=== PATIENT | female | born 1960 | race Caucasian/White ===

== ENCOUNTER 2018-03-17 08:26 | Day surgery (SDC) | payer OTHER, SELFPAY ==
--- NOTE | 2018-03-17 | PATH_ITS ---
[facility] Accession Number: [id number] . 01 Material submitted: . POYLP AT 80CM . 02 Diagnosis: Colon, Polyp at 80 cm, Biopsy: Sessile serrated adenoma. [facility]/03/21/2018 . 02 Electronically signed: . Ann Marie Zamora MD, Pathologist NPI- [id number] . 01 Gross description: . POYLP AT 80CM: Received in formalin is 1 fragment(s) of lynch, soft tissue measuring 0.4 x 0.3 x 0.2 cm submitted entirely in 1 cassette(s) /TRC /TRC . 02 Pathologist provided ICD-10: D12.6 . 02 CPT . 919362 Performed at: 01 [facility] [address] [id number] MD Alexis Wills MD Phone: [phone] Performed at: 02 [facility] [address] [place], [place] [id number] MD David Bolanos MD Phone: [phone]
[2018-03-17 08:59] VITALS: BP 116/74; PULSE 65; RESP 16; TEMP 36.6; O2SAT 99; BMI 33.9
[2018-03-17 09:16] VITALS: BMI 33.9
[2018-03-17] MEDS: SODIUM CHLORIDE 0.9% 1,000 ML 200 ML IV ×2 (09:17→11:39)
--- NOTE | 2018-03-17 10:00 | P.HP_ITS ---
History of Present Illness Chief complaint: colonoscopy [id number] Narrative: Ewa Heaton is a 57 year old female who presents today for her 1st screening colonoscopy. She denies any problems or symptoms related to the function of her GI tract. She reports that she needs a colonoscopy as part of her health maintenance program. Patient History Surgical History History of tonsillectomy Status post endometrial ablation Status post knee surgery Family & Social History Family History: Reviewed 03/17/18 by Zoe Heard MD Social History: household members spouse Meds Home Medications Medication Instructions Recorded Confirmed Type cholecalciferol (vitamin D3) 50,000 unit PO 2X/WEEK #20 cap 12/11/16 Rx hydrochlorothiazide 25 mg PO QDAY #90 tab 04/08/17 Rx [tumeric] #0 08/04/17 History triamcinolone acetonide 1 marie TOPICAL BID #30 gm 08/04/17 Rx [cod liver oil] #0 01/12/18 History levothyroxine [Synthroid] 88 mcg PO QAM #30 tab 01/14/18 Rx pravastatin 20 mg PO HS #30 tab 01/14/18 Rx Allergies Allergy/AdvReac Type Severity Reaction Status Date / Time amoxicillin [AMOXICILLIN] Allergy Severe HIVES, Unverified 03/17/18 08:59 ANGIOEDEMA clavulanic acid Allergy Severe HIVES, Unverified 03/17/18 08:59 [CLAVULANIC ACID] ANGIOEDEMA Penicillins [PENICILLINS] Allergy Unknown Unverified 03/17/18 08:59 Review of Systems Review of Systems All systems reviewed & are unremarkable except as noted in HPI and below Exam Vital Signs (past 8 hours): Vital Signs - 8 hr 3 03/17/18 08:59 Temperature 97.8 F Pulse Rate 65 Respiratory Rate 16 Blood Pressure 116/74 Pulse Oximetry 99 Pulse Oximetry 99 Oxygen Delivery Method Room Air Narrative Exam Narrative: Very pleasant well-nourished well-developed healthy-appearing lady in no obvious distress. HEENT: Normocephalic and atraumatic, pupils equal round reactive to light accommodation with anicteric sclera Lungs: Clear to auscultation bilaterally Heart: Regular rate and rhythm without murmur Abdomen: Soft, nontender, active bowel sounds Extremities: Warm and well-perfused without edema Assessment & Plan Plan: Plan: Very pleasant and healthy lady in need of a screening colonoscopy. We discussed the risks and benefits of the procedure the patient has expressed a desire to continue today
[2018-03-17] MEDS: ONDANSETRON 4 MG/2 ML INJ IV ×2 (10:27→11:40)
[2018-03-17] MEDS: MIDAZOLAM 5 MG/5 ML VIAL IV (10:29)
[2018-03-17] MEDS: fentaNYL 250 MCG/5 ML INJ IV (10:31)
--- NOTE | 2018-03-17 10:41 | PM.OP.1 ---
Operative Date/Time/Diagnoses - Date of procedure: 03/17/18 Time of procedure: 10:41 Pre-op diagnosis: Screening Post-op diagnosis: same Procedure & Clinicians Procedure: Colonoscopy to the cecum with polypectomy Same procedure as scheduled: Yes Indications: No prior colonoscopy Surgeon: Zoe Heard Click Yes if Unassisted: Yes Anesthesia Type: Sedation (Versed 5 mg; fentanyl 200 mcg) Operative Notes Findings: 1. Adequate prep 2. Single polyp at 80 cm from the anal verge. The polyp was sessile and removed with cold forceps and submitted for pathology 3. Tortuous sigmoid and transverse colons 5. Significant diverticulosis between 30 and 40 cm from the anal verge. No significant stricture or narrowing 6. Grade 1-2 internal hemorrhoids Closure Type: not applicable Specimen(s): other (Polyp at 80 cm) Estimated Blood Loss (mL): 1 Procedure in detail: After obtaining informed consent, the patient was brought to the GI suite and placed in the left lateral decubitus position on the examination table. After placement of appropriate monitors, the patient was given incremental doses of Versed and Fentanyl until an appropriate level of sedation was achieved. A time out was held per SCOAP protocol. A digital rectal examination was performed and did not reveal any masses or obstructing lesions. The colonoscope was gently passed into the patient's anus and the entire colon navigated to the level of the cecum with minimal difficulty. Once in the cecum, the scope was withdrawn being sure to go before and beyond all mucosal folds and prominences and get an excellent examination. The findings are noted above. At the level of the rectal vault, the scope was retroflexed and the internal anal canal was examined. The scope was straightened and air aspirated from the colon. The instrument was removed from the patient's body and the procedure was concluded. The patient was allowed to awaken from sedation without difficulty and taken to the post-anesthesia care unit in good condition. Total sedation time 21 min Total withdrawal time 12 min Complications: none Condition: stable Disposition: PACU Plan for aftercare: 1. Discharge to home 2. Plan for next colonoscopy in 5 years or as clinically indicated
[2018-03-17 10:45] VITALS: BP 113/75; PULSE 70; RESP 16; TEMP 36.1; O2SAT 97
[2018-03-17 11:08] VITALS: BP 116/74; PULSE 70; RESP 16; O2SAT 93
[2018-03-17 11:23] VITALS: BP 109/72; PULSE 58; RESP 15; TEMP 36.3; O2SAT 98
[2018-03-17 12:23] VITALS: BP 122/83; PULSE 69; RESP 16; TEMP 36.1; O2SAT 98
--- NOTE | 2018-03-17 12:56 | SUR.PHASEII ---
PT DC TO HOME AT 1230 IN STABLE CONDITION. PT STATED SHE FELT LESS NAUSATED THAN PREVIOUSLY AND REQUESTED TO GO HOME. PT ABLE TO DRESS SELF WITH SBA FROM WITHOUT ANY DIFFICULTLY. INSTRUCTED PT TO CALL PROVIDER OFFICE IF NAUSEA LAST LONGER THAN SIX HOURS. PT AND PT SPOUSE VOICED UNDERSTANDING.
== END 2018-03-17 12:30 | disposition home or self-care (01) ==
PROVIDERS: PCP Family Medicine; Visit Provider Surgery
PROC: 0DJD8ZZ Inspection of Lower Intestinal Tract, Via Natural or Artificial Opening Endoscopic (ICD-10-PCS; CPT 45378; principal; 2018-03-17 09:45)
DX: Z12.11 Encounter for screening for malignant neoplasm of colon (principal); K57.30 Diverticulosis of large intestine without perforation or abscess without bleeding; K64.1 Second degree hemorrhoids; D12.4 Benign neoplasm of descending colon
CPT/HCPCS: 45380; 88305; 99152; J2250; J2405; J3010

== ENCOUNTER → 2018-03-23 09:58 | Outpatient (CLI) | payer OTHER, SELFPAY ==
[2018-03-23 11:13] LABS: TSH w/ Reflex to FT4 1.45 uIU/mL (0.47-4.68)
== END ==
PROVIDERS: PCP Family Medicine; Visit Provider Family Medicine
DX: E03.9 Hypothyroidism, unspecified (principal)
CPT/HCPCS: 36415; 84443

== ENCOUNTER → 2018-07-08 07:12 | Outpatient (CLI) | payer OTHER, SELFPAY ==
[2018-07-08 07:39] LABS: Alanine Aminotransferase 23 IU/L (9-52); Albumin 4.3 g/dL (3.5-5.0); Albumin Globulin Ratio 1.4 (1.0-2.8); Alkaline Phosphatase 35 U/L (38-126); Aspartate Aminotransferase 20 IU/L (14-36); BUN Creatinine Ratio 18.6 (6-22); Bilirubin Total 0.8 mg/dL (0.2-1.3); Blood Urea Nitrogen 13 mg/dL (7-17); Carbon Dioxide 30 mmol/L (22-32); Chloride 101 mmol/L (98-107); Cholesterol 224 mg/dL (140-199); Estimated Glomerular Filt Rate > 60.0 mL/min (>60); Glucose 101 mg/dL (70-100); HDL Cholesterol 50 mg/dL (40-60); HEMOLYSIS < 15 (0-50); LDL Cholesterol Calculated 144 mg/dL (<100); Potassium 3.8 mmol/L (3.4-5.1); Sodium 141 mmol/L (137-145); Total Protein 7.3 g/dL (6.3-8.2); Triglycerides 150 mg/dL (35-150)
== END ==
PROVIDERS: PCP Family Medicine; Visit Provider Family Medicine
DX: E78.2 Mixed hyperlipidemia (principal)
CPT/HCPCS: 36415; 80053; 80061

== ENCOUNTER → 2018-08-11 08:39 | Outpatient (CLI) | payer OTHER, SELFPAY | PROVIDERS: PCP Family Medicine; Visit Provider Otolaryngology | DX: R42 Dizziness and giddiness (principal); Z53.9 Procedure and treatment not carried out, unspecified reason ==

== ENCOUNTER 2018-08-12 22:18 | Observation (INO) | payer OTHER, SELFPAY ==
[2018-08-12 22:30] VITALS: BP 149/90; PULSE 69; RESP 18; TEMP 36.7; O2SAT 97; BMI 33.0
--- NOTE | 2018-08-12 22:49 | PC.NURSE ---
Pt reports sensation intact, no balance problem noted during ambulation from check in desk to the room 6.
--- NOTE | 2018-08-12 22:52 | DI.CT.S_ITS ---
PROCEDURE: CT HEAD/BRAIN WO CON INDICATIONS: stroke symptoms, now resolved TECHNIQUE: Noncontrast 4.5 mm thick angled axial sections acquired from the foramen magnum to the vertex, with coronal and sagittal reformats. For radiation dose reduction, the following was used: automated exposure control, adjustment of mA and/or kV according to patient size. COMPARISON: None. FINDINGS: Image quality: Excellent. CSF spaces: Basal cisterns are patent. No extra-axial fluid collections. Ventricles are normal in size and shape. Brain: No midline shift. No intracranial masses or hemorrhage. Moore-white matter interface is normal. Skull and face: Calvarium and visualized facial bones are intact, without suspicious lesions. Sinuses: Visualized sinuses and mastoids are clear. IMPRESSION: Normal for age, source of current symptoms is not seen. Note: These findings are concordant with the preliminary interpretation. Dictated by: Danny Biggs M.D. on 08/13/2018 at 8:32 Approved by: Danny Biggs M.D. on 08/13/2018 at 8:32
[2018-08-12 23:14] LABS: Prothrombin Time 10.8 SECONDS (10.1-12.7)
[2018-08-12 23:16] LABS: PTT Partial Thromboplastin Tim 29 SECONDS (26.4-36.2)
[2018-08-12 23:28] LABS: Bacteria Urine None Seen
[2018-08-12] MEDS: SODIUM CHLORIDE 0.9% 1,000 ML 150 ML IV (23:29)
[2018-08-12 23:35] LABS: Urine Amphetamines Negative (Negative); Urine Barbiturates Negative (Negative); Urine Benzodiazepines Negative (Negative); Urine Cocaine Negative (Negative); Urine MDMA Negative (Negative); Urine Methadone Negative (Negative); Urine Methamphetamines Negative (Negative); Urine Morphine/Opi cutoff 2000 Negative (Negative); Urine Oxycodone Negative (Negative); Urine Phencyclidine Negative (Negative); Urine Tetrahydrocannabinol Negative (Negative); Urine Tricyclic Antidepressant Negative (Negative)
[2018-08-12 23:41] LABS: RBC Urine 0-1/HPF (0-5/HPF); Squamous Epithelial Cell Urine 0-1 /HPF; WBC Urine 0-1/HPF (0-5/HPF)
[2018-08-12 23:41] LABS: Add Manual Diff / Slide Review NO; Eosinophils Percent Auto 2.2 % (2-4); Hematocrit 39.9 % (36-46); Hemoglobin 13.5 g/dL (12.0-16.0); Lymphocytes Percent Auto 36.9 % (25-40); Mean Corpuscular HGB Conc 33.8 % (30-36); Mean Corpuscular Hemoglobin 29.1 PG (26-34); Mean Corpuscular Volume 86.1 fL (80-100); Monocytes Percent Auto 10.8 % (3-14); Neutrophils Absolute Auto 3200 /uL (3000-5900); Neutrophils Percent Auto 48.1 % (50-75); Platelet Count 231 X10^3/uL (150-400); Red Blood Cell Count 4.63 X10^6/uL (4.0-5.2); Red Cell Distribution Width 13.8 % (11.6-14.8); White Blood Cell Count 6.6 X10^3/uL (4.5-11.0)
--- NOTE | 2018-08-12 23:41 | ED_ITS ---
HPI - Headache General Chief Complaint: Headache Stated Complaint: OCCULAR MIGRAINE CONFUSION NUMBNESS OF BACK OF HEA Time Seen by Provider: 08/12/18 22:20 Source: patient and family Mode of arrival: ambulatory Limitations: no limitations History of Present Illness HPI Narrative: 57-year-old former smoker female presents with a constellation of neurologic symptoms. At about 8:30 p.m. the patient had a sudden onset of visual disturbance in both eyes that included floating, flashing colors but no visual field cuts. Soon thereafter the patient describes a scenario where she was unable to speak. She can't think clearly and recognize that she was not getting the words out that she was trying to say. She denies any focal muscular problem such as numbness, weakness or tingling. She denies any recent injury or history of stroke. She denies any fever or chills. She does have a history of hypertension, hyperlipidemia and a strong family history of stroke. Her symptoms are resolved Onset (ago): hour(s) Onset description: sudden Related Data Home Medications Medication Instructions Recorded Confirmed [tumeric] 2 cap/day PO QAM #0 08/04/17 08/13/18 [cod liver oil] #0 01/12/18 07/12/18 cholecalciferol (vitamin D3) 2,000 2,000 unit PO DAILY 07/12/18 08/13/18 unit capsule ezetimibe 1 tab PO DAILY 08/12/18 08/13/18 hydrochlorothiazide 1 tab PO QDAY 08/12/18 08/13/18 levothyroxine [Synthroid] 1 tab PO QAM 08/12/18 08/13/18 Previous Rx's Medication Instructions Recorded triamcinolone acetonide 1 marie TOPICAL BID #30 gm 08/04/17 ezetimibe 10 mg tablet 10 mg PO DAILY #90 tab 04/15/18 Allergies Allergy/AdvReac Type Severity Reaction Status Date / Time amoxicillin [AMOXICILLIN] Allergy Severe HIVES, Verified 08/12/18 22:36 ANGIOEDEMA clavulanic acid Allergy Severe HIVES, Verified 08/12/18 22:36 [CLAVULANIC ACID] ANGIOEDEMA Penicillins [PENICILLINS] Allergy Unknown Verified 08/12/18 22:36 Review of Systems Review of Systems All systems reviewed & are unremarkable except as noted in HPI and below Constitutional Denies chills, Denies fever(s), Denies lethargy and Denies weakness Eyes Reports change in vision, Denies eye discharge, Denies irritation and Denies loss of vision ENT Ears, Nose, Mouth, and Throat: Denies change in voice, Denies neck pain and Denies sore throat Cardiovascular Denies chest pain, Denies irregular heart rhythm, Denies lightheadedness, Denies palpitations, Denies dyspnea, Denies dyspnea on exertion and Denies orthopnea Respiratory Denies cough, Denies dyspnea, Denies dyspnea on exertion and Denies wheezing Gastrointestinal Gastrointestinal: Denies abdominal pain, Denies change in bowel habits, Denies diarrhea, Denies nausea and Denies vomiting Genitourinary Denies hematuria, Denies flank pain, Denies urinary incontinence and Denies urinary urgency Musculoskeletal Denies neck pain Integumentary/Breasts Denies pruritus, Denies erythema, Denies rash and Denies wounds Neurologic Reports abnormal speech, Denies confusion, Reports lack of coordination, Denies loss of vision and Denies weakness Psychiatric Denies anxiety, Denies confusion, Denies depression, Denies homicidal ideation and Denies suicidal ideation Endocrine Denies palpitations Hematologic/Lymphatic Denies easy bruising Allergic/Immunologic Denies wheezing PFSH Medical History Hypertension (Acute) Asthma (Chronic) Foot pain (Chronic ~2015) Hay fever (Chronic) Hyperlipidemia (Chronic) Hypothyroidism (Chronic ~2012) Psoriasis (Chronic ~1989) Vertigo (Chronic ~2009) Chicken pox (Resolved ~1965) Shingles (Resolved ~06/09/16) Surgical History Anesthesia (Resolved) History of eyelid surgery (Resolved ~2013) History of tonsillectomy (~1965) Status post endometrial ablation (~2006) Status post knee surgery (~2012) Family History Mother Heart disease High cholesterol Mental health problem Grandfather Stroke Grandmother Stroke Grandfather Cancer Social History household members: spouse Smoking Status: Former smoker alcohol intake: never Exam Narrative Exam Narrative: 57-year-old female resting comfortably, in no obvious current distress GENERAL: This is a well-nourished, well-developed patient, in mild distress. HEAD: Atraumatic. Normocephalic. No temporal or scalp tenderness. EYES: Pupils equal round and reactive. Extraocular motions intact. No scleral icterus. No injection or drainage. ENT: Nose without bleeding, purulent drainage or septal hematoma. Throat without erythema, tonsillar hypertrophy or exudate. Uvula midline. Airway patent. NECK: Trachea midline. No JVD or lymphadenopathy. Supple, nontender, no meningeal signs. CARDIOVASCULAR: Regular rate and rhythm without murmurs, gallops, or rubs. RESPIRATORY: Clear to auscultation. Breath sounds equal bilaterally. No wheezes , rales, or rhonchi. GASTROINTESTINAL: Abdomen soft, non-tender, nondistended. No hepato-splenomegaly , or palpable masses. No guarding. EXTREMITIES: No clubbing, cyanosis, or edema. No joint tenderness, effusion, or edema noted. BACK: Nontender without deformity or crepitance. No flank tenderness. NEURO: AOx3. SKIN: No rash or erythema. Initial Vital Signs Initial Vital Signs: Vital Signs Temperature 98.1 F 08/12/18 22:30 Pulse Rate 69 08/12/18 22:30 Respiratory Rate 18 08/12/18 22:30 Blood Pressure 149/90 H 08/12/18 22:30 Pulse Oximetry 97 08/12/18 22:30 Scores ABCD2 Age >= 60 years: no Initial BP. Either SBP >= 140 or DBP >= 90.: yes Clinical features of the TIA: speech disturbance without weakness Duration of symptoms: 10-59 minutes History of diabetes: no ABCD2 Score: 3 NIH Stroke Scale Level of Conciousness: Alert, keenly responsive Ask month/age: Answers both questions correctly. Open/close eyes, close hand: Performs both tasks correctly Best gaze horizontal: Normal Visual cassidy: No visual loss Facial palsy: Normal symetrical movement Left arm drift: No drift for full 10 sec Right arm drift: No drift for full 10 sec Left leg drift: No drift for full 10 sec Right leg drift: No drift for full 10 sec Limb ataxia: Absent Sensory on face/arms/legs: Normal, no sensory loss Best language: No aphasia, normal Dysarthria: Normal Extinction or inattention: No abnormality Total NIH Stroke scale score: 0 Course Orders Ordered: ED Orders 08/12/18 22:52 CT head/brain wo con Stat EKG-12 Lead Stat 08/12/18 23:04 Partial Thromboplastin Time Stat Prothrombin Time INR Stat 08/12/18 23:15 Urine Culture Stat Urine Drug Screen, Rapid Stat Urine Microscopic Stat 08/12/18 23:27 Basic Metabolic Panel Stat Complete Blood Count AUTO DIFF Stat 08/13/18 01:24 EC echo doppler complete Stat MR stroke Stat Aspirin (Aspirin) 325 mg PO DAILY NATHALIE Ezetimibe (Zetia) 10 mg PO DAILY NATHALIE Discontinued Medications Aspirin (Aspirin Chew) 324 mg PO NOW ONE Stop: 08/12/18 23:45 Last Admin: 08/13/18 00:24 Dose: 324 mg Sodium Chloride (Normal Saline 0.9%) 1,000 mls @ 150 mls/hr IV CONT NATHALIE Last Infusion: 08/13/18 00:30 Dose: 150 mls/hr Admin: 08/12/18 23:29 Dose: 150 mls/hr Vital Signs - 8 hr 08/12/18 22:30 08/13/18 00:30 08/13/18 01:31 Temperature 98.1 F 98.2 F Pulse Rate 69 81 77 Respiratory Rate 18 16 20 Blood Pressure 149/90 H 150/73 H Blood Pressure [Right Arm] 134/81 Pulse Oximetry 97 99 97 MDM - Headache Differential Diagnosis Differential diagnosis: Likely migraine, tension headache, headache and meningitis Medical Records Attestation: I reviewed the patient's medical records. Lab Data Attestation: I reviewed the patient's lab results. Result diagrams: 08/12/18 23:27 08/12/18 23:27 Lab Results 08/12/18 08/12/18 08/12/18 Range/Units 23:04 23:15 23:15 WBC (4.5-11.0) X10^3/uL RBC (4.0-5.2) X10^6/uL Hgb (12.0-16.0) g/dL Hct (36-46) % MCV (80-100) fL MCH (26-34) PG MCHC (30-36) % RDW (11.6-14.8) % Plt Count (150-400) X10^3/uL Neut % (Auto) (50-75) % Lymph % (Auto) (25-40) % [place] % (Auto) (3-14) % Eos % (Auto) (2-4) % Baso % (Auto) (0-2) % Neut # (Auto) (3799-2092) /uL PT 10.8 (10.1-12.7) SECONDS INR 1.0 (0.9-1.3) APTT 29 (26.4-36.2) SECONDS Sodium (137-145) mmol/L Potassium (3.4-5.1) mmol/L Chloride (98-107) mmol/L Carbon Dioxide (22-32) mmol/L BUN (7-17) mg/dL Creatinine (0.52-1.04) mg/dL Estimated GFR (>60) mL/min BUN/Creatinine Ratio (6-22) Glucose (70-100) mg/dL Calcium (8.4-10.2) mg/dL Urine RBC 0-1/hpf (0-5/HPF) Urine WBC 0-1/hpf (0-5/HPF) Ur Squamous Epith Cells 0-1 /hpf Urine Bacteria None seen (None) Ur Culture Indicated? Specimen cultured Micro UA Comment Not Reportable Urine Opiates Screen Negative (Negative) Ur Oxycodone Screen Negative (Negative) Urine Methadone Screen Negative (Negative) Ur Barbiturates Screen Negative (Negative) U Tricyclic Antidepress Negative (Negative) Ur Phencyclidine Scrn Negative (Negative) Ur Amphetamines Screen Negative (Negative) U Methamphetamines Scrn Negative (Negative) Ur MDMA Scrn (Ecstasy) Negative (Negative) U Benzodiazepines Scrn Negative (Negative) Urine Cocaine Screen Negative (Negative) U Marijuana (THC) Screen Negative (Negative) 08/12/18 08/12/18 Range/Units 23:27 23:27 WBC 6.6 (4.5-11.0) X10^3/uL RBC 4.63 (4.0-5.2) X10^6/uL Hgb 13.5 (12.0-16.0) g/dL Hct 39.9 (36-46) % MCV 86.1 (80-100) fL MCH 29.1 (26-34) PG MCHC 33.8 (30-36) % RDW 13.8 (11.6-14.8) % Plt Count 231 (150-400) X10^3/uL Neut % (Auto) 48.1 L (50-75) % Lymph % (Auto) 36.9 (25-40) % [place] % (Auto) 10.8 (3-14) % Eos % (Auto) 2.2 (2-4) % Baso % (Auto) 2.0 (0-2) % Neut # (Auto) 3200 (1719-2002) /uL PT (10.1-12.7) SECONDS INR (0.9-1.3) APTT (26.4-36.2) SECONDS Sodium 139 (137-145) mmol/L Potassium 3.0 L (3.4-5.1) mmol/L Chloride 102 (98-107) mmol/L Carbon Dioxide 28 (22-32) mmol/L BUN 12 (7-17) mg/dL Creatinine 0.70 (0.52-1.04) mg/dL Estimated GFR > 60.0 (>60) mL/min BUN/Creatinine Ratio 17.1 (6-22) Glucose 100 (70-100) mg/dL Calcium 8.8 (8.4-10.2) mg/dL Urine RBC (0-5/HPF) Urine WBC (0-5/HPF) Ur Squamous Epith Cells Urine Bacteria (None) Ur Culture Indicated? Micro UA Comment Urine Opiates Screen (Negative) Ur Oxycodone Screen (Negative) Urine Methadone Screen (Negative) Ur Barbiturates Screen (Negative) U Tricyclic Antidepress (Negative) Ur Phencyclidine Scrn (Negative) Ur Amphetamines Screen (Negative) U Methamphetamines Scrn (Negative) Ur MDMA Scrn (Ecstasy) (Negative) U Benzodiazepines Scrn (Negative) Urine Cocaine Screen (Negative) U Marijuana (THC) Screen (Negative) Urine Dip Bedside Urine Glucose Negative Bedside Urine Bilirubin - Negative Bedside Urine Ketone - Negative Urine Specific [place] 1.015 Bedside Urine Occult Blood +/- Bedside Urine pH 6.5 Bedside Urine Protein - Negative Bedside Urine Urobilinogen - Negative Bedside Urine Nitrite - Negative Bedside Urine Leukocytes + [address] scan - head: Radiologist's impression: No acute intracranial abnormality ECG Data Attestation: I personally reviewed and interpreted this ECG as follows: Prior ECG tracings: not available for review Interpretation: EKG is normal sinus rhythm and free of any signs of ischemia or ectopy. Discharge Plan Departure Patient Disposition: Admitted as Observation Clinical Impression: Brain TIA Discharge Date/Time: 08/13/18 00:50 Interventions: ED Discharge Assessment Last Done: 08/13/18 00:47 Admit Date/Time: 08/13/18 00:21 Admit Provider: Jose Potter
[2018-08-12 23:42] LABS: Culture Indicated Urine Specimen Cultured
[2018-08-12 23:44] LABS: BUN Creatinine Ratio 17.1 (6-22); Blood Urea Nitrogen 12 mg/dL (7-17); Calcium 8.8 mg/dL (8.4-10.2); Carbon Dioxide 28 mmol/L (22-32); Chloride 102 mmol/L (98-107); Estimated Glomerular Filt Rate > 60.0 mL/min (>60); Glucose 100 mg/dL (70-100); HEMOLYSIS < 15 (0-50); Sodium 139 mmol/L (137-145)
[2018-08-13] MEDS: ASPIRIN 81 MG TAB 324 MG PO (00:24)
[2018-08-13 00:30] VITALS: BP 134/81; PULSE 81; RESP 16; O2SAT 99
[2018-08-13 01:10] VITALS: BMI 33.0
--- NOTE | 2018-08-13 01:24 | DI.MRI.S_ITS ---
PROCEDURE: MR STROKE Pre- and post-contrast brain MRI, non-contrast brain MR angiogram, pre- and postcontrast neck MR angiogram INDICATIONS: vision/speech change TECHNIQUE: Brain: Noncontrast axial T1 spin echo, axial T2 fast spin echo, sagittal and axial FLAIR, coronal T2 fast spin echo, axial gradient echo, axial diffusion and ADC through the brain. After the administration of contrast, axial 3D VIBE of the cranial vasculature and brain. Brain MRA: Non-contrast 3-D time of flight MR angiogram, with multiple lcnvksp-cziukvgec-wiieljzkrd (MIP) reformats performed. Neck MRA: Axial and sagittal TruFISP through the neck. Coronal dynamic MR angiogram during administration of contrast in the arterial and venous phases, with 3-dimenstional ovouzrm-tfrklakdg-tliqbdrgpd (MIP) reformats constructed from subtraction images. COMPARISON: None. FINDINGS: Image quality: Excellent. BRAIN: CSF spaces: Ventricles are normal in size and shape. Basal cisterns are patent. No extra-axial fluid collections. Brain: No intracranial bleeds or mass effects. Moore-white matter interface is normal. Diffusion weighted images show no acute ischemic insults. Brainstem appears normal. Normal intravascular flow voids are present. No abnormal intracranial enhancement. Skull and face: Calvarial marrow signal is normal. Orbits appear normal. Sinuses: Sinuses and mastoids are clear. BRAIN MR ANGIOGRAM: Anterior circulation: Intracranial internal carotid arteries are normal in size and enhancement. The flow within the paired anterior cerebral arteries is normal and symmetric. The flow within the middle cerebral arteries is normal and symmetric. The anterior communicating artery is seen. No stenoses, occlusions, or aneurysms. Posterior circulation: The visualized portions of the vertebral arteries demonstrate normal caliber, and join to form a normal appearing basilar artery. The flow within the posterior cerebral arteries is normal and symmetric. No stenoses, occlusions, or aneurysms. NECK MR ANGIOGRAM: Carotids: Great vessels demonstrate a conventional anatomy as they arise from the aortic arch. The origins of the common carotid arteries appear patent. The calibers and courses of both common carotid arteries are normal. The bifurcation regions appear normal bilaterally. The internal carotid arteries demonstrate normal course and caliber. Posterior circulation: The origins of the vertebral arteries appear patent. More superior portions of both vertebral arteries demonstrate asymmetric course and caliber, with the left vertebral artery dominant and the right vertebral artery extending contiguously into the right posterior inferior cerebellar artery. Miscellaneous: Subclavian arteries appear patent. Pre-contrast images through the neck show no soft tissue abnormalities. IMPRESSION: BRAIN MRI: Normal for age. BRAIN MR ANGIOGRAM: Normal intracranial MR angiogram. NECK MR ANGIOGRAM: Normal cervical MR angiogram with left vertebral artery dominant as a normal anatomic variant and contiguous extension of the superior right vertebral artery into the right posterior inferior cerebellar artery. Dictated by: Danny Biggs M.D. on 08/13/2018 at 13:03 Approved by: Danny Biggs M.D. on 08/13/2018 at 13:08
--- NOTE | 2018-08-13 01:24 | DI.ECHO.S_ITS ---
[place] [facility]---------+ [facility] +---------+ : : [address] : [address] : : : : [id number] : : : : Phone: [phone]---------+ Echocardiogram Report + + :Name: CHERIE HERRERA Study Date: 08/13/2018 Height: 66 in : :[facility] Exam Location: [facility] Weight: 205 lb : : Gender: Female BSA: 2.0 m2 : :: 1960 Age: 57 yrs BP: 119/87 mmHg: :Reason For Study: STROKE : : Performed By: Ino Child : :Referring: KE KILLIAN : + + Interpretation Summary 1) Normal left ventricular thickness, size, wall motion, and systolic function (EF 60-65%). 2) Normal right ventricular size and function. 3) No significant valvular abnormalities. 4) Compared to the Echo done 06/30/2012, no significant change. Procedure: A two-dimensional transthoracic echocardiogram with color flow and Doppler was performed. The study quality was technically good. Comparison is made with the echocardiogram of 06/30/12. A saline contrast injection was performed to assess for cardiac shunting. The patient was in normal sinus rhythm during the exam. Left Ventricle: The left ventricle is normal in size. There is normal left ventricular wall thickness. The ejection fraction is estimated to be 60-65%. There are no focal wall motion abnormalities. Right Ventricle: The right ventricle is normal in size and function. Atria: The left atrium is mildly dilated. Right atrial size is normal. Injection of contrast documented no interatrial shunt. Mitral Valve: The mitral valve is normal in structure and function. There is trace mitral regurgitation. Aortic Valve: The aortic valve is normal in structure and function. The aortic valve is trileaflet. The aortic valve opens well. No aortic regurgitation is present. Tricuspid Valve: The tricuspid valve is normal in structure and function. There is trace tricuspid regurgitation. The right ventricular systolic pressure is estimated to be at least 19 mmHg based on an estimated right atrial pressure of 3 mm Hg. Pulmonic Valve: The pulmonic valve is normal in structure and function. There is no pulmonic valvular regurgitation. Great Vessels: The aortic root is normal size. The dimensions of the ascending aorta are normal. The pulmonary artery is normal size. The IVC is of normal diameter and collapses greater than 50% with a sniff. This suggests a low right atrial pressure of 3 mm Hg. Pericardium/ Pleura There is no pericardial effusion. There is no pleural effusion. MMode/2D Measurements & Calculations LVIDd: 4.4 cm Ao root diam: 3.4 cm LVIDs: 3.1 cm Aortic Jxn: 2.3 cm FS: 29.3 % asc Aorta Diam: 3.4 cm EPSS: 0.29 cm IVSd: 1.0 cm LVPWd: 0.90 cm LV landrum. diameter/BSA (cm/m^2): 2.2 LV sys. diameter/BSA (cm/m^2): 1.5 LA dimension: 3.3 cm RA long axis: 4.5 cm LA A2 area: 21.4 cm2 RA area: 16.5 cm2 LA A4 area: 21.8 cm2 RA vol: 51.5 ml LA length (vol): 5.0 cm RA : 25.5 ml/m2 LA vol: 78.9 ml IVC diam: 1.7 cm LA vol index: 39.0 ml/m2 Doppler Measurements & Calculations Ao V2 max: 117.2 cm/sec LVOT Max Maxim: 101.7 cm/sec Ao V2 mean: 84.8 cm/sec LV V1 max P.1 mmHg Ao max P.5 mmHg LV V1 VTI: 22.7 cm Ao mean P.1 mmHg sev ratio: 0.98 Ao V2 VTI: 23.0 cm MV E max maxim: 52.7 cm/sec TR max maxim: 197.6 cm/sec MV A max maxim: 60.1 cm/sec TR max P.6 mmHg MV E/A: 0.88 PA V2 max: 83.0 cm/sec Med Peak E' Maxim: 6.2 cm/sec PA V2 mean: 59.4 cm/sec E/E' med: 8.5 PA mean P.6 mmHg Lat Peak E' Maxim: 9.9 cm/sec PA pr(Accel): 26.6 mmHg E/E' lat: 5.3 PA Accel Time: 0.12 sec E/e' average: 6.9 MV dec time: 0.19 sec Pulm A Revs Maxim: 24.2 cm/sec Reading Physician:03:18 PM
[2018-08-13 01:31] VITALS: BP 150/73; PULSE 77; RESP 20; TEMP 36.8; O2SAT 97
--- NOTE | 2018-08-13 01:32 | PC.NURSE ---
Late Entry at 0045-swallow test completed. Pt speech clear and able to follow instructions and able to manage oral secretions. Pt able to take sips of water and drinking water w/o clearing throat, coughing. Medicated pt with ASA w/o difficulty.
--- NOTE | 2018-08-13 02:26 | PC.NURSE ---
Admitted to room 218, oriented to her room. Showed her call light, TV & bed controls. Denies any BRICE, CP. & other discomfort. No C/O dizziness & nausea, ambulated to the BR & gait steady. Encouraged to call for any assistance, call light w/in reached. Will cont. POC & monitor.
[2018-08-13 05:34] VITALS: BP 133/73; PULSE 69; RESP 20; TEMP 36.8; O2SAT 98
[2018-08-13 07:50] VITALS: BP 130/74; PULSE 67; RESP 16; TEMP 37.2; O2SAT 99
[2018-08-13] MEDS: SODIUM CHLORIDE 0.9% FLUSH 10 ML IV (09:39)
[2018-08-13] MEDS: EZETIMIBE 10 MG TABLET PO (09:39)
[2018-08-13] MEDS: ASPIRIN 325 MG TABLET PO (09:39)
[2018-08-13] MEDS: LORazepam 2 MG/ML SYRINGE 0.5 MG IV ×2 (11:01→11:36)
[2018-08-13] MEDS: POTASSIUM CHLORIDE 20 MEQ/15 ML UDC 40 MEQ PO (12:32)
[2018-08-13 12:55] VITALS: BP 119/84; PULSE 81; RESP 18; TEMP 37.1; O2SAT 97
--- NOTE | 2018-08-13 14:31 | PC.NURSE ---
Patient without complaint. Denies vision changes. Ambulating independently. Medicated with IV ativan per MD order prior to MRI for patient's severe claustrophobia. Patient able to complete MRI without problems. ECHO done at bedside, now awaiting interpretation. Dr. Potter reported this morning that likely patient will be able to discharge soon if stable and results wnl back. Will continue to follow. Patient's sister at bedside, call light within reach.
--- NOTE | 2018-08-13 15:14 | PC.NURSE ---
Dr. Potter called, telephone order received that patient is cleared to be discharged to home tonight after dinner. No new prescriptions or medications. Patient to continue all home medications as previously prescribed. Patient to follow up with her PCP Dr. Miguel next week.
--- NOTE | 2018-08-13 15:29 | CM.DANOTE ---
DCP/Assessement: Reviewed chart. Patient is a 57yr old female admitted to [facility] under [facility] status with migraine. PCP is Dr. Miguel. Primary payor is 1)Alia Chan. Met with patient explained CM/SW role. Patient reports that she is discharging home today. Patient has family in the room and does not anticipate any d/c planning needs. P: Home when medically stable. Orders anticipated for later this afternoon. TYSON Sebastian Discharge Planning/Care Management CM Discharge Assessment Start: 08/13/18 15:26 Freq: Status: Active Protocol: Document 08/13/18 15:26 KJS (Rec: 08/13/18 15:29 KJS [id number]) Discharge Planning Assessment Assigned Operations General Agent TYSON Sebastian Contact Information Jamin Heaton (spouse) Advance Directives? No Advance Directives on File No History Provided By Patient Family Member Has Patient been admitted in last 30 No days? Prior Living Arrangements House Household Members spouse Type of transporation used prior to Drives own vehicle admit Independent with ADL's Yes Is patient alert and oriented? Yes Caregiver for Another No Barriers to Discharge No Discharge Plan Home Transportation Arrangement Family to provide transport home. Referrals Initiated None needed Whiteboard Updated in Patient Room with No name and ext. # of Operations General Agent Comment Attempted no pen in room. Patient discharging today without any d/c planning needs or concerns. Review Status In Process Please Provide Date Initial DC 08/13/18 Assessment Was Performed Next Review Type Continued Stay Review
[2018-08-13 15:44] VITALS: BP 117/79; PULSE 73; RESP 18; TEMP 37.1; O2SAT 97
--- NOTE | 2018-08-13 18:33 | PM.DS.1 ---
History of Present Illness Chief complaint: OCCULAR MIGRAINE CONFUSION NUMBNESS OF BACK OF HEA Discharge Providers Date of admission: 08/13/18 00:21 Primary care physician: Claudia Covington DO Discharge provider: Jose Potter MD Discharge Date: 08/13/18 Summary Discharge Diagnosis: TIA Hypertension Hyperlipidemia Vertigo Hospital Course: Patient was admitted to the hospital with visual changes and difficulty with speech. There was concern for TIA. Initial workup in emergency department was normal with EKG telemetry and CT of the head. She was evaluated in the hospital with a MRI angiogram stroke protocol the brain carotid ultrasound was ordered but they were not able to do it over the weekend she had an echocardiogram which was normal. During hospital slightly her monitoring specialist was normal there are no signs of irregular heartbeats. Time of discharge was eating ambulating well and neurologically was intact. Exam Vital Signs (past 8 hours): - 08/13/18 12:55 08/13/18 15:44 Temperature 98.8 F 98.8 F Pulse Rate 81 73 Respiratory Rate 18 18 Blood Pressure 119/84 117/79 Pulse Oximetry 97 97 Oxygen Delivery Method Room Air Oxygen Flow Rate 0 Objective Labs Result Diagrams: 08/12/18 23:27 08/12/18 23:27 Labs: Laboratory Results - last 24 hr 08/12/18 08/12/18 08/12/18 23:04 23:15 23:15 WBC RBC Hgb Hct MCV MCH MCHC RDW Plt Count Neut % (Auto) Lymph % (Auto) Kaufman % (Auto) Eos % (Auto) Baso % (Auto) Neut # (Auto) PT 10.8 INR 1.0 APTT 29 Sodium Potassium Chloride Carbon Dioxide BUN Creatinine Estimated GFR BUN/Creatinine Ratio Glucose Calcium Urine RBC 0-1/hpf Urine WBC 0-1/hpf Ur Squamous Epith Cells 0-1 /hpf Urine Bacteria None seen Ur Culture Indicated? Specimen cultured Micro UA Comment Not Reportable Urine Opiates Screen Negative Ur Oxycodone Screen Negative Urine Methadone Screen Negative Ur Barbiturates Screen Negative U Tricyclic Antidepress Negative Ur Phencyclidine Scrn Negative Ur Amphetamines Screen Negative U Methamphetamines Scrn Negative Ur MDMA Scrn (Ecstasy) Negative U Benzodiazepines Scrn Negative Urine Cocaine Screen Negative U Marijuana (THC) Screen Negative 08/12/18 08/12/18 23:27 23:27 WBC 6.6 RBC 4.63 Hgb 13.5 Hct 39.9 MCV 86.1 MCH 29.1 MCHC 33.8 RDW 13.8 Plt Count 231 Neut % (Auto) 48.1 L Lymph % (Auto) 36.9 Kaufman % (Auto) 10.8 Eos % (Auto) 2.2 Baso % (Auto) 2.0 Neut # (Auto) 3200 PT INR APTT Sodium 139 Potassium 3.0 L Chloride 102 Carbon Dioxide 28 BUN 12 Creatinine 0.70 Estimated GFR > 60.0 BUN/Creatinine Ratio 17.1 Glucose 100 Calcium 8.8 Urine RBC Urine WBC Ur Squamous Epith Cells Urine Bacteria Ur Culture Indicated? Micro UA Comment Urine Opiates Screen Ur Oxycodone Screen Urine Methadone Screen Ur Barbiturates Screen U Tricyclic Antidepress Ur Phencyclidine Scrn Ur Amphetamines Screen U Methamphetamines Scrn Ur MDMA Scrn (Ecstasy) U Benzodiazepines Scrn Urine Cocaine Screen U Marijuana (THC) Screen Discharge Plan Discharge Plan Patient Disposition: Home Discharge comment: f/u [address] covington Discharge Med Rec/Prescriptions Prescriptions: New aspirin [Aspirin Low Dose] 81 mg tablet,delayed release (DR/EC) 81 mg PO DAILY Qty: 30 RF: 0 Continue [tumeric] capsule 2 cap/day PO QAM Qty: 0 RF: 0 triamcinolone acetonide 0.1 % cream 1 marie Topical BID Qty: 30 RF: 0 ezetimibe [Zetia] 10 mg tablet 10 mg PO DAILY Qty: 90 RF: 2 cholecalciferol (vitamin D3) 2,000 unit capsule 2,000 unit PO DAILY RF: 0 ezetimibe 10 mg tablet 1 tab PO DAILY RF: 0 levothyroxine [Synthroid] 88 mcg tablet 1 tab PO QAM RF: 0 hydrochlorothiazide 25 mg tablet 1 tab PO QDAY RF: 0 Follow up/Referrals: Claudia Covington DO [Primary Care Provider] - Visit Report/Discharge Packet Visit Report Forms: Congestive Heart Failure, Stroke Signs & Symptoms Discharge Data Primary Care Provider: Claudia Covington Attending Provider: Jose Potter Admit Date/Time: 08/13/18 00:21 Discharges patient from system. Discharge Date/Time: 08/13/18 16:02 Quality VTE Deep Vein Thrombosis/Pulmonary Embolism Present on Admission: No
== END 2018-08-13 16:02 | disposition home or self-care (01) ==
LOC: ED 23:40 → AC 08-13 06:43
PROVIDERS: Admitting Provider Family Medicine; Emergency Provider Emergency Medicine; PCP Family Medicine; Visit Provider Family Medicine
DX: G45.9 Transient cerebral ischemic attack, unspecified (principal); G43.B0 Ophthalmoplegic migraine, not intractable; I10 Essential (primary) hypertension; E78.5 Hyperlipidemia, unspecified; Z87.891 Personal history of nicotine dependence; J45.909 Unspecified asthma, uncomplicated; R42 Dizziness and giddiness; R41.0 Disorientation, unspecified; R20.0 Anesthesia of skin
CPT/HCPCS: 36591; 70450; 70553; 80048; 80305; 81003; 81015; 85025; 85610; 85730; 87086; 93005; 93010; 93306; 99283; 99285; 99291; G0378; J2060

== ENCOUNTER → 2018-09-01 12:35 | Outpatient (CLI) | payer OTHER, SELFPAY ==
[2018-08-13 01:10] VITALS: BMI 33.0
--- NOTE | 2018-09-01 12:37 | DI.US.S_ITS ---
PROCEDURE: US CAROTID DOPPLER BI INDICATIONS: TIA TECHNIQUE: Color and pulse Doppler interrogation was performed of both carotid systems, with image documentation and velocity measurements. COMPARISON: None. FINDINGS: Stenosis calculations are based on SRU (Society of Radiologists in Ultrasound) criteria. Right side: Brachial blood pressure: 124/84 mm Hg. Common carotid artery peak systolic velocity: 88 cm/sec. Internal carotid artery peak systolic velocity: 80 cm/sec. Internal carotid artery end diastolic velocity: 30 cm/sec. External carotid artery peak systolic velocity: 82 cm/sec. ICA/CCA peak systolic ratio: 0.9. Moore scale imaging description: Mild soft plaque Percent internal carotid artery stenosis: Less than 50% stenosis. Vertebral artery: Flow direction is antegrade. Left side: Brachial blood pressure: 125/86 mm Hg. Common carotid artery peak systolic velocity: 105 cm/sec. Internal carotid artery peak systolic velocity: 94 cm/sec. Internal carotid artery end diastolic velocity: 37 cm/sec. External carotid artery peak systolic velocity: 90 cm/sec. ICA/CCA peak systolic ratio: 0.9. Moore scale imaging description: No calcific or soft plaque Percent internal carotid artery stenosis: None seen. Vertebral artery: Flow direction is antegrade. IMPRESSION: Less than 50% stenosis at the proximal internal carotid artery on the right and none seen on the left. Vertebral arterial flow is antegrade in direction. Dictated by: Danny Biggs M.D. on 09/01/2018 at 15:25 Approved by: Danny Biggs M.D. on 09/01/2018 at 15:27
== END ==
PROVIDERS: PCP Family Medicine; Visit Provider Family Medicine
DX: G45.9 Transient cerebral ischemic attack, unspecified (principal); I65.21 Occlusion and stenosis of right carotid artery
CPT/HCPCS: 93880

== ENCOUNTER → 2018-09-29 09:27 | Outpatient (CLI) | payer OTHER, SELFPAY ==
[2018-09-15 10:08] VITALS: BMI 33.0
--- NOTE | 2018-09-29 | DI.MG.S_ITS ---
BILATERAL DIGITAL SCREENING MAMMOGRAM 3D/2D WITH CAD: 09/29/2018 CLINICAL: Routine screening. Comparison is made to exams dated: 09/07/2017 mammogram, 08/27/2014 mammogram, and 08/10/2013 mammogram - [facility]. The tissue of both breasts is heterogeneously dense. This may lower the sensitivity of mammography. Current study was also evaluated with a Computer Aided Detection (CAD) system. No significant masses, calcifications, or other findings are seen in either breast. There has been no significant interval change. IMPRESSION: NEGATIVE There is no mammographic evidence of malignancy. A 1 year screening mammogram is recommended. This exam was interpreted at Station ID: [id number]. NOTE: For mammograms, a report in lay terms will be sent to the patient. Approximately 15% of breast malignancies will not be visualized mammographically. In the management of a palpable breast mass, a negative mammogram must not discourage biopsy of a clinically suspicious lesion. Electronically Signed By: Alexis venegas/rishi:09/29/2018 17:26:40 copy to: Kimi Healy letter sent: Normal Exam ACR BI-RADS Category 1: Negative [id number]
== END ==
PROVIDERS: Family Provider Obstetrics & Gynecology; PCP Family Medicine; Visit Provider Family Medicine
DX: Z12.31 Encounter for screening mammogram for malignant neoplasm of breast (principal)
CPT/HCPCS: 77063; 77067

== ENCOUNTER 2018-11-15 09:59 | Emergency (ER) | payer OTHER, SELFPAY ==
[2018-09-15 10:08] VITALS: BMI 33.0
[2018-11-15 10:00] VITALS: BP 140/94; PULSE 77; RESP 18; TEMP 36.6; O2SAT 98
[2018-11-15 11:35] VITALS: BP 119/73; PULSE 63; RESP 16; O2SAT 98
--- NOTE | 2018-11-15 12:31 | ED.TRAUMA ---
HPI - Trauma <LADONNA Barba - Last Filed: 11/15/18 13:35> General Chief Complaint: Trauma Stated Complaint: hit bottom of chin on log wednesday Time Seen by Provider: 11/15/18 10:29 Source: patient Mode of arrival: ambulatory Limitations: no limitations History of Present Illness HPI narrative: Patient is a 58-year-old female former smoker with history of TIA who presents by herself chief complaint dizziness, fatigue slight confusion since a ground level fall on Wednesday. She states she tripped and hit her head on a log at 11:00 a.m. on Wednesday. She denies loss of consciousness, but states she dizzy vision headaches fatigued throughout the day. Since then her vision is improved. However dizziness, lightheadedness, foggy feeling has not improved since and has worsened. She complains of bruising on her chin. She states she broke her tooth during the fall. She has not followed up with a dentist yet, but has that arranged. She also complains of neck pain. She has not any blood thinners at this point in time. Related Data Home Medications Medication Instructions Recorded Confirmed turmeric 2 cap/day PO QAM #0 08/04/17 11/15/18 cholecalciferol (vitamin D3) 2,000 2,000 unit PO DAILY 07/12/18 11/15/18 unit capsule hydrochlorothiazide 25 mg PO DAILY 08/12/18 11/15/18 levothyroxine [Synthroid] 88 mcg PO QAM 08/12/18 11/15/18 magnesium oxide 400 mg PO DAILY 11/15/18 11/15/18 Previous Rx's Medication Instructions Recorded ezetimibe 10 mg tablet 10 mg PO DAILY #90 tab 04/15/18 aspirin [Aspirin Low Dose] 81 mg PO DAILY #30 tab 08/13/18 Allergies Allergy/AdvReac Type Severity Reaction Status Date / Time amoxicillin [AMOXICILLIN] Allergy Severe HIVES, Verified 09/26/18 15:05 ANGIOEDEMA clavulanic acid Allergy Severe HIVES, Verified 09/26/18 15:05 [CLAVULANIC ACID] ANGIOEDEMA Penicillins [PENICILLINS] Allergy Unknown Verified 09/26/18 15:05 Review of Systems <LADONNA Barba - Last Filed: 11/15/18 13:35> Review of Systems GENERAL: Denies chills, fatigue, malaise, fever, sweats. HEENT: Denies sinus pain, ear pain, sore throat, difficulty swallowing, dizziness. RESPIRATORY: Denies dyspnea, cough, wheezing, hemoptysis, sputum. CARDIOVASCULAR: Denies chest pain, palpitations, orthopnea, edema, GASTROINTESTINAL: Denies nausea, vomiting, abdominal pain, diarrhea, constipation, melena. : Denies dysuria, frequency, incontinence, hematuria, urinary retention. MUSCULOSKELETAL: See HPI SKIN: See HPI NEUROLOGIC: See HPI PSYCHIATRIC: No concerning psychosocial issues. 12 point review of systems is negative except for those stated above Exam <Griselda Geiger, FRAUD INVESTIGATOR-BC - Last Filed: 11/15/18 13:35> Narrative Exam Narrative: GENERAL: This is a well-nourished, well-developed patient, knee sitting on stretcher HEAD: Atraumatic. Normocephalic. No temporal or scalp tenderness. No pain to palpation of the face other than chin. Observed broken rear molar right lower EYES: Pupils equal round and reactive. Extraocular motions intact. No scleral icterus. No injection or drainage. ENT: Nose without bleeding, purulent drainage or septal hematoma. Throat without erythema, tonsillar hypertrophy or exudate. Uvula midline. Airway patent. NECK: Trachea midline. No JVD or lymphadenopathy. Supple, nontender, no meningeal signs. CARDIOVASCULAR: Regular rate and rhythm without murmurs, gallops, or rubs. RESPIRATORY: Clear to auscultation. Breath sounds equal bilaterally. No wheezes, rales, or rhonchi. GASTROINTESTINAL: Abdomen soft, non-tender, nondistended. No hepato-splenomegaly, or palpable masses. No guarding. EXTREMITIES: No clubbing, cyanosis, or edema. No joint tenderness, effusion, or edema noted. BACK: Pain to palpation midline C-spine. Pain to palpation left paraspinal muscles thoracic area. NEURO: AOx3. Strength is equal upper and lower extremities bilaterally. SKIN: 4 x 6cm area of ecchymosis noted on chin. No laceration or abrasion noted. Skin is intact. Initial Vital Signs Initial Vital Signs: Vital Signs Temperature 97.9 F 11/15/18 10:00 Pulse Rate 77 11/15/18 10:00 Respiratory Rate 18 11/15/18 10:00 Blood Pressure 140/94 H 11/15/18 10:00 Pulse Oximetry 98 11/15/18 10:00 <Alicia Mathur DO - Last Filed: 11/16/18 09:41> Initial Vital Signs Initial Vital Signs: Vital Signs Temperature 97.9 F 11/15/18 10:00 Pulse Rate 77 11/15/18 10:00 Respiratory Rate 18 11/15/18 10:00 Blood Pressure 140/94 H 11/15/18 10:00 Pulse Oximetry 98 11/15/18 10:00 Course <LADONNA Barba - Last Filed: 11/15/18 13:35> Orders Ordered: ED Orders 11/15/18 12:56 CT cervical spine wo con Stat CT facial bones wo con Stat CT head/brain wo con Stat Vital Signs - 8 hr 11/15/18 10:00 11/15/18 11:35 11/15/18 13:30 Temperature 97.9 F Pulse Rate 77 63 67 Respiratory Rate 18 16 18 Blood Pressure 140/94 H 124/76 Blood Pressure [Left Arm] 119/73 Pulse Oximetry 98 98 97 <Alicia Mathur DO - Last Filed: 11/16/18 09:41> Orders Ordered: ED Orders 11/15/18 12:56 CT cervical spine wo con Stat CT facial bones wo con Stat CT head/brain wo con Stat Vital Signs - 8 hr 11/15/18 10:00 11/15/18 11:35 11/15/18 13:30 Temperature 97.9 F Pulse Rate 77 63 67 Respiratory Rate 18 16 18 Blood Pressure 140/94 H 124/76 Blood Pressure [Left Arm] 119/73 Pulse Oximetry 98 98 97 MDM - Trauma <LADONNA Barba - Last Filed: 11/15/18 13:35> Imaging Data CT C spine: Radiologist's impression: [address] [address] [address] Scan Report Signed Patient: Ewa Heaton LMR#: [id number] : 1Acct:[id number] Age/Sex: 58 / FDate of Service: 11/15/18 Loc: ED Accession Number: [id number] Procedure: CT cervical spine wo con Ordering Provider: Griselda Geiger PROCEDURE: CT CERVICAL SPINE WO CON INDICATIONS: glf TECHNIQUE: Noncontrast 3 mm thick sections acquired from the skull base to the T4 level. Sagittal and coronal reformats were then constructed. For radiation dose reduction, the following was used: automated exposure control, adjustment of mA and/or kV according to patient size. COMPARISON: [facility], CT, CT FACIAL BONES WO CON, 11/15/2018, 12:25. FINDINGS: Image quality: Excellent. Bones: No fractures or dislocations. There is loss of normal cervical lordosis with kyphotic cervical curvature. There is grade 1 anterolisthesis of C3 on C4. Degenerative disc disease is present, moderate at C5-C6, and mild at C4-C5 and C6-7. There is bilateral facet arthropathy, most pronounced and severe at C2-C3 on the left. Visualized superior ribs are intact. Soft tissues: Prevertebral soft tissues are normal in thickness. No paravertebral hematomas. No apical pneumothoraces. IMPRESSION: 1. No fractures. 2. Degenerative disc and facet disease in cervical spine. Dictated by: Presley Ortega M.D. on 11/15/2018 at 12:59 Approved by: Presley Ortega M.D. on 11/15/2018 at 13:04 CT face: Radiologist's impression: [facility] DATE TYPE STATUS AUTHOR Hx 11/15/18 12:56 Ewelina Ortega 11/15/18 12:56 Ewelina Ortega 11/15/18 12:56 Ewelina Ortega 09/29/18 00:00 Alexis Ozuna 09/01/18 12:37 Danny Biggs 08/13/18 01:24 Shasta Negron 08/13/18 01:24 Danny Biggs 08/13/18 00:21 08/12/18 22:52 Danny Biggs 03/17/18 08:26 SudarshanEwa Daniela 58, 1960 [facility] ER, ED - Main ED: R07 99.337kg Trauma Search Chart amoxicillin (AMOXICILLIN) HIVES, ANGIOEDEMA clavulanic acid (CLAVULANIC ACID) HIVES, ANGIOEDEMA Penicillins (PENICILLINS) ONSET 01/12/18 01/14/18 01/14/18 01/14/18 Today 11:[address] [address] [address] Scan Report Signed Patient: Ewa Heaton LMR#: [id number] : [id number]:[id number] Age/Sex: 58 / FDate of Service: 11/15/18 Loc: ED Accession Number: [id number] Procedure: CT facial bones wo con Ordering Provider: Griselda GeigerP-MARVIN PROCEDURE: CT FACIAL BONES WO CON INDICATIONS: glf, chin injury TECHNIQUE: Noncontrast 2.5 mm thick axial images acquired from the mandible through the frontal sinuses, with coronal and sagittal reformatting. For radiation dose reduction, the following was used: automated exposure control, adjustment of mA and/or kV according to patient size. COMPARISON: None. FINDINGS: Image quality: Excellent. Bones and teeth: Orbital domingo are intact. Sinus domingo show no fracture or deformity. Nasal bones and septum are intact. Visualized portions of the mandible demonstrate no fractures or subluxation. Zygomatic arches are intact. Pterygoid plates are intact. Visualized portions of the skull base and auditory canals are intact. Sinuses: Paranasal sinuses are aerated, without fluid levels, mucosal thickening, or mucoceles. Mastoid air cells are aerated. Soft tissues: No edema, masses, or fluid collections. No enlarged lymph nodes. No soft tissue lacerations or debris. Vascular: Visualized vascular structures appear normal in the absence of contrast. Bony vascular foramina and canals are intact. IMPRESSION: No facial bone fractures. Dictated by: Presley Ortega M.D. on 11/15/2018 at 13:04 Approved by: Presley Ortega M.D. on 11/15/2018 at 13:07 CT head: Radiologist's impression: [address] [address] [address] Scan Report Signed Patient: Ewa Heaton LMR#: [id number] : [id number]:[id number] Age/Sex: 58 / FDate of Service: 11/15/18 Loc: ED Accession Number: [id number] Procedure: CT head/brain wo con Ordering Provider: Griselda Geiger PROCEDURE: CT HEAD/BRAIN WO CON INDICATIONS: glf, dizzy, nausea TECHNIQUE: Noncontrast 4.5 mm thick angled axial sections acquired from the foramen magnum to the vertex, with coronal and sagittal reformats. For radiation dose reduction, the following was used: automated exposure control, adjustment of mA and/or kV according to patient size. COMPARISON: [facility], MR, MR STROKE, 08/13/2018, 11:15. [facility], CT, CT HEAD/BRAIN WO CON, 08/12/2018, 22:51. FINDINGS: Image quality: Excellent. CSF spaces: Basal cisterns are patent. No extra-axial fluid collections. The ventricles are symmetric in size and shape. Brain: No intracranial bleeds or masses. There is mild cerebral volume loss for age, with resultant ventricular and sulcal prominence. There are mild periventricular and deep white matter chronic small vessel ischemic changes. There is intracranial internal carotid artery atherosclerosis. Skull and face: Calvarium and visualized facial bones appear intact, without suspicious lesions. Sinuses: Visualized sinuses and mastoids are clear. IMPRESSION: 1. No acute intracranial abnormalities. Dictated by: Presley Ortega M.D. on 11/15/2018 at 12:57 Approved by: Presley Ortega M.D. on 11/15/2018 at 12:59 MDM Narrative Medical decision making narrative: Patient is a 58 yr old female who presents after a ground level fall and hitting her chin on a log. Exam indicates a contusion. She had a negative head CT, face CT and C-spine CT. Given her symptoms, I believe she does have a concussion at this point time. I discussed at length return precautions to the emergency department clinic confusion, syncope, acute concerns. I discussed at length follow up with her primary care provider given her concussion. I discussed [id number] medications as needed as well as rest, ice or heat. Her exam does indicate muscle strain and spasm of her neck. I offered her muscle relaxer, but she declined a prescription at this point time. I discussed at length return precautions the emergency department as well as follow-up care. She had no questions or concerns upon discharge. Discharge Plan Departure Patient Disposition: Home Clinical Impression: Concussion, Contusion, Muscle spasm Discharge Date/Time: 11/15/18 13:30 Interventions: ED Discharge Assessment Last Done: 11/15/18 13:30 Instructions: DI for Concussion, DI for Contusion, DI for Muscle Spasm Activity Restrictions/Additional Instructions: Your head CT, neck CT and facial CT came back with no acute etiologies such as fractures or bleeding. Please follow-up with her primary care provider in a few days for recheck. Please come back to emergency department for any acute concerns such as sudden onset of a confusion, seizures, any acute concerns. Please use brain rest to help heal from her concussion. Please use [id number] medications as well as ice and/or heat for your muscle strain and your contusion. Please come back to the emergency department for any acute concerns. Prescriptions: No Action turmeric 400 mg Capsule 2 cap/day PO QAM Qty: 0 RF: 0 ezetimibe [Zetia] 10 mg tablet 10 mg PO DAILY Qty: 90 RF: 2 cholecalciferol (vitamin D3) 2,000 unit capsule 2,000 unit PO DAILY RF: 0 levothyroxine [Synthroid] 88 mcg tablet 88 mcg PO QAM RF: 0 hydrochlorothiazide 25 mg tablet 25 mg PO DAILY RF: 0 aspirin [Aspirin Low Dose] 81 mg tablet,delayed release (DR/EC) 81 mg PO DAILY Qty: 30 RF: 0 magnesium oxide 400 mg magnesium Tablet 400 mg PO DAILY RF: 0 Referrals: Claudia Miguel DO [Primary Care Provider] - <Alicia Mathur DO - Last Filed: 11/16/18 09:41> Cosign ED Attending Frankature Attestation: I was immediately available in the department for consultation. Documentation has been reviewed. I agree with assessment and plan.
--- NOTE | 2018-11-15 12:36 | ED_ITS ---
HPI - Trauma <LADONNA Barba - Last Filed: 11/15/18 13:35> General Chief Complaint: Trauma Stated Complaint: hit bottom of chin on log wednesday Time Seen by Provider: 11/15/18 10:29 Source: patient Mode of arrival: ambulatory Limitations: no limitations History of Present Illness HPI narrative: Patient is a 58-year-old female former smoker with history of TIA who presents by herself chief complaint dizziness, fatigue slight confusion since a ground level fall on Wednesday. She states she tripped and hit her head on a log at 11:00 a.m. on Wednesday. She denies loss of consciousness, but states she dizzy vision headaches fatigued throughout the day. Since then her vision is improved. However dizziness, lightheadedness, foggy feeling has not improved since and has worsened. She complains of bruising on her chin. She states she broke her tooth during the fall. She has not followed up with a dentist yet, but has that arranged. She also complains of neck pain. She has not any blood thinners at this point in time. Related Data Home Medications Medication Instructions Recorded Confirmed turmeric 2 cap/day PO QAM #0 08/04/17 11/15/18 cholecalciferol (vitamin D3) 2,000 2,000 unit PO DAILY 07/12/18 11/15/18 unit capsule hydrochlorothiazide 25 mg PO DAILY 08/12/18 11/15/18 levothyroxine [Synthroid] 88 mcg PO QAM 08/12/18 11/15/18 magnesium oxide 400 mg PO DAILY 11/15/18 11/15/18 Previous Rx's Medication Instructions Recorded ezetimibe 10 mg tablet 10 mg PO DAILY #90 tab 04/15/18 aspirin [Aspirin Low Dose] 81 mg PO DAILY #30 tab 08/13/18 Allergies Allergy/AdvReac Type Severity Reaction Status Date / Time amoxicillin [AMOXICILLIN] Allergy Severe HIVES, Verified 09/26/18 15:05 ANGIOEDEMA clavulanic acid Allergy Severe HIVES, Verified 09/26/18 15:05 [CLAVULANIC ACID] ANGIOEDEMA Penicillins [PENICILLINS] Allergy Unknown Verified 09/26/18 15:05 Review of Systems <LADONNA Barba - Last Filed: 11/15/18 13:35> Review of Systems GENERAL: Denies chills, fatigue, malaise, fever, sweats. HEENT: Denies sinus pain, ear pain, sore throat, difficulty swallowing, dizziness. RESPIRATORY: Denies dyspnea, cough, wheezing, hemoptysis, sputum. CARDIOVASCULAR: Denies chest pain, palpitations, orthopnea, edema, GASTROINTESTINAL: Denies nausea, vomiting, abdominal pain, diarrhea, constipation, melena. : Denies dysuria, frequency, incontinence, hematuria, urinary retention. MUSCULOSKELETAL: See HPI SKIN: See HPI NEUROLOGIC: See HPI PSYCHIATRIC: No concerning psychosocial issues. 12 point review of systems is negative except for those stated above Exam <Griselda Geiger, UPPER EXTREMITY SURGEON-BC - Last Filed: 11/15/18 13:35> Narrative Exam Narrative: GENERAL: This is a well-nourished, well-developed patient, knee sitting on stretcher HEAD: Atraumatic. Normocephalic. No temporal or scalp tenderness. No pain to palpation of the face other than chin. Observed broken rear molar right lower EYES: Pupils equal round and reactive. Extraocular motions intact. No scleral icterus. No injection or drainage. ENT: Nose without bleeding, purulent drainage or septal hematoma. Throat without erythema, tonsillar hypertrophy or exudate. Uvula midline. Airway patent. NECK: Trachea midline. No JVD or lymphadenopathy. Supple, nontender, no meningeal signs. CARDIOVASCULAR: Regular rate and rhythm without murmurs, gallops, or rubs. RESPIRATORY: Clear to auscultation. Breath sounds equal bilaterally. No wheezes , rales, or rhonchi. GASTROINTESTINAL: Abdomen soft, non-tender, nondistended. No hepato-splenomegaly , or palpable masses. No guarding. EXTREMITIES: No clubbing, cyanosis, or edema. No joint tenderness, effusion, or edema noted. BACK: Pain to palpation midline C-spine. Pain to palpation left paraspinal muscles thoracic area. NEURO: AOx3. Strength is equal upper and lower extremities bilaterally. SKIN: 4 x 6cm area of ecchymosis noted on chin. No laceration or abrasion noted. Skin is intact. Initial Vital Signs Initial Vital Signs: Vital Signs Temperature 97.9 F 11/15/18 10:00 Pulse Rate 77 11/15/18 10:00 Respiratory Rate 18 11/15/18 10:00 Blood Pressure 140/94 H 11/15/18 10:00 Pulse Oximetry 98 11/15/18 10:00 <Alicia Mathur DO - Last Filed: 11/16/18 09:41> Initial Vital Signs Initial Vital Signs: Vital Signs Temperature 97.9 F 11/15/18 10:00 Pulse Rate 77 11/15/18 10:00 Respiratory Rate 18 11/15/18 10:00 Blood Pressure 140/94 H 11/15/18 10:00 Pulse Oximetry 98 11/15/18 10:00 Course <LADONNA Barba - Last Filed: 11/15/18 13:35> Orders Ordered: ED Orders 11/15/18 12:56 CT cervical spine wo con Stat CT facial bones wo con Stat CT head/brain wo con Stat Vital Signs - 8 hr 11/15/18 10:00 11/15/18 11:35 11/15/18 13:30 Temperature 97.9 F Pulse Rate 77 63 67 Respiratory Rate 18 16 18 Blood Pressure 140/94 H 124/76 Blood Pressure [Left Arm] 119/73 Pulse Oximetry 98 98 97 <Alicia Mathur DO - Last Filed: 11/16/18 09:41> Orders Ordered: ED Orders 11/15/18 12:56 CT cervical spine wo con Stat CT facial bones wo con Stat CT head/brain wo con Stat Vital Signs - 8 hr 11/15/18 10:00 11/15/18 11:35 11/15/18 13:30 Temperature 97.9 F Pulse Rate 77 63 67 Respiratory Rate 18 16 18 Blood Pressure 140/94 H 124/76 Blood Pressure [Left Arm] 119/73 Pulse Oximetry 98 98 97 MDM - Trauma <LADONNA Barba - Last Filed: 11/15/18 13:35> Imaging Data CT C spine: Radiologist's impression: [address] [address] [address] Scan Report Signed Patient: Ewa Heaton LMR#: [id number] : 1Acct:[id number] Age/Sex: 58 / FDate of Service: 11/15/18 Loc: ED Accession Number: [id number] Procedure: CT cervical spine wo con Ordering Provider: Griselda Geiger PROCEDURE: CT CERVICAL SPINE WO CON INDICATIONS: glf TECHNIQUE: Noncontrast 3 mm thick sections acquired from the skull base to the T4 level. Sagittal and coronal reformats were then constructed. For radiation dose reduction, the following was used: automated exposure control, adjustment of mA and/or kV according to patient size. COMPARISON: [facility], CT, CT FACIAL BONES WO CON, 11/15/2018, 12:25. FINDINGS: Image quality: Excellent. Bones: No fractures or dislocations. There is loss of normal cervical lordosis with kyphotic cervical curvature. There is grade 1 anterolisthesis of C3 on C4. Degenerative disc disease is present, moderate at C5-C6, and mild at C4-C5 and C6-7. There is bilateral facet arthropathy, most pronounced and severe at C2-C3 on the left. Visualized superior ribs are intact. Soft tissues: Prevertebral soft tissues are normal in thickness. No paravertebral hematomas. No apical pneumothoraces. IMPRESSION: 1. No fractures. 2. Degenerative disc and facet disease in cervical spine. Dictated by: Presley Ortega M.D. on 11/15/2018 at 12:59 Approved by: Presley Ortega M.D. on 11/15/2018 at 13:04 CT face: Radiologist's impression: [facility] DATE TYPE STATUS AUTHOR Hx 11/15/18 12:56 Ewelina Ortega 11/15/18 12:56 Ewelina Ortega 11/15/18 12:56 Ewelina Ortega 09/29/18 00:00 Alexis Ozuna 09/01/18 12:37 Danny Biggs 08/13/18 01:24 Shasta Negron 08/13/18 01:24 Danny Biggs 08/13/18 00:21 08/12/18 22:52 Danny Biggs 03/17/18 08:26 SudarshanEwa Daniela 58, 1960 [facility] ER, ED - Main ED: R07 99.337kg Trauma Search Chart amoxicillin (AMOXICILLIN) HIVES, ANGIOEDEMA clavulanic acid (CLAVULANIC ACID) HIVES, ANGIOEDEMA Penicillins (PENICILLINS) ONSET 01/12/18 01/14/18 01/14/18 01/14/18 Today 11:[address] [address] [address] Scan Report Signed Patient: Ewa Heaton LMR#: [id number] : [id number]:[id number] Age/Sex: 58 / FDate of Service: 11/15/18 Loc: ED Accession Number: [id number] Procedure: CT facial bones wo con Ordering Provider: Griselda GeigerP-MARVIN PROCEDURE: CT FACIAL BONES WO CON INDICATIONS: glf, chin injury TECHNIQUE: Noncontrast 2.5 mm thick axial images acquired from the mandible through the frontal sinuses, with coronal and sagittal reformatting. For radiation dose reduction, the following was used: automated exposure control, adjustment of mA and/or kV according to patient size. COMPARISON: None. FINDINGS: Image quality: Excellent. Bones and teeth: Orbital domingo are intact. Sinus domingo show no fracture or deformity. Nasal bones and septum are intact. Visualized portions of the mandible demonstrate no fractures or subluxation. Zygomatic arches are intact. Pterygoid plates are intact. Visualized portions of the skull base and auditory canals are intact. Sinuses: Paranasal sinuses are aerated, without fluid levels, mucosal thickening, or mucoceles. Mastoid air cells are aerated. Soft tissues: No edema, masses, or fluid collections. No enlarged lymph nodes. No soft tissue lacerations or debris. Vascular: Visualized vascular structures appear normal in the absence of contrast. Bony vascular foramina and canals are intact. IMPRESSION: No facial bone fractures. Dictated by: Presley Ortega M.D. on 11/15/2018 at 13:04 Approved by: Presley Ortega M.D. on 11/15/2018 at 13:07 CT head: Radiologist's impression: [address] [address] [address] Scan Report Signed Patient: Ewa Heaton LMR#: [id number] : [id number]:[id number] Age/Sex: 58 / FDate of Service: 11/15/18 Loc: ED Accession Number: [id number] Procedure: CT head/brain wo con Ordering Provider: Griselda Geiger PROCEDURE: CT HEAD/BRAIN WO CON INDICATIONS: glf, dizzy, nausea TECHNIQUE: Noncontrast 4.5 mm thick angled axial sections acquired from the foramen magnum to the vertex, with coronal and sagittal reformats. For radiation dose reduction, the following was used: automated exposure control, adjustment of mA and/or kV according to patient size. COMPARISON: [facility], MR, MR STROKE, 08/13/2018, 11:15. [facility] , CT, CT HEAD/BRAIN WO CON, 08/12/2018, 22:51. FINDINGS: Image quality: Excellent. CSF spaces: Basal cisterns are patent. No extra-axial fluid collections. The ventricles are symmetric in size and shape. Brain: No intracranial bleeds or masses. There is mild cerebral volume loss for age, with resultant ventricular and sulcal prominence. There are mild periventricular and deep white matter chronic small vessel ischemic changes. There is intracranial internal carotid artery atherosclerosis. Skull and face: Calvarium and visualized facial bones appear intact, without suspicious lesions. Sinuses: Visualized sinuses and mastoids are clear. IMPRESSION: 1. No acute intracranial abnormalities. Dictated by: Presley Ortega M.D. on 11/15/2018 at 12:57 Approved by: Presley Ortega M.D. on 11/15/2018 at 12:59 MDM Narrative Medical decision making narrative: Patient is a 58 yr old female who presents after a ground level fall and hitting her chin on a log. Exam indicates a contusion. She had a negative head CT, face CT and C-spine CT. Given her symptoms, I believe she does have a concussion at this point time. I discussed at length return precautions to the emergency department clinic confusion, syncope, acute concerns. I discussed at length follow up with her primary care provider given her concussion. I discussed [id number] medications as needed as well as rest, ice or heat. Her exam does indicate muscle strain and spasm of her neck. I offered her muscle relaxer, but she declined a prescription at this point time. I discussed at length return precautions the emergency department as well as follow-up care. She had no questions or concerns upon discharge. Discharge Plan Departure Patient Disposition: Home Clinical Impression: Concussion, Contusion, Muscle spasm Discharge Date/Time: 11/15/18 13:30 Interventions: ED Discharge Assessment Last Done: 11/15/18 13:30 Instructions: DI for Concussion, DI for Contusion, DI for Muscle Spasm Activity Restrictions/Additional Instructions: Your head CT, neck CT and facial CT came back with no acute etiologies such as fractures or bleeding. Please follow-up with her primary care provider in a few days for recheck. Please come back to emergency department for any acute concerns such as sudden onset of a confusion, seizures, any acute concerns. Please use brain rest to help heal from her concussion. Please use over-the- counter medications as well as ice and/or heat for your muscle strain and your contusion. Please come back to the emergency department for any acute concerns. Prescriptions: No Action turmeric 400 mg Capsule 2 cap/day PO QAM Qty: 0 RF: 0 ezetimibe [Zetia] 10 mg tablet 10 mg PO DAILY Qty: 90 RF: 2 cholecalciferol (vitamin D3) 2,000 unit capsule 2,000 unit PO DAILY RF: 0 levothyroxine [Synthroid] 88 mcg tablet 88 mcg PO QAM RF: 0 hydrochlorothiazide 25 mg tablet 25 mg PO DAILY RF: 0 aspirin [Aspirin Low Dose] 81 mg tablet,delayed release (DR/EC) 81 mg PO DAILY Qty: 30 RF: 0 magnesium oxide 400 mg magnesium Tablet 400 mg PO DAILY RF: 0 Referrals: Claudia Miguel DO [Primary Care Provider] - <Alicia Mathur DO - Last Filed: 11/16/18 09:41> Cosign ED Attending Frankature Attestation: I was immediately available in the department for consultation. Documentation has been reviewed. I agree with assessment and plan.
--- NOTE | 2018-11-15 12:56 | DI.CT.S_ITS ---
PROCEDURE: CT HEAD/BRAIN WO CON INDICATIONS: glf, dizzy, nausea TECHNIQUE: Noncontrast 4.5 mm thick angled axial sections acquired from the foramen magnum to the vertex, with coronal and sagittal reformats. For radiation dose reduction, the following was used: automated exposure control, adjustment of mA and/or kV according to patient size. COMPARISON: [facility], MR, MR STROKE, 08/13/2018, 11:15. [facility], CT, CT HEAD/BRAIN WO CON, 08/12/2018, 22:51. FINDINGS: Image quality: Excellent. CSF spaces: Basal cisterns are patent. No extra-axial fluid collections. The ventricles are symmetric in size and shape. Brain: No intracranial bleeds or masses. There is mild cerebral volume loss for age, with resultant ventricular and sulcal prominence. There are mild periventricular and deep white matter chronic small vessel ischemic changes. There is intracranial internal carotid artery atherosclerosis. Skull and face: Calvarium and visualized facial bones appear intact, without suspicious lesions. Sinuses: Visualized sinuses and mastoids are clear. IMPRESSION: 1. No acute intracranial abnormalities. Dictated by: Presley Ortega M.D. on 11/15/2018 at 12:57 Approved by: Presley Ortega M.D. on 11/15/2018 at 12:59
--- NOTE | 2018-11-15 12:56 | DI.CT.S_ITS ---
PROCEDURE: CT CERVICAL SPINE WO CON INDICATIONS: glf TECHNIQUE: Noncontrast 3 mm thick sections acquired from the skull base to the T4 level. Sagittal and coronal reformats were then constructed. For radiation dose reduction, the following was used: automated exposure control, adjustment of mA and/or kV according to patient size. COMPARISON: [facility], CT, CT FACIAL BONES WO CON, 11/15/2018, 12:25. FINDINGS: Image quality: Excellent. Bones: No fractures or dislocations. There is loss of normal cervical lordosis with kyphotic cervical curvature. There is grade 1 anterolisthesis of C3 on C4. Degenerative disc disease is present, moderate at C5-C6, and mild at C4-C5 and C6-7. There is bilateral facet arthropathy, most pronounced and severe at C2-C3 on the left. Visualized superior ribs are intact. Soft tissues: Prevertebral soft tissues are normal in thickness. No paravertebral hematomas. No apical pneumothoraces. IMPRESSION: 1. No fractures. 2. Degenerative disc and facet disease in cervical spine. Dictated by: Presley Ortega M.D. on 11/15/2018 at 12:59 Approved by: Presley Ortega M.D. on 11/15/2018 at 13:04
--- NOTE | 2018-11-15 12:56 | DI.CT.S_ITS ---
PROCEDURE: CT FACIAL BONES WO CON INDICATIONS: glf, chin injury TECHNIQUE: Noncontrast 2.5 mm thick axial images acquired from the mandible through the frontal sinuses, with coronal and sagittal reformatting. For radiation dose reduction, the following was used: automated exposure control, adjustment of mA and/or kV according to patient size. COMPARISON: None. FINDINGS: Image quality: Excellent. Bones and teeth: Orbital domingo are intact. Sinus domingo show no fracture or deformity. Nasal bones and septum are intact. Visualized portions of the mandible demonstrate no fractures or subluxation. Zygomatic arches are intact. Pterygoid plates are intact. Visualized portions of the skull base and auditory canals are intact. Sinuses: Paranasal sinuses are aerated, without fluid levels, mucosal thickening, or mucoceles. Mastoid air cells are aerated. Soft tissues: No edema, masses, or fluid collections. No enlarged lymph nodes. No soft tissue lacerations or debris. Vascular: Visualized vascular structures appear normal in the absence of contrast. Bony vascular foramina and canals are intact. IMPRESSION: No facial bone fractures. Dictated by: Presley Ortega M.D. on 11/15/2018 at 13:04 Approved by: Presley Ortega M.D. on 11/15/2018 at 13:07
[2018-11-15 13:30] VITALS: BP 124/76; PULSE 67; RESP 18; O2SAT 97
== END 2018-11-15 13:30 | disposition home or self-care (01) ==
PROVIDERS: Emergency Provider Nurse Practitioner Family; Family Provider Obstetrics & Gynecology; PCP Family Medicine
DX: S06.0X9A Concussion with loss of consciousness of unspecified duration, initial encounter (principal); W01.0XXA Fall on same level from slipping, tripping and stumbling without subsequent striking against object, initial encounter
CPT/HCPCS: 70450; 70486; 72125; 99282; 99284

== ENCOUNTER → 2019-06-02 12:45 | Outpatient (CLI) | payer OTHER, SELFPAY ==
[2018-09-15 10:08] VITALS: BMI 33.0
== END ==
PROVIDERS: Family Provider Obstetrics & Gynecology; PCP Family Medicine; Visit Provider Family Medicine
DX: K13.0 Diseases of lips (principal)
CPT/HCPCS: 87252

== ENCOUNTER → 2019-10-05 17:42 | Outpatient (CLI) | payer OTHER, SELFPAY ==
[2018-09-15 10:08] VITALS: BMI 33.0
--- NOTE | 2019-10-05 17:44 | DI.MG.S_ITS ---
BILATERAL DIGITAL SCREENING MAMMOGRAM 3D/2D WITH CAD: 10/05/2019 CLINICAL: Routine screening. Comparison is made to exams dated: 09/29/2018 mammogram, 09/07/2017 mammogram, and 08/27/2014 mammogram - [facility]. The tissue of both breasts is heterogeneously dense. This may lower the sensitivity of mammography. Current study was also evaluated with a Computer Aided Detection (CAD) system. No significant masses, calcifications, or other findings are seen in either breast. There has been no significant interval change. IMPRESSION: NEGATIVE There is no mammographic evidence of malignancy. A 1 year screening mammogram is recommended. This exam was interpreted at Station ID: [id number]. NOTE: For mammograms, a report in lay terms will be sent to the patient. Approximately 15% of breast malignancies will not be visualized mammographically. In the management of a palpable breast mass, a negative mammogram must not discourage biopsy of a clinically suspicious lesion. Electronically Signed By: Kim oneill/rishi:10/06/2019 08:14:00 copy to: Kimi Healy letter sent: Normal Exam ACR BI-RADS Category 1: Negative [id number]
== END ==
PROVIDERS: Family Provider Obstetrics & Gynecology; PCP Family Medicine; Visit Provider Family Medicine
DX: Z12.31 Encounter for screening mammogram for malignant neoplasm of breast (principal)
CPT/HCPCS: 77063; 77067

== ENCOUNTER → 2020-02-01 08:00 | Outpatient (CLI) | payer OTHER, SELFPAY ==
[2018-09-15 10:08] VITALS: BMI 33.0
[2020-02-01 10:11] LABS: Add Manual Diff / Slide Review NO; Alanine Aminotransferase 16 IU/L (<35); Albumin 4.7 g/dL (3.5-5.0); Albumin Globulin Ratio 1.4 (1.0-2.8); Alkaline Phosphatase 45 U/L (38-126); Aspartate Aminotransferase 25 IU/L (14-36); BUN Creatinine Ratio 21.1 (6-22); Basophils Absolute Auto 100 /uL (0-100); Basophils Percent Auto 1.4 % (0-2); Bilirubin Total 0.8 mg/dL (0.2-1.3); Blood Urea Nitrogen 15 mg/dL (7-17); Calcium 9.6 mg/dL (8.4-10.2); Carbon Dioxide 30 mmol/L (22-32); Chloride 102 mmol/L (98-107); Cholesterol 312 mg/dL (140-199); Eosinophils Absolute Auto 100 /uL (0-450); Eosinophils Percent Auto 2.1 % (2-4); Estimated Glomerular Filt Rate > 60.0 mL/min (>60); Globulin 3.3 g/dL (1.7-4.1); Glucose 105 mg/dL (70-100); HDL Cholesterol 45 mg/dL (40-60); HEMOLYSIS < 15 (0-50); Hematocrit 40.6 % (36-46); Hemoglobin 13.6 g/dL (12.0-16.0); LDL Cholesterol Calculated 226 mg/dL (<100); Lymphocytes Absolute Auto 1400 /uL (1100-4500); Lymphocytes Percent Auto 34.4 % (25-40); Mean Corpuscular HGB Conc 33.5 % (30-36); Mean Corpuscular Hemoglobin 29.1 PG (26-34); Mean Corpuscular Volume 87.1 fL (80-100); Monocytes Absolute Auto 500 /uL (0-900); Monocytes Percent Auto 11.2 % (3-14); Neutrophils Absolute Auto 2000 /uL (1500-7000); Neutrophils Percent Auto 50.9 % (50-75); Platelet Count 227 X10^3/uL (150-400); Potassium 3.7 mmol/L (3.4-5.1); Red Blood Cell Count 4.66 X10^6/uL (4.0-5.2); Red Cell Distribution Width 14.5 % (11.6-14.8); Sodium 138 mmol/L (137-145); Triglycerides 203 mg/dL (35-150)
[2020-02-01 11:49] LABS: Vitamin D 25 Hydroxy (D3) 49.6 ng/mL (30.0-100.0)
== END ==
PROVIDERS: Family Provider Obstetrics & Gynecology; PCP Family Medicine; Referring Provider Family Medicine; Visit Provider Family Medicine
DX: E03.9 Hypothyroidism, unspecified (principal); E66.9 Obesity, unspecified; E78.2 Mixed hyperlipidemia; I10 Essential (primary) hypertension; R79.89 Other specified abnormal findings of blood chemistry
CPT/HCPCS: 36415; 80053; 80061; 82306; 84443; 85025

== ENCOUNTER → 2020-02-26 09:23 | Outpatient (CLI) | payer OTHER, SELFPAY ==
[2018-09-15 10:08] VITALS: BMI 33.0
[2020-02-26 10:19] LABS: Add Manual Diff / Slide Review NO; Basophils Absolute Auto 100 /uL (0-100); Basophils Percent Auto 1.4 % (0-2); Eosinophils Absolute Auto 200 /uL (0-450); Eosinophils Percent Auto 2.8 % (2-4); Hematocrit 41.1 % (36-46); Hemoglobin 13.9 g/dL (12.0-16.0); Lymphocytes Absolute Auto 1900 /uL (1100-4500); Lymphocytes Percent Auto 32.9 % (25-40); Mean Corpuscular HGB Conc 33.8 % (30-36); Mean Corpuscular Hemoglobin 29.2 PG (26-34); Mean Corpuscular Volume 86.4 fL (80-100); Monocytes Absolute Auto 600 /uL (0-900); Monocytes Percent Auto 10.7 % (3-14); Neutrophils Absolute Auto 3100 /uL (1500-7000); Neutrophils Percent Auto 52.2 % (50-75); Platelet Count 250 X10^3/uL (150-400); Red Blood Cell Count 4.76 X10^6/uL (4.0-5.2); Red Cell Distribution Width 14.3 % (11.6-14.8); White Blood Cell Count 5.9 X10^3/uL (4.5-11.0)
[2020-02-26 10:35] LABS: Alanine Aminotransferase 18 IU/L (<35); Albumin 4.6 g/dL (3.5-5.0); Albumin Globulin Ratio 1.3 (1.0-2.8); Alkaline Phosphatase 45 U/L (38-126); Aspartate Aminotransferase 28 IU/L (14-36); BUN Creatinine Ratio 21.7 (6-22); Bilirubin Total 0.7 mg/dL (0.2-1.3); Blood Urea Nitrogen 15 mg/dL (7-17); Calcium 9.9 mg/dL (8.4-10.2); Carbon Dioxide 31 mmol/L (22-32); Chloride 101 mmol/L (98-107); Estimated Glomerular Filt Rate > 60.0 mL/min (>60); Globulin 3.5 g/dL (1.7-4.1); Glucose 108 mg/dL (70-100); HEMOLYSIS 18 (0-50); Sodium 140 mmol/L (137-145); Total Protein 8.1 g/dL (6.3-8.2)
[2020-02-26 10:40] LABS: Prothrombin Time 11.4 SECONDS (10.1-12.7)
== END ==
PROVIDERS: Family Provider Obstetrics & Gynecology; PCP Family Medicine; Referring Provider Family Medicine; Visit Provider Family Medicine
DX: R23.8 Other skin changes (principal)
CPT/HCPCS: 36415; 80053; 85025; 85610

== ENCOUNTER → 2020-06-03 07:14 | Outpatient (CLI) | payer OTHER, SELFPAY ==
[2018-09-15 10:08] VITALS: BMI 33.0
[2020-06-03 08:27] LABS: Add Manual Diff / Slide Review NO; Basophils Absolute Auto 100 /uL (0-100); Basophils Percent Auto 1.3 % (0-2); Eosinophils Absolute Auto 100 /uL (0-450); Eosinophils Percent Auto 2.1 % (2-4); Hemoglobin 13.5 g/dL (12.0-16.0); Lymphocytes Absolute Auto 1700 /uL (1100-4500); Mean Corpuscular Hemoglobin 28.5 PG (26-34); Mean Corpuscular Volume 86.3 fL (80-100); Monocytes Absolute Auto 700 /uL (0-900); Monocytes Percent Auto 13.8 % (3-14); Neutrophils Absolute Auto 2400 /uL (1500-7000); Neutrophils Percent Auto 48.8 % (50-75); Platelet Count 237 X10^3/uL (150-400); Red Blood Cell Count 4.75 X10^6/uL (4.0-5.2); Red Cell Distribution Width 14.3 % (11.6-14.8); White Blood Cell Count 4.9 X10^3/uL (4.5-11.0)
[2020-06-03 08:44] LABS: Alanine Aminotransferase 17 IU/L (<35); Albumin 4.5 g/dL (3.5-5.0); Albumin Globulin Ratio 1.3 (1.0-2.8); Alkaline Phosphatase 47 U/L (38-126); Aspartate Aminotransferase 26 IU/L (14-36); BUN Creatinine Ratio 20.9 (6-22); Bilirubin Total 0.7 mg/dL (0.2-1.3); Blood Urea Nitrogen 14 mg/dL (7-17); Calcium 9.8 mg/dL (8.4-10.2); Carbon Dioxide 29 mmol/L (22-32); Chloride 101 mmol/L (98-107); Cholesterol 268 mg/dL (140-199); Estimated Glomerular Filt Rate > 60.0 mL/min (>60); Globulin 3.5 g/dL (1.7-4.1); Glucose 107 mg/dL (70-100); HDL Cholesterol 52 mg/dL (40-60); HEMOLYSIS < 15 (0-50); LDL Cholesterol Calculated 191 mg/dL (<100); Potassium 4.4 mmol/L (3.4-5.1); Sodium 137 mmol/L (137-145); Triglycerides 127 mg/dL (35-150)
== END ==
PROVIDERS: Family Provider Obstetrics & Gynecology; PCP Family Medicine; Referring Provider Family Medicine; Visit Provider Family Medicine
DX: E78.2 Mixed hyperlipidemia (principal); Z82.49 Family history of ischemic heart disease and other diseases of the circulatory system; D70.9 Neutropenia, unspecified
CPT/HCPCS: 36415; 80053; 80061; 85025

== ENCOUNTER 2020-11-20 17:43 | Observation (INO) | payer OTHER, SELFPAY ==
[2018-09-15 10:08] VITALS: BMI 33.0
[2020-11-20] VITALS (13 sets, daily range): BP systolic 124–162; BP diastolic 54–94; PULSE 67–85; RESP 14–24; TEMP 36–36.8; O2SAT 94–99; BMI 35.0
--- NOTE | 2020-11-20 17:48 | DI.RAD.S_ITS ---
PROCEDURE: XR CHEST 1V INDICATIONS: chest pain TECHNIQUE: One view of the chest was acquired. COMPARISON: [facility], , CHEST 1 VIEW, 06/30/2012, 6:28. FINDINGS: Surgical changes and devices: None. Lungs and pleura: Lungs are clear. No pleural effusions or pneumothorax. Mediastinum: Mediastinal contours appear normal. Heart size is normal. Bones and chest wall: No suspicious bony lesions. Overlying soft tissues appear unremarkable. IMPRESSION: No acute cardiopulmonary disease. Dictated by: Presley Ortega M.D. on 11/20/2020 at 18:24 Approved by: Presley Ortega M.D. on 11/20/2020 at 18:25
[2020-11-20 18:11] LABS: INR 0.9 (0.9-1.3); Prothrombin Time 10.8 SECONDS (10.1-12.7)
[2020-11-20 18:14] LABS: PTT Partial Thromboplastin Tim 31 SECONDS (26.4-36.2)
[2020-11-20 18:15] LABS: Add Manual Diff / Slide Review NO; Basophils Absolute Auto 100 /uL (0-100); Basophils Percent Auto 1.4 % (0-2); Eosinophils Absolute Auto 100 /uL (0-450); Eosinophils Percent Auto 1.9 % (2-4); Hematocrit 40.4 % (36-46); Hemoglobin 13.7 g/dL (12.0-16.0); Lymphocytes Absolute Auto 2300 /uL (1100-4500); Mean Corpuscular HGB Conc 33.8 % (30-36); Mean Corpuscular Hemoglobin 29.5 PG (26-34); Monocytes Absolute Auto 700 /uL (0-900); Monocytes Percent Auto 9.6 % (3-14); Neutrophils Absolute Auto 3600 /uL (1500-7000); Neutrophils Percent Auto 53.1 % (50-75); Platelet Count 235 X10^3/uL (150-400); Red Blood Cell Count 4.64 X10^6/uL (4.0-5.2); Red Cell Distribution Width 14.1 % (11.6-14.8); White Blood Cell Count 6.8 X10^3/uL (4.5-11.0)
[2020-11-20 18:46] LABS: Alanine Aminotransferase 21 IU/L (<35); Albumin 4.5 g/dL (3.5-5.0); Albumin Globulin Ratio 1.3 (1.0-2.8); Alkaline Phosphatase 46 U/L (38-126); Aspartate Aminotransferase 27 IU/L (14-36); Bilirubin Total 0.5 mg/dL (0.2-1.3); Blood Urea Nitrogen 11 mg/dL (7-17); Calcium 9.5 mg/dL (8.4-10.2); Carbon Dioxide 27 mmol/L (22-32); Chloride 101 mmol/L (98-107); Creatine Kinase 76 U/L (30-135); Estimated Glomerular Filt Rate > 60.0 mL/min (>60); Globulin 3.4 g/dL (1.7-4.1); Glucose 117 mg/dL (70-100); HEMOLYSIS 24 (0-50); Lipase 224 U/L (23-300); Potassium 3.5 mmol/L (3.4-5.1); Sodium 137 mmol/L (137-145); Total Protein 7.9 g/dL (6.3-8.2)
--- NOTE | 2020-11-20 19:11 | ED.ARRPALP ---
HPI - Arrhythmia/Palpitations General Chief Complaint: Arrhythmia/Palpitations Stated Complaint: rapid heartrate Time Seen by Provider: 11/20/20 18:19 Source: patient Mode of arrival: Ambulatory History of Present Illness HPI narrative: Patient here for intermittent palpitations with exertional dyspnea for the past 2 or 3 weeks. Occasional has substernal discomfort no discomfort at this time. Two days ago had right posterior thigh discomfort. Resolved. No prior history of heart attack strokes or diabetes. No prior history of DVT or PE. No recent immobilization or surgeries. No syncope. No recent illness fever chills cough cold or congestion. No nausea vomiting or diarrhea MD complaint: palpitations Related Data Home Medications Medication Instructions Recorded Confirmed cholecalciferol (vitamin D3) 50 5,000 unit PO DAILY 07/12/18 11/20/20 mcg (2,000 unit) capsule magnesium oxide 400 mg PO DAILY 11/15/18 11/20/20 Previous Rx's Medication Instructions Recorded levothyroxine 88 mcg tablet 88 mcg PO DAILY #90 tab MDD 1 02/05/20 hydrochlorothiazide 25 mg tablet 25 mg PO DAILY #90 tab 04/10/20 ezetimibe 10 mg tablet 10 mg PO DAILY #90 tab 10/24/20 Allergies Allergy/AdvReac Type Severity Reaction Status Date / Time amoxicillin [AMOXICILLIN] Allergy Severe HIVES, Verified 05/01/19 08:24 ANGIOEDEMA clavulanic acid Allergy Severe HIVES, Verified 05/01/19 08:24 [CLAVULANIC ACID] ANGIOEDEMA Penicillins [PENICILLINS] Allergy Unknown Verified 05/01/19 08:24 Review of Systems Review of Systems Narrative: GENERAL: Denies chills, fatigue, malaise, fever, sweats. HEENT: Denies sinus pain, ear pain, sore throat RESPIRATORY: From 1 dyspnea, denies cough CARDIOVASCULAR: Complains chest pain, palpitations GASTROINTESTINAL: Denies nausea, vomiting, abdominal pain : Denies dysuria, frequency, hematuria MUSCULOSKELETAL: denies muscle or bony pain SKIN: Denies rash, skin lesions NEUROLOGIC: Denies weakness, numbness ROS Unobtainable: All systems reviewed & are unremarkable except as noted in HPI and below Patient History Medical History (Updated 11/20/20 @ 20:52 by Eamon Castellon MD) Asthma Chicken pox (~1965) Foot pain (~2015) Hay fever Hyperlipidemia Hypertension Hypothyroidism (~2012) Psoriasis (~1989) Shingles (~06/09/16) Vertigo (~2009) Surgical History Anesthesia History of eyelid surgery (~2013) History of tonsillectomy (~1965) Status post endometrial ablation (~2006) Status post knee surgery (~2012) Family History Mother Heart disease High cholesterol Mental health problem Grandfather Stroke Grandmother Stroke Grandfather Cancer Social History household members: spouse Smoking Status: Former smoker alcohol intake: never substance use type: does not use Smoking Status: Former smoker Substance Use Type: does not use Exam Narrative Exam Narrative: GENERAL: in no distress, not toxic not dyspneic HEAD: Normocephalic. EYES: Pupils equal round ENT: Mucous membranes moist. NECK: Trachea midline. CARDIOVASCULAR: Regular rate and rhythm without murmurs RESPIRATORY: Clear to auscultation. Breath sounds equal bilaterally. No wheezes, rales, or rhonchi. GASTROINTESTINAL: Abdomen soft, non-tender EXTREMITIES: No gross deformities. BACK: No flank tenderness. NEURO: AOx4. SKIN: Warm and dry PSYCH: Not anxious, is cooperative Initial Vital Signs Initial Vital Signs: Vital Signs Pulse Rate 77 11/20/20 17:48 Respiratory Rate 20 11/20/20 17:48 Pulse Oximetry 97 11/20/20 17:48 Course Course Course Narrative: Patient's symptoms off and on and episodic. Evolving symptoms. Would benefit from admission Decision to Admit Date: 11/20/20 Decision to Admit time: 20:49 Orders Ordered: ED Orders 11/20/20 17:48 XR chest 1V Stat EKG-12 Lead Stat 11/20/20 17:55 Complete Blood Count AUTO DIFF Stat Comprehensive Metabolic Panel Stat D Dimer Stat Lipase Stat Magnesium Stat Partial Thromboplastin Time Stat Prothrombin Time INR Stat Troponin & CK Cardiac Panel Stat 11/20/20 19:10 periph venous low extrem rt Stat Acetaminophen (Acetaminophen 325 Mg Tablet) 650 mg PO Q6HR PRN PRN Reason: Fever/Mild Pain (1-3) Aspirin (Aspirin Ec 81 Mg Tablet) 81 mg PO DAILY NATHALIE Bisacodyl (Bisacodyl 10 Mg Supp) 10 mg TN DAILY PRN PRN Reason: Constipation Ezetimibe (Ezetimibe 10 Mg Tablet) 10 mg PO DAILY [facility] Enoxaparin Sodium (Enoxaparin 40 Mg/0.4 Ml Syringe) 40 mg SUBCUT DAILY [facility] Famotidine (Famotidine 20 Mg Tablet) 20 mg PO BID [facility] Last Admin: 11/20/20 22:50 Dose: 20 mg Documented by: MILDRED Potassium Chloride 40 meq/ (Sodium Chloride) 520 mls @ 130 mls/hr IV NOW ONE Stop: 11/21/20 01:43 Last Admin: 11/20/20 22:48 Dose: 130 mls/hr Documented by: MILDRED Cosigned by: YAQUELIN Levothyroxine Sodium (Levothyroxine 88 Mcg Tablet) 88 mcg PO 0600 [facility] Magnesium Hydroxide (Magnesium Hydroxide 30 Ml Udc) 30 ml PO DAILY PRN PRN Reason: Constipation Magnesium Oxide (Magnesium Oxide 400 Mg Tablet) 400 mg PO DAILY [facility] Morphine Sulfate (Morphine 2 Mg/Ml Inj) 2 mg IV Q5MIN PRN PRN Reason: Chest Pain Naloxone HCl (Naloxone 0.4 Mg/Ml Vial) 0.2 mg IV Q2MIN PRN PRN Reason: Opiate Reversal Nitroglycerin (Nitroglycerin 0.4 Mg Sl Tab) 0.4 mg SL [id number] PRN PRN Reason: Chest Pain Discontinued Medications Aspirin (Aspirin 81 Mg Chew Tab) 324 mg PO NOW ONE Stop: 11/20/20 19:12 Last Admin: 11/20/20 20:14 Dose: 324 mg Documented by: FELA Non-Formulary Medication (Magnesium Oxide) 400 mg PO DAILY [facility] Consultations Consultation #1: Spoke with Dr. Jose rai, on-call for primary care dr faisal covington, she does not see patients in the hospital in more. If requiring admission then admit to hospitalist Time: 20:35 Consultation #2: Spoke with Pino, hospitalist, will admit patient Time: 20:49 Vital Signs Vital signs: Vital Signs - 8 hr 11/20/20 17:48 11/20/20 17:53 11/20/20 17:54 Temperature 97.2 F L Pulse Rate 77 73 Respiratory Rate 20 15 Blood Pressure 162/94 H Pulse Oximetry 97 94 11/20/20 18:00 11/20/20 18:30 11/20/20 19:06 Temperature Pulse Rate 69 68 74 Respiratory Rate 14 22 Blood Pressure 134/84 148/79 H Pulse Oximetry 97 95 97 11/20/20 19:07 11/20/20 19:30 11/20/20 20:00 Temperature Pulse Rate 71 67 70 Respiratory Rate 15 17 24 Blood Pressure 146/86 H 138/73 144/75 H Pulse Oximetry 97 99 95 11/20/20 20:30 11/20/20 21:00 Temperature Pulse Rate 73 69 Respiratory Rate 21 17 Blood Pressure 136/75 135/73 Pulse Oximetry 97 97 MDM - Arrhythmia/Palpitations Differential Diagnosis Differential diagnosis: Likely palpitations, anxiety, artial fibrillation, artial flutter, ventricular premature beats, supraventricular tachycardia, ventricular tachycardia, WPW and other (Chest pain) Lab Data Attestation: I reviewed the patient's lab results. Result diagrams: 11/20/20 17:55 11/20/20 17:55 Labs: Lab Results 11/20/20 11/20/20 11/20/20 Range/Units 17:55 17:55 17:55 WBC 6.8 (4.5-11.0) X10^3/uL RBC 4.64 (4.0-5.2) X10^6/uL Hgb 13.7 (12.0-16.0) g/dL Hct 40.4 (36-46) % MCV 87.0 (80-100) fL MCH 29.5 (26-34) PG MCHC 33.8 (30-36) % RDW 14.1 (11.6-14.8) % Plt Count 235 (150-400) X10^3/uL Neut % (Auto) 53.1 (50-75) % Lymph % (Auto) 34.0 (25-40) % [place] % (Auto) 9.6 (3-14) % Eos % (Auto) 1.9 L (2-4) % Baso % (Auto) 1.4 (0-2) % Neut # (Auto) 3600 (6490-9521) /uL Lymph # (Auto) 2300 (7799-8750) /uL [place] # (Auto) 700 (0-900) /uL Eos # (Auto) 100 (0-450) /uL Baso # (Auto) 100 (0-100) /uL PT 10.8 (10.1-12.7) SECONDS INR 0.9 (0.9-1.3) APTT 31 (26.4-36.2) SECONDS D-Dimer (<230) ng/mL Sodium 137 (137-145) mmol/L Potassium 3.5 (3.4-5.1) mmol/L Chloride 101 (98-107) mmol/L Carbon Dioxide 27 (22-32) mmol/L BUN 11 (7-17) mg/dL Creatinine 0.61 (0.52-1.04) mg/dL Estimated GFR > 60.0 (>60) mL/min BUN/Creatinine Ratio 18.0 (6-22) Glucose 117 H (70-100) mg/dL Calcium 9.5 (8.4-10.2) mg/dL Magnesium (1.6-2.3) mg/dL Total Bilirubin 0.5 (0.2-1.3) mg/dL AST 27 (14-36) IU/L ALT 21 (<35) IU/L Alkaline Phosphatase 46 (38-126) U/L Total Creatine Kinase 76 (30-135) U/L CK-MB (CK-2) TNP CK-MB (CK-2) Rel Index TNP Troponin I < 0.012 (0.01-0.034) ng/mL Total Protein 7.9 (6.3-8.2) g/dL Albumin 4.5 (3.5-5.0) g/dL Globulin 3.4 (1.7-4.1) g/dL Albumin/Globulin Ratio 1.3 (1.0-2.8) Lipase 224 (23-300) U/L 11/20/20 11/20/20 Range/Units 17:55 17:55 WBC (4.5-11.0) X10^3/uL RBC (4.0-5.2) X10^6/uL Hgb (12.0-16.0) g/dL Hct (36-46) % MCV (80-100) fL MCH (26-34) PG MCHC (30-36) % RDW (11.6-14.8) % Plt Count (150-400) X10^3/uL Neut % (Auto) (50-75) % Lymph % (Auto) (25-40) % [place] % (Auto) (3-14) % Eos % (Auto) (2-4) % Baso % (Auto) (0-2) % Neut # (Auto) (7770-8829) /uL Lymph # (Auto) (9467-5967) /uL [place] # (Auto) (0-900) /uL Eos # (Auto) (0-450) /uL Baso # (Auto) (0-100) /uL PT (10.1-12.7) SECONDS INR (0.9-1.3) APTT (26.4-36.2) SECONDS D-Dimer < 200 (<230) ng/mL Sodium (137-145) mmol/L Potassium (3.4-5.1) mmol/L Chloride (98-107) mmol/L Carbon Dioxide (22-32) mmol/L BUN (7-17) mg/dL Creatinine (0.52-1.04) mg/dL Estimated GFR (>60) mL/min BUN/Creatinine Ratio (6-22) Glucose (70-100) mg/dL Calcium (8.4-10.2) mg/dL Magnesium 2.0 (1.6-2.3) mg/dL Total Bilirubin (0.2-1.3) mg/dL AST (14-36) IU/L ALT (<35) IU/L Alkaline Phosphatase (38-126) U/L Total Creatine Kinase (30-135) U/L CK-MB (CK-2) CK-MB (CK-2) Rel Index Troponin I (0.01-0.034) ng/mL Total Protein (6.3-8.2) g/dL Albumin (3.5-5.0) g/dL Globulin (1.7-4.1) g/dL Albumin/Globulin Ratio (1.0-2.8) Lipase (23-300) U/L Imaging Data Chest x-ray: Radiologist's Impresson: [address] [id number] ReportSigned Patient: Ewa Heaton LMR#: [id number]: 1960cct:[id number]/Sex: 60 / FDate of Service: 11/20/20Loc: EDAccession Number: [id number] Procedure: XR chest 1V Ordering Provider: Alicia Mathur D.O. PROCEDURE: XR CHEST 1V INDICATIONS: chest pain TECHNIQUE: One view of the chest was acquired. COMPARISON: [facility], CHEST 1 VIEW, 06/30/2012, 6:28. FINDINGS: Surgical changes and devices: None. Lungs and pleura: Lungs are clear. No pleural effusions or pneumothorax. Mediastinum: Mediastinal contours appear normal. Heart size is normal. Bones and chest wall: No suspicious bony lesions. Overlying soft tissues appear unremarkable. IMPRESSION: No acute cardiopulmonary disease. Dictated by: Presley Ortega M.D. on 11/20/2020 at 18:24 Approved by: Presley Ortega M.D. on 11/20/2020 at 18:25 US - DVT: Radiologist's Impresson: [address] [id number] ReportSigned Patient: Ewa Heaton LMR#: [id number]: 1960cct:[id number]/Sex: 60 / FDate of Service: 11/20/20Loc: EDAccession Number: [id number] Procedure: US periph venous low extrem rt Ordering Provider: Eamon Castellon MD PROCEDURE: US PERIPH VENOUS LOW EXTREM RT INDICATIONS: PAIN TECHNIQUE: Real-time imaging, as well as color and pulse Doppler interrogation, were performed of the lower extremity deep veins from the inguinal ligament to the popliteal fossa. COMPARISON: None. FINDINGS: The common femoral, femoral and popliteal veins are normally compressible, and free of intraluminal thrombus. Color and pulse Doppler demonstrate normal phasic intraluminal flow. There is normal augmentation response to distal compression maneuver. IMPRESSION: No DVT in the right lower extremity. Dictated by: Presley Ortega M.D. on 11/20/2020 at 19:55 Approved by: Presley Ortega M.D. on 11/20/2020 at 19:56 ECG Data Attestation: I personally reviewed and interpreted this ECG as follows: Interpretation: Normal sinus rhythm rate [address] elevation or depression Discharge Plan Departure Patient Disposition: Admitted as Observation Clinical Impression: Palpitations, Acute dyspnea Chest pain Qualifiers: Chest pain type: unspecified Qualified Code(s): R07.9 - Chest pain, unspecified Admit Date/Time: 11/20/20 21:04 Admit Provider: Vineet Delgado
[2020-11-20 19:35] LABS: D Dimer < 200 ng/mL (<230)
[2020-11-20] MEDS: ASPIRIN 81 MG CHEW TAB 324 MG PO (20:14)
[2020-11-20 21:01] LABS: Troponin I < 0.012 ng/mL (0.01-0.034)
--- NOTE | 2020-11-20 22:15 | P.HP_ITS ---
History of Present Illness History of Present Illness Date Patient Seen: 11/20/20 Time Patient Seen: 21:40 Chief complaint: rapid heartrate Narrative: Ms. Ewa Heaton is a 60-year-old female with past medical history significant for hypertension, hyperlipidemia, hypothyroidism, exercise- induced asthma and vertigo who presents to the ER with complaints of p alpitations and episodic exertional dyspnea for 2-3 weeks. The patient reports an occasional substernal upper chest pressure with intermittent palpitations that is nonradiating and nonpleuritic that will come and go with no accessory dating or relenting factors. Upon arrival to the ER the patient reports no current complaints of chest pain or shortness of breath. She notes she will become short of breath walking down the shoemaker or up a flight of stairs but states that this is inconsistent and is different than the activity level inducing her asthma and denies complaints of cough or wheezing. She reports no complaints of lightheaded or dizziness though she does have a history of vertigo, no diaphoresis or nausea vomiting. Two days ago the patient reports posterior thigh pain that woke her from sleep that she describes as a muscle cramp with persistent soreness throughout the remainder of the day. She denies leg swelling or redness. The patient reports no recent cold or flu symptoms or known COVID-19 exposures. The patient denies nasal congestion or sore throat has persistent ear problems related to her vertigo. She denies neck pain back pain. She has no chest pain but endorses palpitations described as a flip-flop in her chest. She has shortness of breath as above denies wheezing or cough. She reports no complaints of epigastric or abdominal pain, no nausea vomiting, n o diarrhea or constipation. Patient denies urinary symptoms. The patient is fully independent in all activities daily living and uses no assistive devices. Upon arrival to the ER the patient has temperature of 97.2?, heart rate of 73, blood pressure 162/94, respirations 15 saturating 94% on room air. Twelve lead EKG is obtained which finds in sinus rhythm at a rate of 70 with no ectopy, bloc k, ST or T-wave changes no indication of infarct. The tracing is unchanged compared to prior exam. Chest x-ray finds no acute cardiopulmonary pathology. A venous Doppler is obtained which is negative for DVT. On laboratory analysis the patient has white count was 6.8, hemoglobin 13.7, hematocrit of 40.4 and platelets of 235. She has a PT of 10.7, INR 0.9, PTT of 31. D-dimer is found to be less than 200. On chemistries the patient has a borderline low potassium at 3.5 has a BUN of 11 and creatinine 0.61. Her nonfasting glucose is 117. Her liver functions are all within normal limits and she has a total CK of 76 and troponin is negative at less than 0.012. Patient History Medical History Asthma Chicken pox (~1965) Foot pain (~2015) Hay fever Hyperlipidemia Hypertension Hypothyroidism (~2012) Psoriasis (~1989) Shingles (~06/09/16) Vertigo (~2009) Surgical History Anesthesia History of eyelid surgery (~2013) History of left breast biopsy History of tonsillectomy (~1965) Status post endometrial ablation (~2006) Status post knee surgery (~2012) Family & Social History Family History (Updated 11/21/20 @ 00:55 by CHARLOTTE Soto) Mother Heart disease High cholesterol Mental health problem Diabetes mellitus Grandfather Stroke Grandmother Stroke Grandfather Cancer Social History: household members spouse Prior Living Arrangements House Safety & Behavioral: Feels Safe in Current Yes Environment Been Physically Hurt or No Threatened By a Person Suicidal Ideation Description None Suicide Plan Description No Plan Tobacco & Substance use: Tobacco type cigarettes Smoking Status Former smoker alcohol intake never Substance Use Type does not use Meds Home Medications and Allergies Home Medications Medication Instructions Recorded Confirmed Type cholecalciferol (vitamin D3) 50 5,000 unit PO DAILY 07/12/18 11/20/20 History mcg (2,000 unit) capsule magnesium oxide 400 mg PO DAILY 11/15/18 11/20/20 History levothyroxine 88 mcg tablet 88 mcg PO DAILY #90 tab MDD 1 02/05/20 11/20/20 Rx hydrochlorothiazide 25 mg tablet 25 mg PO DAILY #90 tab 04/10/20 11/20/20 Rx ezetimibe 10 mg tablet 10 mg PO DAILY #90 tab 10/24/20 11/20/20 Rx Allergies Allergy/AdvReac Type Severity Reaction Status Date / Time amoxicillin [AMOXICILLIN] Allergy Severe HIVES, Verified 05/01/19 08:24 ANGIOEDEMA clavulanic acid Allergy Severe HIVES, Verified 05/01/19 08:24 [CLAVULANIC ACID] ANGIOEDEMA Penicillins [PENICILLINS] Allergy Unknown Verified 05/01/19 08:24 Review of Systems Review of Systems ROS: Yes All systems reviewed with the patient and are negative except as otherwise documented Exam Vital Signs (past 8 hours): - 11/20/20 17:48 11/20/20 17:53 11/20/20 17:54 Temperature 97.2 F L Pulse Rate 77 73 Respiratory Rate 20 15 Blood Pressure 162/94 H Pulse Oximetry 97 94 11/20/20 18:00 11/20/20 18:30 11/20/20 19:06 Temperature Pulse Rate 69 68 74 Respiratory Rate 14 22 Blood Pressure 134/84 148/79 H Pulse Oximetry 97 95 97 11/20/20 19:07 11/20/20 19:30 11/20/20 20:00 Temperature Pulse Rate 71 67 70 Respiratory Rate 15 17 24 Blood Pressure 146/86 H 138/73 144/75 H Pulse Oximetry 97 99 95 11/20/20 20:30 11/20/20 21:00 11/20/20 21:30 Temperature 96.8 F L Pulse Rate 73 69 69 Respiratory Rate 21 17 20 Blood Pressure 136/75 135/73 154/89 H Pulse Oximetry 97 97 96 11/20/20 23:35 Temperature 98.2 F Pulse Rate 85 Respiratory Rate 17 Blood Pressure 124/54 L Pulse Oximetry 98 Oxygen Delivery Method Room Air Oxygen Flow Rate 0 Narrative Exam Narrative: GENERAL APPEARANCE: well developed, obese female with a BMI of 35.1 lying semi recumbent bed in no acute distress. HEENT: Normocephalic, PERRLA, conjunctiva clear, EOMs intact without nystagmus, no sinus tenderness to percussion, no rhinorrhea, mucous membranes are moist and pink. NECK/THYROID: neck supple, no JVD, no carotid bruit, no thyromegaly, trachea midline. LYMPH NODES: no cervical or supraclavicular lymphadenopathy. SKIN: [place], warm and dry, no visible lesions, rashes, ulcerations or petechiae. HEART: regular rate and rhythm, S1-S2, no murmur, no rubs or gallops, brisk capi llary refill, no edema LUNGS: clear to auscultation bilaterally, no coarseness crackles or wheezing, no cough present CHEST: Symmetrical movement, no accessory muscle use, good tidal volume. ABDOMEN: Soft, protuberant, no epigastric or abdominal tenderness, no guarding or peritoneal signs, no organomegaly, no flank or suprapubic tenderness, active bowel tones. BACK: Normal curvature, nontender to palpation. EXTREMITIES: moves all extremities, strength is 5/5 and symmetrical, no deformities or joint effusions. NEUROLOGIC: AAO x4, no focal neurologic deficits, cranial nerves II-XII grossly intact, sensation intact to light touch, hearing grossly normal to speech. PSYCH: Pleasant and cooperative, presently interactive, linear thought, stable behavior Objective Labs Result Diagrams: 11/20/20 17:55 11/20/20 17:55 Labs: Laboratory Results - last 24 hr 11/20/20 11/20/20 11/20/20 17:55 17:55 17:55 WBC 6.8 RBC 4.64 Hgb 13.7 Hct 40.4 MCV 87.0 MCH 29.5 MCHC 33.8 RDW 14.1 Plt Count 235 Neut % (Auto) 53.1 Lymph % (Auto) 34.0 [place] % (Auto) 9.6 Eos % (Auto) 1.9 L Baso % (Auto) 1.4 Neut # (Auto) 3600 Lymph # (Auto) 2300 [place] # (Auto) 700 Eos # (Auto) 100 Baso # (Auto) 100 PT 10.8 INR 0.9 APTT 31 D-Dimer Sodium 137 Potassium 3.5 Chloride 101 Carbon Dioxide 27 BUN 11 Creatinine 0.61 Estimated GFR > 60.0 BUN/Creatinine Ratio 18.0 Glucose 117 H Calcium 9.5 Magnesium Total Bilirubin 0.5 AST 27 ALT 21 Alkaline Phosphatase 46 Total Creatine Kinase 76 CK-MB (CK-2) TNP CK-MB (CK-2) Rel Index TNP Troponin I < 0.012 NT-Pro-B Natriuret Pep Total Protein 7.9 Albumin 4.5 Globulin 3.4 Albumin/Globulin Ratio 1.3 Lipase 224 11/20/20 11/20/20 11/20/20 17:55 17:55 23:15 WBC RBC Hgb Hct MCV MCH MCHC RDW Plt Count Neut % (Auto) Lymph % (Auto) [place] % (Auto) Eos % (Auto) Baso % (Auto) Neut # (Auto) Lymph # (Auto) [place] # (Auto) Eos # (Auto) Baso # (Auto) PT INR APTT D-Dimer < 200 Sodium Potassium Chloride Carbon Dioxide BUN Creatinine Estimated GFR BUN/Creatinine Ratio Glucose Calcium Magnesium 2.0 Total Bilirubin AST ALT Alkaline Phosphatase Total Creatine Kinase CK-MB (CK-2) CK-MB (CK-2) Rel Index Troponin I NT-Pro-B Natriuret Pep 31 Total Protein Albumin Globulin Albumin/Globulin Ratio Lipase 11/20/20 23:15 WBC RBC Hgb Hct MCV MCH MCHC RDW Plt Count Neut % (Auto) Lymph % (Auto) [place] % (Auto) Eos % (Auto) Baso % (Auto) Neut # (Auto) Lymph # (Auto) [place] # (Auto) Eos # (Auto) Baso # (Auto) PT INR APTT D-Dimer Sodium Potassium Chloride Carbon Dioxide BUN Creatinine Estimated GFR BUN/Creatinine Ratio Glucose Calcium Magnesium Total Bilirubin AST ALT Alkaline Phosphatase Total Creatine Kinase CK-MB (CK-2) CK-MB (CK-2) Rel Index Troponin I < 0.012 NT-Pro-B Natriuret Pep Total Protein Albumin Globulin Albumin/Globulin Ratio Lipase Assessment & Plan Assessment & Plan narrative: This is a 60-year-old female patient who has had intermittent chest pressure, palpitations and exertional dyspnea on and off for the last 2 the 3 weeks. The patient contacted her primary care and presented to the ER on the recommendation for further evaluation. 1. Precordial chest pressure, acute, active. -patient reports intermittent upper chest pain that is nonradiating non paretic and non reproducible for 2-3 weeks with associated complaints of palpitations. -heart score is 2. -12 lead EKG reveals sinus rhythm at a rate of 70 without ectopy or block, no ST or T-wave changes and no evidence of infarct. -chest x-ray finds no acute cardiopulmonary pathology. -laboratory testing shows normal white count with no shift, total CK is 76 and troponin is less than 0.012, D-dimer is less than 200. -Potassium is borderline low at 3.5, ordered potassium 40 mEq IV, will add magnesium level to the labs and recheck chemistries in the morning -order aspirin 81 mg daily -patient remains asymptomatic, will monitor the patient on telemetry. -initial troponin is negative will check serial troponins. -ordered cardiac stress test 2. Hypertension, chronic, stable improved to 135 over -patient with elevated blood pressure upon her presentation to the ER at 162/94 improved to 135/73 following admission. -the patient is not taking routine antihypertensives however she does hydrochlorothiazide for treatment vertigo. 3. Vertigo, chronic, stable. -the patient is prescribed hydrochlorothiazide 25 mg daily in conjunction with a low-sodium diet and treatment of vertigo. 4. Hyperlipidemia, chronic, stable. -will continue routine regimen of Zetia 10 mg daily. -lipid panel ordered for morning labs 5. Hypothyroidism, chronic, stable. -last TSH was 1.60 in January,. -will continue home regimen of levothyroxine 88 mcg daily. VTE prophylaxis: Enoxaparin IV fluid: Saline lock Diet: Heart healthy Code status: Full code, patient designates her to be her surrogate decision maker. The patient is admitted to the hospital related to the patient's severity of symptoms requiring further monitoring and evaluation to be vent complications or adverse events. The patient is admitted as observation with expected length of stay to be less than 2 midnights. COVID-19 COVID-19 status: Negative Result date/Date tested (Pos, Neg/Pending): 11/20/20 Scores GCS [place] coma scale eye opening: Spontaneous Tita coma scale verbal response: Orientated [place] coma scale motor response: Obey commands Tita coma scale total score: 15 Quality VTE Deep Vein Thrombosis/Pulmonary Embolism Present on Admission: No
--- NOTE | 2020-11-20 22:39 | PC.NURSE ---
Pt to room 207 from E.R. via wheelchair. Able to ambulate into bed. Denies chest pain or discomfort. Denies nausea. Independent to toilet in bathroom. Tele placed and ICU made aware. CHARLOTTE Delgado in to see patient. Plan of care reviewed with pt. BL calf scd's placed as ordered.
[2020-11-20] MEDS: POTASSIUM CHLORIDE 40 MEQ in SODIUM CHLORIDE 0.9% 500 ML 130 ML IV (22:48)
[2020-11-20] MEDS: FAMOTIDINE 20 MG TABLET PO (22:50)
[2020-11-20 23:43] LABS: Troponin I < 0.012 ng/mL (0.01-0.034)
[2020-11-21 00:03] LABS: NT-proBNP (BNP-Adult 18+) 31 pg/mL (<125)
[2020-11-21 03:30] VITALS: BP 124/69; PULSE 80; RESP 18; TEMP 36.9; O2SAT 96
[2020-11-21] MEDS: SODIUM CHLORIDE 0.9% FLUSH 10 ML IV ×3 (03:40→20:41)
[2020-11-21] MEDS: LEVOTHYROXINE 88 MCG TABLET PO (05:47)
[2020-11-21 06:00] LABS: BUN Creatinine Ratio 13.4 (6-22); Blood Urea Nitrogen 9 mg/dL (7-17); Calcium 9.1 mg/dL (8.4-10.2); Carbon Dioxide 30 mmol/L (22-32); Chloride 106 mmol/L (98-107); Cholesterol 243 mg/dL (140-199); Estimated Glomerular Filt Rate > 60.0 mL/min (>60); Glucose 98 mg/dL (70-100); HDL Cholesterol 38 mg/dL (40-60); HEMOLYSIS < 15 (0-50); LDL Cholesterol Calculated 153 mg/dL (<100); Sodium 137 mmol/L (137-145); Triglycerides 258 mg/dL (35-150)
[2020-11-21 06:10] LABS: Troponin I < 0.012 ng/mL (0.01-0.034)
[2020-11-21 07:30] VITALS: BP 125/77; PULSE 66; RESP 17; TEMP 36.8; O2SAT 98
[2020-11-21 07:52] VITALS: PULSE 69; O2SAT 97
[2020-11-21 08:50] LABS: COVID19 -Nasal RAPID Negative (Negative)
[2020-11-21] MEDS: MAGNESIUM OXIDE 400 MG TABLET PO (09:04)
[2020-11-21] MEDS: ASPIRIN EC 81 MG TABLET PO (09:04)
[2020-11-21] MEDS: FAMOTIDINE 20 MG TABLET PO (09:04)
[2020-11-21] MEDS: EZETIMIBE 10 MG TABLET PO (09:04)
--- NOTE | 2020-11-21 10:19 | P.DS_ITS ---
History of Present Illness History of Present Illness Date Patient Seen: 11/21/20 Chief complaint: rapid heartrate Narrative: Ms. Ewa Heaton is a 60-year-old female with past medical history significant for hypertension, hyperlipidemia, hypothyroidism, exercise- induced asthma and vertigo who presents to the ER with complaints of palpitations and episodic exertional dyspnea for 2-3 weeks. The patient reports an occasional substernal upper chest pressure with intermittent palpitations that is nonradiating and nonpleuritic that will come and go with no accessory dating or relenting factors. Upon arrival to the ER the patient reports no current complaints of chest pain or shortness of breath. She notes she will become short of breath walking down the shoemaker or up a flight of stairs but states that this is inconsistent and is different than the activity level inducing her asthma and denies complaints of cough or wheezing. She reports no complaints of lightheaded or dizziness though she does have a history of vertigo, no diaphoresis or nausea vomiting. Two days ago the patient reports posterior thigh pain that woke her from sleep that she describes as a muscle cramp with persistent soreness throughout the remainder of the day. She denies leg swelling or redness. The patient reports no recent cold or flu symptoms or known COVID-19 exposures. The patient denies nasal congestion or sore throat has persistent ear problems related to her vertigo. She denies neck pain back pain. She has no chest pain but endorses palpitations described as a flip-flop in her chest. She has shortness of breath as above denies wheezing or cough. She reports no complaints of epigastric or abdominal pain, no nausea vomiting, no diarrhea or constipation. Patient denies urinary symptoms. The patient is fully independent in all activities daily living and uses no assistive devices. Upon arrival to the ER the patient has temperature of 97.2?, heart rate of 73, blood pressure 162/94, respirations 15 saturating 94% on room air. Twelve lead EKG is obtained which finds in sinus rhythm at a rate of 70 with no ectopy, block, ST or T-wave changes no indication of infarct. The tracing is unchanged compared to prior exam. Chest x-ray finds no acute cardiopulmonary pathology. A venous Doppler is obtained which is negative for DVT. On laboratory analysis the patient has white count was 6.8, hemoglobin 13.7, hematocrit of 40.4 and platelets of 235. She has a PT of 10.7, INR 0.9, PTT of 31. D-dimer is found to be less than 200. On chemistries the patient has a borderline low potassium at 3.5 has a BUN of 11 and creatinine 0.61. Her nonfasting glucose is 117. Her l iver functions are all within normal limits and she has a total CK of 76 and troponin is negative at less than 0.012. Discharge Providers Provider Date of admission: 11/20/20 21:04 Discharge Date: 12/05/20 Primary care physician: Claudia Miguel DO Consults: 11/20/20 21:44 Consult to Discharge Planning Routine Comment: Discharge provider: Lorena Hudson MD Exam Vital Signs (past 8 hours): - 11/21/20 03:30 11/21/20 07:30 11/21/20 07:52 Temperature 98.4 F 98.3 F Pulse Rate 80 66 69 Respiratory Rate 18 17 Blood Pressure 124/69 125/77 Pulse Oximetry 96 98 97 Oxygen Delivery Method Room Air Oxygen Flow Rate 0 Objective Labs Result Diagrams: 11/20/20 17:55 11/21/20 05:06 Labs: Laboratory Results - last 24 hr 11/20/20 11/20/20 11/20/20 17:55 17:55 17:55 WBC 6.8 RBC 4.64 Hgb 13.7 Hct 40.4 MCV 87.0 MCH 29.5 MCHC 33.8 RDW 14.1 Plt Count 235 Neut % (Auto) 53.1 Lymph % (Auto) 34.0 [place] % (Auto) 9.6 Eos % (Auto) 1.9 L Baso % (Auto) 1.4 Neut # (Auto) 3600 Lymph # (Auto) 2300 [place] # (Auto) 700 Eos # (Auto) 100 Baso # (Auto) 100 PT 10.8 INR 0.9 APTT 31 D-Dimer Sodium 137 Potassium 3.5 Chloride 101 Carbon Dioxide 27 BUN 11 Creatinine 0.61 Estimated GFR > 60.0 BUN/Creatinine Ratio 18.0 Glucose 117 H Calcium 9.5 Magnesium Total Bilirubin 0.5 AST 27 ALT 21 Alkaline Phosphatase 46 Total Creatine Kinase 76 CK-MB (CK-2) TNP CK-MB (CK-2) Rel Index TNP Troponin I < 0.012 NT-Pro-B Natriuret Pep Total Protein 7.9 Albumin 4.5 Globulin 3.4 Albumin/Globulin Ratio 1.3 Triglycerides Cholesterol LDL Cholesterol, Calc HDL Cholesterol Lipase 224 SARS-CoV-2 (PCR) 11/20/20 11/20/20 11/20/20 17:55 17:55 23:15 WBC RBC Hgb Hct MCV MCH MCHC RDW Plt Count Neut % (Auto) Lymph % (Auto) [place] % (Auto) Eos % (Auto) Baso % (Auto) Neut # (Auto) Lymph # (Auto) [place] # (Auto) Eos # (Auto) Baso # (Auto) PT INR APTT D-Dimer < 200 Sodium Potassium Chloride Carbon Dioxide BUN Creatinine Estimated GFR BUN/Creatinine Ratio Glucose Calcium Magnesium 2.0 Total Bilirubin AST ALT Alkaline Phosphatase Total Creatine Kinase CK-MB (CK-2) CK-MB (CK-2) Rel Index Troponin I NT-Pro-B Natriuret Pep 31 Total Protein Albumin Globulin Albumin/Globulin Ratio Triglycerides Cholesterol LDL Cholesterol, Calc HDL Cholesterol Lipase SARS-CoV-2 (PCR) 11/20/20 11/21/20 11/21/20 23:15 05:06 07:00 WBC RBC Hgb Hct MCV MCH MCHC RDW Plt Count Neut % (Auto) Lymph % (Auto) [place] % (Auto) Eos % (Auto) Baso % (Auto) Neut # (Auto) Lymph # (Auto) [place] # (Auto) Eos # (Auto) Baso # (Auto) PT INR APTT D-Dimer Sodium 137 Potassium 4.0 Chloride 106 Carbon Dioxide 30 BUN 9 Creatinine 0.67 Estimated GFR > 60.0 BUN/Creatinine Ratio 13.4 Glucose 98 Calcium 9.1 Magnesium Total Bilirubin AST ALT Alkaline Phosphatase Total Creatine Kinase CK-MB (CK-2) CK-MB (CK-2) Rel Index Troponin I < 0.012 < 0.012 NT-Pro-B Natriuret Pep Total Protein Albumin Globulin Albumin/Globulin Ratio Triglycerides 258 H Cholesterol 243 H LDL Cholesterol, Calc 153 H HDL Cholesterol 38 L Lipase SARS-CoV-2 (PCR) Negative [facility] Medical History Asthma Chicken pox (~1965) Foot pain (~2015) Hay fever Hyperlipidemia Hypertension Hypothyroidism (~2012) Psoriasis (~1989) Shingles (~06/09/16) Vertigo (~2009) Surgical History Anesthesia History of eyelid surgery (~2013) History of left breast biopsy History of tonsillectomy (~1965) Status post endometrial ablation (~2006) Status post knee surgery (~2012) Family History (Updated 11/21/20 @ 00:56 by CHARLOTTE Soto) Mother Heart disease High cholesterol Mental health problem Diabetes mellitus Grandfather Stroke Grandmother Stroke Grandfather Cancer Social History household members: spouse Smoking Status: Former smoker alcohol intake: never substance use type: does not use Discharge Plan Discharge Plan Patient Disposition: Home Provider Discharge Comment: You were admitted to the hospital with chest pain. Cardiac stress testing negative No medication changes are recommended at this time. Please follow up with your PCP if symptoms recur. Discharge orders & Medications Prescriptions: Continued levothyroxine 88 mcg tablet 88 mcg PO DAILY MDD 1 Qty: 90 RF: 3 hydrochlorothiazide 25 mg tablet 25 mg PO DAILY Qty: 90 RF: 3 ezetimibe [Zetia] 10 mg tablet 10 mg PO DAILY Qty: 90 RF: 2 cholecalciferol (vitamin D3) 2,000 unit capsule 5,000 unit PO DAILY RF: 0 magnesium oxide 400 mg magnesium Tablet 400 mg PO DAILY RF: 0 Follow up/Referrals: Claudia Miguel DO [Primary Care Provider] - Discharge Health Status Multidrug resistant organism: No MDRO Diet/Activity/Treatments Diet: Diet as Tolerated Activity: As tolerated Visit Report/Discharge Packet Instructions: Cardiac Stress Test, DI for Chest Pain, DI for Prescription Opioid Use Discharge Data Primary Care Provider: Claudia Miguel Attending Provider: Vineet Delgado VTE Deep Vein Thrombosis/Pulmonary Embolism Present on Admission: No
[2020-11-21 11:20] VITALS: BP 122/84; PULSE 68; RESP 16; TEMP 36.9; O2SAT 96
--- NOTE | 2020-11-21 12:20 | CM.IDA ---
Initial DCP Assessment Note Pt is a 60 yo female, resident of [place], patient arrives w/ rapid heart rate, admitted observation for w/u. PCP: Dr Miguel Payer: Alia Chan Reviewed chart, met w/patient this morning to introduce role. Patient is indp and active at baseline and anticipates no needs upon DC. Later heard from OPAL Moore that stress test will not be available today and patient has requested to DC home today w/f/u by Dr Miguel and outpatient stress test anticipated Wednesday 2.06.07 OPAL Moore communicating w/Dr Mgiuel's office this morning to coordinate. No needs expected from DC planning team although will remain available in case this changes today. TYSON Floyd Discharge Planning/Care Management CM Discharge Assessment Start: 11/21/20 12:14 Freq: Status: Active Protocol: Document 11/21/20 12:14 NITHIN (Rec: 11/21/20 12:20 [id number]) Discharge Planning Assessment Assigned Risk Assessment Analyst TYSON Montez DPOA/Assigned Designee Name Kareem Heaton, spouse Contact Information [phone] Advance Directives? No Advance Directives on File No History Provided By Patient,Medical Record Prior Living Arrangements House Household Members spouse Type of transporation used prior to Drives own vehicle admit Independent with ADL's Yes Is patient alert and oriented? Yes Barriers to Discharge No Discharge Plan Home Transportation Arrangement Family to provide transport home. Referrals Initiated None needed
--- NOTE | 2020-11-21 13:59 | PM.PN.1 ---
Subjective Subjective Date Patient Seen: 11/21/20 Interval history: The patient is a 60 y/o female admitted to the hospital for evaluation of chest pain. Patient describes pain in the mid chest burning in sensation from the subxiphoid area of to the mid chest. She had minimal shortness of breath with it. The patient was very concerned as her mother had hyperlipidemia and of sudden cardiac arrest at age 65. Since being in the hospital she has had no palpitations or chest pain. After discussion with the patient we elected to perform a stress test here in the hospital. Unfortunately we were unable to obtain that today and she will have a resting study tonight and follow-up study tomorrow. Exam Vital Signs (past 8 hours): - 11/21/20 07:30 11/21/20 07:52 11/21/20 11:20 Temperature 98.3 F 98.4 F Pulse Rate 66 69 68 Respiratory Rate 17 16 Blood Pressure 125/77 122/84 Pulse Oximetry 98 97 96 Oxygen Delivery Method Room Air Oxygen Flow Rate 0 Narrative Exam Narrative: Pleasant female in no obvious distress Lungs: Clear to auscultation Cardiac exam: Regular rate and rhythm normal S1-S2 Abdomen: Soft and nontender Extremities: No edema Objective Labs Result Diagrams: 11/20/20 17:55 11/21/20 05:06 Labs: Laboratory Results - last 24 hr 11/20/20 11/20/20 11/20/20 17:55 17:55 17:55 WBC 6.8 RBC 4.64 Hgb 13.7 Hct 40.4 MCV 87.0 MCH 29.5 MCHC 33.8 RDW 14.1 Plt Count 235 Neut % (Auto) 53.1 Lymph % (Auto) 34.0 [place] % (Auto) 9.6 Eos % (Auto) 1.9 L Baso % (Auto) 1.4 Neut # (Auto) 3600 Lymph # (Auto) 2300 [place] # (Auto) 700 Eos # (Auto) 100 Baso # (Auto) 100 PT 10.8 INR 0.9 APTT 31 D-Dimer Sodium 137 Potassium 3.5 Chloride 101 Carbon Dioxide 27 BUN 11 Creatinine 0.61 Estimated GFR > 60.0 BUN/Creatinine Ratio 18.0 Glucose 117 H Calcium 9.5 Magnesium Total Bilirubin 0.5 AST 27 ALT 21 Alkaline Phosphatase 46 Total Creatine Kinase 76 CK-MB (CK-2) TNP CK-MB (CK-2) Rel Index TNP Troponin I < 0.012 NT-Pro-B Natriuret Pep Total Protein 7.9 Albumin 4.5 Globulin 3.4 Albumin/Globulin Ratio 1.3 Triglycerides Cholesterol LDL Cholesterol, Calc HDL Cholesterol Lipase 224 SARS-CoV-2 (PCR) 11/20/20 11/20/20 11/20/20 17:55 17:55 23:15 WBC RBC Hgb Hct MCV MCH MCHC RDW Plt Count Neut % (Auto) Lymph % (Auto) [place] % (Auto) Eos % (Auto) Baso % (Auto) Neut # (Auto) Lymph # (Auto) [place] # (Auto) Eos # (Auto) Baso # (Auto) PT INR APTT D-Dimer < 200 Sodium Potassium Chloride Carbon Dioxide BUN Creatinine Estimated GFR BUN/Creatinine Ratio Glucose Calcium Magnesium 2.0 Total Bilirubin AST ALT Alkaline Phosphatase Total Creatine Kinase CK-MB (CK-2) CK-MB (CK-2) Rel Index Troponin I NT-Pro-B Natriuret Pep 31 Total Protein Albumin Globulin Albumin/Globulin Ratio Triglycerides Cholesterol LDL Cholesterol, Calc HDL Cholesterol Lipase SARS-CoV-2 (PCR) 11/20/20 11/21/20 11/21/20 23:15 05:06 07:00 WBC RBC Hgb Hct MCV MCH MCHC RDW Plt Count Neut % (Auto) Lymph % (Auto) [place] % (Auto) Eos % (Auto) Baso % (Auto) Neut # (Auto) Lymph # (Auto) [place] # (Auto) Eos # (Auto) Baso # (Auto) PT INR APTT D-Dimer Sodium 137 Potassium 4.0 Chloride 106 Carbon Dioxide 30 BUN 9 Creatinine 0.67 Estimated GFR > 60.0 BUN/Creatinine Ratio 13.4 Glucose 98 Calcium 9.1 Magnesium Total Bilirubin AST ALT Alkaline Phosphatase Total Creatine Kinase CK-MB (CK-2) CK-MB (CK-2) Rel Index Troponin I < 0.012 < 0.012 NT-Pro-B Natriuret Pep Total Protein Albumin Globulin Albumin/Globulin Ratio Triglycerides 258 H Cholesterol 243 H LDL Cholesterol, Calc 153 H HDL Cholesterol 38 L Lipase SARS-CoV-2 (PCR) Negative [facility] Medical History Asthma Chicken pox (~1965) Foot pain (~2015) Hay fever Hyperlipidemia Hypertension Hypothyroidism (~2012) Psoriasis (~1989) Shingles (~06/09/16) Vertigo (~2009) Surgical History Anesthesia History of eyelid surgery (~2013) History of left breast biopsy History of tonsillectomy (~1965) Status post endometrial ablation (~2006) Status post knee surgery (~2012) Family History (Updated 11/21/20 @ 00:56 by CHARLOTTE Soto) Mother Heart disease High cholesterol Mental health problem Diabetes mellitus Grandfather Stroke Grandmother Stroke Grandfather Cancer Social History household members: spouse Smoking Status: Former smoker alcohol intake: never substance use type: does not use Assessment & Plan Assessment & Plan narrative: Impression 1. Chest pain and palpitation -cardiac enzymes negative, EKG negative, no evidence of ST T wave abnormality -patient does have a heart score of 4, this is based on history of hypertension, hyperlipidemia, age, and suspicion -patient will have a resting stress test tonight and follow-up stress test tomorrow -if stress test results are negative patient to be discharged home tomorrow -will continue baby aspirin 2. Hyperlipidemia -likely familial given the patient continues to have a markedly elevated LDL -will discontinue zetia, and consider adding Lipitor at high dose 3. Hypothyroidism -continue levothyroxine Quality VTE Deep Vein Thrombosis/Pulmonary Embolism Present on Admission: No
[2020-11-21 15:48] VITALS: BP 145/89; PULSE 67; RESP 16; TEMP 36.8; O2SAT 97
--- NOTE | 2020-11-21 15:50 | PC.NURSE ---
Addendum entered by Kati Hodge R.N. 11/21/20 23:06: CHARLOTTE Delgado was made aware pt refused lipitor stating did not want to be on that medication. Addendum entered by Kati Hodge R.N. 11/21/20 20:56: Pt woken easily from sleep for hs meds. Pt refuses lipitor after explanation of order and discussion with pt. Encouraged pt to discuss with hospitalist tomorrow and pt acknowledges will do so. Denies chest pain. Offered scd's to pt for sleep and pt states preference is not to wear. Actively ankle waving and calf pumping. Addendum entered by Kati Hodge R.N. 11/21/20 19:48: Showered and up in chair for evening meal. Now in bed resting quietly without signs of distress or discomfort. Skin prep to irritated areas of skin where previous telemetry pads were in place to abdomen BL prior to putting on new pads. Original Note: Pt up in chair in room @ beginning of shift. Denies chest pain. Denies nausea. Physical assessment completed. Radiology here to take pt to department for cardiac test via wheelchair. ICU made aware as pt on telemetry.
[2020-11-21 20:52] VITALS: BP 118/73; PULSE 83; RESP 16; TEMP 36.3; O2SAT 97
[2020-11-22 00:16] VITALS: BP 124/70; PULSE 67; RESP 16; TEMP 36.9; O2SAT 99
[2020-11-22] MEDS: PANTOPRAZOLE 40 MG VIAL 20 MG IV (00:42)
[2020-11-22] MEDS: SODIUM CHLORIDE 0.9% FLUSH 10 ML IV ×2 (00:42→08:36)
[2020-11-22] MEDS: MAG HYDROX/ALUM/SIMETH 30 ML UDC PO (00:42)
--- NOTE | 2020-11-22 01:21 | PC.NURSE ---
Addendum entered by Leslie Denny R.N. 11/22/20 05:55: Correction: addendum added at 0256 was on incorrect patient. Addendum entered by Leslie Denny R.N. 11/22/20 02:56: Patient came out into shoemaker and states I have to use the bathroom. Unsteady on feet so assisted back to room and to bathroom and then back into bed. States she feels slightly dizzy. Once in bed states where are the alessia and the dog? When questioned about that states oh, I'm in the hospital. Reoriented and then agreeable to having bed alarm put on. Original Note: 8579: patient is alert and oriented. Breath sounds CTA with RA sat of 99%. HRR with telemetry reading of SR. Denies SOB or chest pain. Did complain of heartburn and slight nausea so given gingerale and [employer], Danny, informed and orders received for both Maalox and IV Protonix which were both given once orders verified by pharmacy. BT present and abdomen is soft. Denies dysuria, frequency or urgency with urination. Is independent with mobility. Denies pain. Refusing to wear SCD's so reminded to ankle wave when awake. Plan is to have second portion of stress test in the morning and then likely discharge. Fall risk score is moderate; steady on feet so alarm is not being used.
[2020-11-22 04:34] VITALS: BP 123/73; PULSE 70; RESP 16; TEMP 36.4; O2SAT 96
[2020-11-22] MEDS: PANTOPRAZOLE 40 MG TABLET PO (06:04)
[2020-11-22] MEDS: LEVOTHYROXINE 88 MCG TABLET PO (06:04)
[2020-11-22 07:30] VITALS: O2SAT 98
[2020-11-22 07:32] VITALS: BP 126/77; PULSE 69; RESP 16; TEMP 36.8; O2SAT 96
[2020-11-22] MEDS: MAGNESIUM OXIDE 400 MG TABLET PO (08:33)
[2020-11-22] MEDS: ASPIRIN EC 81 MG TABLET PO (08:33)
[2020-11-22 15:46] VITALS: BP 119/84; PULSE 77; RESP 16; TEMP 36.2; O2SAT 96
--- NOTE | 2020-11-22 17:25 | PM.DS.1 ---
History of Present Illness History of Present Illness Date Patient Seen: 11/22/20 Time Patient Seen: 17:25 Chief complaint: rapid heartrate Narrative: Per Dr. Hudson, Ms. Ewa Heaton is a 60-year-old female with past medical history significant for hypertension, hyperlipidemia, hypothyroidism, exercise-induced asthma and vertigo who presents to the ER with complaints of palpitations and episodic exertional dyspnea for 2-3 weeks. The patient reports an occasional substernal upper chest pressure with intermittent palpitations that is nonradiating and nonpleuritic that will come and go with no accessory dating or relenting factors. Upon arrival to the ER the patient reports no current complaints of chest pain or shortness of breath. She notes she will become short of breath walking down the shoemaker or up a flight of stairs but states that this is inconsistent and is different than the activity level inducing her asthma and denies complaints of cough or wheezing. She reports no complaints of lightheaded or dizziness though she does have a history of vertigo, no diaphoresis or nausea vomiting. Two days ago the patient reports posterior thigh pain that woke her from sleep that she describes as a muscle cramp with persistent soreness throughout the remainder of the day. She denies leg swelling or redness. The patient reports no recent cold or flu symptoms or known COVID-19 exposures. The patient denies nasal congestion or sore throat has persistent ear problems related to her vertigo. She denies neck pain back pain. She has no chest pain but endorses palpitations described as a flip-flop in her chest. She has shortness of breath as above denies wheezing or cough. She reports no complaints of epigastric or abdominal pain, no nausea vomiting, no diarrhea or constipation. Patient denies urinary symptoms. The patient is fully independent in all activities daily living and uses no assistive devices. Upon arrival to the ER the patient has temperature of 97.2?, heart rate of 73, blood pressure 162/94, respirations 15 saturating 94% on room air. Twelve lead EKG is obtained which finds in sinus rhythm at a rate of 70 with no ectopy, block, ST or T-wave changes no indication of infarct. The tracing is unchanged compared to prior exam. Chest x-ray finds no acute cardiopulmonary pathology. A venous Doppler is obtained which is negative for DVT. On laboratory analysis the patient has white count was 6.8, hemoglobin 13.7, hematocrit of 40.4 and platelets of 235. She has a PT of 10.7, INR 0.9, PTT of 31. D-dimer is found to be less than 200. On chemistries the patient has a borderline low potassium at 3.5 has a BUN of 11 and creatinine 0.61. Her nonfasting glucose is 117. Her liver functions are all within normal limits and she has a total CK of 76 and troponin is negative at less than 0.012. Discharge Providers Provider Date of admission: 11/20/20 21:04 Discharge Date: 11/22/20 Primary care physician: Claudia Miguel DO Consults: 11/20/20 21:44 Consult to Discharge Planning Routine Comment: Discharge provider: Vineet Diaz DO Summary Hospital Course Discharge Diagnosis: 1. Chest pain and palpitations, improved 2. Hyperlipidemia, chronic 3. Hypothyroidism, chronic 4. Hypertension, chronic Hospital Course: Ewa Heaton is a 60-year-old female with a past medical history of hyperlipidemia, hypertension, and hypothyroidism who was admitted for stress testing after episodes of chest pain and palpitations. She had no events on telemetry over the course of her stay and stress testing was ultimately performed which was deemed low risk. Echocardiogram also showed no significant wall motion abnormalities, reduced ejection fraction, or valvular pathology. No medication changes are recommended at this time. Patient should follow up with PCP if symptoms continue for further evaluation. Exam Vital Signs (past 8 hours): - 11/22/20 15:46 Temperature 97.1 F L Pulse Rate 77 Respiratory Rate 16 Blood Pressure 119/84 Pulse Oximetry 96 Oxygen Delivery Method Room Air Oxygen Flow Rate 0 Narrative Exam Narrative: Gen: Pleasant female in no obvious distress Lungs: Clear to auscultation Cardiac exam: Regular rate and rhythm normal S1-S2 Abdomen: Soft and nontender Extremities: No edema Objective Labs Result Diagrams: 11/20/20 17:55 11/21/20 05:06 [facility] Medical History Asthma Chicken pox (~1965) Foot pain (~2015) Hay fever Hyperlipidemia Hypertension Hypothyroidism (~2012) Psoriasis (~1989) Shingles (~06/09/16) Vertigo (~2009) Surgical History Anesthesia History of eyelid surgery (~2013) History of left breast biopsy History of tonsillectomy (~1965) Status post endometrial ablation (~2006) Status post knee surgery (~2012) Family History (Updated 11/21/20 @ 00:56 by CHARLOTTE Soto) Mother Heart disease High cholesterol Mental health problem Diabetes mellitus Grandfather Stroke Grandmother Stroke Grandfather Cancer Social History household members: spouse Smoking Status: Former smoker alcohol intake: never substance use type: does not use Discharge Plan Discharge Plan Patient Disposition: Home Provider Discharge Comment: You were admitted to the hospital with chest pain. Cardiac stress testing negative No medication changes are recommended at this time. Please follow up with your PCP if symptoms recur. Discharge orders & Medications Prescriptions: Continued levothyroxine 88 mcg tablet 88 mcg PO DAILY MDD 1 Qty: 90 RF: 3 hydrochlorothiazide 25 mg tablet 25 mg PO DAILY Qty: 90 RF: 3 ezetimibe [Zetia] 10 mg tablet 10 mg PO DAILY Qty: 90 RF: 2 cholecalciferol (vitamin D3) 2,000 unit capsule 5,000 unit PO DAILY RF: 0 magnesium oxide 400 mg magnesium Tablet 400 mg PO DAILY RF: 0 Follow up/Referrals: Claudia Miguel DO [Primary Care Provider] - Discharge Health Status Multidrug resistant organism: No MDRO Diet/Activity/Treatments Diet: Diet as Tolerated Activity: As tolerated Visit Report/Discharge Packet Instructions: Cardiac Stress Test, DI for Chest Pain, DI for Prescription Opioid Use Discharge Data Primary Care Provider: Claudia Miguel Attending Provider: Vineet Delgado VTE Deep Vein Thrombosis/Pulmonary Embolism Present on Admission: No
[2020-11-22 17:51] VITALS: O2SAT 98
--- NOTE | 2020-11-23 07:08 | DI.NM.S_ITS ---
DATE OF SERVICE: 11/21/2020 INDICATIONS: Chest pain with underlying hypertension, hyperlipidemia, palpitations and symptoms of shortness of breath. RADIOPHARMACEUTICAL: 25.7 millicurie technetium-99m Myoview IV was injected at stress and 22.9 millicurie of technetium-99m Myoview IV was injected at rest. CARDIAC STRESS: The patient underwent exercise perfusion study on Faisal protocol under the supervision of attending staff for about 6 minutes. She achieved 94 percent of target heart rate. There was normal blood pressure response. The patient achieved 7 METs of workload and functional aerobic impairment positive 10 percent. Baseline rhythm was sinus. During stress, there were no convincing ischemic changes. There was some nonspecific upsloping ST depression in inferolateral leads. No significant arrhythmias seen. Her oxygen saturation was 97 percent. No chest pain. Rounded breast shadow was seen. GATED STUDY: Resting LV ejection fraction of 69 and stress LV ejection fraction 76 percent. Resting end-diastolic volume 99 mL. TID ratio 0.88, which is within normal limits. Lung/heart ratio 0.24, which is within normal limits. MYOCARDIAL PERFUSION SCAN: Stress supine and resting supine images reveal small size, mildly decreased perfusion of apex, which got resolved during prone images suggestive of breast tissue attenuation artifact. CONCLUSION: I will call this study a normal myocardial perfusion study with evidence of breast tissue attenuation artifact which got resolved during prone images. Diminished exercise tolerance. Normal hemodynamic response. Preserved LF function. Overall, this is a low-risk myocardial perfusion scan. Ewa Heaton - FIORDALIZA/drew/sb doc#: [id number]/job#: [id number] dd: 11/22/2020 17:27:00 dt: 11/22/2020 17:45:00 DICTATING MD/COPIES TO: Juan Manuel Mcgrath MD COPIES MNE: LAURA;
== END 2020-11-22 17:51 | disposition home or self-care (01) ==
LOC: ED 18:19 → AC 21:05
PROVIDERS: Emergency Medicine; Admitting Provider Nurse Practitioner Adult Health; Emergency Provider Emergency Medicine; Family Provider Obstetrics & Gynecology; PCP Family Medicine; Referring Provider Emergency Medicine; Visit Provider Nurse Practitioner Adult Health
DX: R00.2 Palpitations (principal); R07.9 Chest pain, unspecified; I10 Essential (primary) hypertension; E78.5 Hyperlipidemia, unspecified; E03.9 Hypothyroidism, unspecified; J45.990 Exercise induced bronchospasm; R42 Dizziness and giddiness; Z20.822 Contact with and (suspected) exposure to COVID-19
CPT/HCPCS: 36415; 71045; 78452; 80048; 80053; 80061; 82550; 83690; 83735; 83880; 84484; 85025; 85379; 85610; 85730; 87635; 93005; 93017; 93971; 94762; 96361; 96374; 99284; C9803; G0378; A9270; A9502; C9113; J3480

== ENCOUNTER → 2021-04-16 15:36 | Outpatient (CLI) | payer OTHER, SELFPAY ==
[2020-11-20 21:52] VITALS: BMI 35.0
--- NOTE | 2021-04-16 15:38 | DI.RAD.S_ITS ---
PROCEDURE: XR KNEE LT 3V INDICATIONS: pain after injury TECHNIQUE: 33 views of the knee were acquired. COMPARISON: None. FINDINGS: Bones: No fractures or dislocations. No suspicious bony lesions. Soft tissues: Small joint effusion. No suspicious soft tissue calcifications. IMPRESSION: Small knee joint effusion. If pain persist with conservative management, consider cross-sectional imaging such as CT or MRI. Dictated by: Isai FITZGERALD Interpreted: Gil Roblero MD on 04/16/2021 at 15:58 Transcribed by: CHERRY on 04/16/2021 at 15:59 Approved by: Gil Roblero M.D. on 04/16/2021 at 18:08
== END ==
PROVIDERS: Family Provider Obstetrics & Gynecology; PCP Family Medicine; Referring Provider Nurse Practitioner Family; Visit Provider Nurse Practitioner Family
DX: M25.562 Pain in left knee (principal); M25.462 Effusion, left knee; S89.92XA Unspecified injury of left lower leg, initial encounter; X58.XXXA Exposure to other specified factors, initial encounter
CPT/HCPCS: 73562

== ENCOUNTER → 2021-05-29 09:12 | Outpatient (CLI) | payer OTHER, SELFPAY ==
[2020-11-20 21:52] VITALS: BMI 35.0
[2021-05-29 10:24] LABS: Alanine Aminotransferase 18 IU/L (<35); Albumin 3.9 g/dL (3.5-5.0); Albumin Globulin Ratio 1.3 (1.0-2.8); Alkaline Phosphatase 41 U/L (38-126); Aspartate Aminotransferase 23 IU/L (14-36); BUN Creatinine Ratio 20.5 (6-22); Bilirubin Total 0.7 mg/dL (0.2-1.3); Blood Urea Nitrogen 15 mg/dL (7-17); Calcium 9.9 mg/dL (8.4-10.2); Carbon Dioxide 28 mmol/L (22-32); Chloride 103 mmol/L (98-107); Estimated Glomerular Filt Rate > 60.0 mL/min (>60); Globulin 2.9 g/dL (1.7-4.1); Glucose 102 mg/dL (70-100); HEMOLYSIS < 15 (0-50); Sodium 138 mmol/L (137-145); Total Protein 6.8 g/dL (6.3-8.2)
== END ==
PROVIDERS: Family Provider Obstetrics & Gynecology; PCP Family Medicine; Referring Provider Family Medicine; Visit Provider Family Medicine
DX: E03.9 Hypothyroidism, unspecified (principal); E78.2 Mixed hyperlipidemia
CPT/HCPCS: 36415; 80053; 84443

== ENCOUNTER 2021-06-25 10:09 | Emergency (ER) | payer OTHER, SELFPAY ==
[2020-11-20 21:52] VITALS: BMI 35.0
[2021-06-25] VITALS (14 sets, daily range): BP systolic 128–175; BP diastolic 74–87; PULSE 60–70; RESP 12–24; TEMP 36.8; O2SAT 95–97; BMI 34.2
[2021-06-25 10:44] LABS: Add Manual Diff / Slide Review NO; Basophils Absolute Auto 100 /uL (0-100); Basophils Percent Auto 1.1 % (0-2); Eosinophils Absolute Auto 0 /uL (0-450); Eosinophils Percent Auto 0.4 % (2-4); Hematocrit 43.4 % (36-46); Hemoglobin 14.4 g/dL (12.0-16.0); Lymphocytes Absolute Auto 1100 /uL (1100-4500); Lymphocytes Percent Auto 16.4 % (25-40); Mean Corpuscular HGB Conc 33.2 % (30-36); Mean Corpuscular Hemoglobin 28.7 PG (26-34); Mean Corpuscular Volume 86.4 fL (80-100); Monocytes Absolute Auto 500 /uL (0-900); Monocytes Percent Auto 7.4 % (3-14); Neutrophils Absolute Auto 5000 /uL (1500-7000); Neutrophils Percent Auto 74.7 % (50-75); Platelet Count 242 X10^3/uL (150-400); Red Blood Cell Count 5.02 X10^6/uL (4.0-5.2); Red Cell Distribution Width 14.2 % (11.6-14.8); White Blood Cell Count 6.7 X10^3/uL (4.5-11.0)
[2021-06-25 10:52] LABS: WBC Urine None Seen (0-5/HPF)
[2021-06-25 10:53] LABS: Alanine Aminotransferase 21 IU/L (<35); Albumin 4.9 g/dL (3.5-5.0); Albumin Globulin Ratio 1.4 (1.0-2.8); Alkaline Phosphatase 54 U/L (38-126); Aspartate Aminotransferase 28 IU/L (14-36); BUN Creatinine Ratio 13.8 (6-22); Blood Urea Nitrogen 9 mg/dL (7-17); Calcium 9.7 mg/dL (8.4-10.2); Carbon Dioxide 27 mmol/L (22-32); Chloride 101 mmol/L (98-107); Estimated Glomerular Filt Rate > 60.0 mL/min (>60); Globulin 3.4 g/dL (1.7-4.1); Glucose 115 mg/dL (70-100); HEMOLYSIS < 15 (0-50); Potassium 3.5 mmol/L (3.4-5.1); Sodium 138 mmol/L (137-145); Total Protein 8.3 g/dL (6.3-8.2)
--- NOTE | 2021-06-25 10:53 | ED.GENADULT ---
HPI - General Adult General Chief complaint: Dizziness Stated complaint: Swallowing problems/Headache/Nasal Bone Pain Time Seen by Provider: 06/25/21 10:42 Source: patient Mode of arrival: Ambulatory Limitations: no limitations History of Present Illness HPI narrative: 60-year-old woman with a history of hypothyroidism, hypertension hyperlipidemia presents with a multitude of symptoms that have been present for 2 weeks. She complains of mild solid food dysphagia and this weekend actually had an episode where food got stuck in her esophagus and her use Heimlich maneuver to help did not dislodge it. She has been having aches, headaches noted some right upper quadrant dental pain with a fractured tooth an appointment to see her dentist on Wednesday. She is not actually been having fevers. She describes episodes where she will stand up too quickly she becomes clammy, sweaty, dizzy this happened once 3 nights ago and again this morning she had 2 episodes. The symptoms last for a few minutes and then resolved. At time of our discussion in the emergency department she is feeling well. She has not noticed chest pain or palpitations of any sort Related Data Home Medications Medication Instructions Recorded Confirmed cholecalciferol (vitamin D3) 50 5,000 unit PO DAILY 07/12/18 04/16/21 mcg (2,000 unit) capsule magnesium oxide 400 mg PO DAILY 11/15/18 04/16/21 ibuprofen 200 mg tablet 400 mg PO TID PRN tab 04/16/21 04/16/21 Previous Rx's Medication Instructions Recorded ezetimibe 10 mg tablet (Zetia) 10 mg PO DAILY #90 tab 10/24/20 hydrochlorothiazide 25 mg tablet 25 mg PO DAILY #90 tab 04/16/21 levothyroxine 88 mcg tablet 88 mcg PO DAILY #90 tab MDD 1 05/01/21 Allergies Allergy/AdvReac Type Severity Reaction Status Date / Time amoxicillin [AMOXICILLIN] Allergy Severe HIVES, Verified 06/25/21 10:22 ANGIOEDEMA clavulanic acid Allergy Severe HIVES, Verified 06/25/21 10:22 [CLAVULANIC ACID] ANGIOEDEMA Penicillins [PENICILLINS] Allergy Unknown Verified 06/25/21 10:22 Review of Systems Review of Systems Narrative: Remainder of complete review of systems is otherwise unremarkable except for that included in the HPI. Patient History Medical History Asthma Chicken pox (~1965) Foot pain (~2015) Hay fever Hyperlipidemia Hypertension Hypothyroidism (~2012) Left knee pain Psoriasis (~1989) Shingles (~06/09/16) Vertigo (~2009) Surgical History Anesthesia History of eyelid surgery (~2013) History of left breast biopsy History of tonsillectomy (~1965) Status post endometrial ablation (~2006) Status post knee surgery (~2012) Family History Mother Heart disease High cholesterol Mental health problem Diabetes mellitus Grandfather Stroke Grandmother Stroke Grandfather Cancer Social History household members: spouse Smoking Status: Former smoker alcohol intake: never substance use type: does not use Smoking Status: Former smoker alcohol intake frequency: holidays/special occasions only Substance Use Type: does not use Exam Narrative Exam Narrative: General: Healthy appearing, in no acute distress. Able to give a complete and coherent history. Well-nourished well-developed HEENT: Moist mucous membranes, normal sclera with reactive pupils, fractured right upper quadrant molar without drainage or swelling Neck: No JVD, supple, no cervical adenopathy Respiratory: Lungs are clear to auscultation, no wheezing no rales no rhonchi. Full and symmetrical air movement Cardiac: Regular rate and rhythm no murmurs no bruits Abdomen: Soft, nontender, good bowel tones, no flank pain Skin: Warm and dry, no rashes Neurologic: Grossly neurologically intact with no obvious asymmetries or abnormalities Extremities: No trauma, well perfused Psych: Cooperative, appropriate insight and affect Initial Vital Signs Initial Vital Signs: Vital Signs Temperature 98.3 F 06/25/21 10:15 Pulse Rate 70 06/25/21 10:15 Respiratory Rate 13 06/25/21 10:15 Blood Pressure 175/81 H 06/25/21 10:15 Pulse Oximetry 96 06/25/21 10:15 Course Orders Ordered: ED Orders 06/25/21 10:21 EKG-12 Lead Stat 06/25/21 10:26 Complete Blood Count AUTO DIFF Stat Comprehensive Metabolic Panel Stat Troponin I Stat 06/25/21 10:40 Urine Microscopic Stat 06/25/21 11:51 XR chest 1V Stat 06/25/21 11:53 COVID19 -Nasal swab/Pre-Proc Stat Sodium Chloride (Normal Saline 0.9%) 1,000 mls @ 150 mls/hr IV CONT NATHALIE Last Infusion: 06/25/21 11:51 Dose: 999 mls/hr Documented by: Admin: 06/25/21 10:55 Dose: 150 mls/hr Documented by: DIONISIO Vital Signs Vital signs: Vital Signs - 8 hr 06/25/21 10:15 06/25/21 10:16 06/25/21 10:17 Temperature 98.3 F Pulse Rate 70 69 Respiratory Rate 13 Blood Pressure 175/81 H 175/81 H Pulse Oximetry 96 96 06/25/21 10:36 06/25/21 10:37 06/25/21 10:45 Temperature Pulse Rate 68 67 62 Respiratory Rate 23 17 17 Blood Pressure 150/83 H 133/75 Pulse Oximetry 95 97 96 06/25/21 11:00 06/25/21 11:15 06/25/21 11:30 Temperature Pulse Rate 66 62 61 Respiratory Rate 24 15 Blood Pressure 140/85 135/77 132/76 Pulse Oximetry 97 95 96 06/25/21 11:45 Temperature Pulse Rate 64 Respiratory Rate 15 Blood Pressure 128/79 Pulse Oximetry 95 Medical Decision Making Lab Data Result diagrams: 06/25/21 10:26 06/25/21 10:26 Labs: Lab Results 06/25/21 06/25/21 06/25/21 Range/Units 10:26 10:26 10:40 WBC 6.7 (4.5-11.0) X10^3/uL RBC 5.02 (4.0-5.2) X10^6/uL Hgb 14.4 (12.0-16.0) g/dL Hct 43.4 (36-46) % MCV 86.4 (80-100) fL MCH 28.7 (26-34) PG MCHC 33.2 (30-36) % RDW 14.2 (11.6-14.8) % Plt Count 242 (150-400) X10^3/uL Neut % (Auto) 74.7 (50-75) % Lymph % (Auto) 16.4 L (25-40) % [place] % (Auto) 7.4 (3-14) % Eos % (Auto) 0.4 L (2-4) % Baso % (Auto) 1.1 (0-2) % Neut # (Auto) 5000 (4971-6884) /uL Lymph # (Auto) 1100 (4442-2596) /uL [place] # (Auto) 500 (0-900) /uL Eos # (Auto) 0 (0-450) /uL Baso # (Auto) 100 (0-100) /uL Sodium 138 (137-145) mmol/L Potassium 3.5 (3.4-5.1) mmol/L Chloride 101 (98-107) mmol/L Carbon Dioxide 27 (22-32) mmol/L BUN 9 (7-17) mg/dL Creatinine 0.65 (0.52-1.04) mg/dL Estimated GFR > 60.0 (>60) mL/min BUN/Creatinine Ratio 13.8 (6-22) Glucose 115 H (70-100) mg/dL Calcium 9.7 (8.4-10.2) mg/dL Total Bilirubin 1.0 (0.2-1.3) mg/dL AST 28 (14-36) IU/L ALT 21 (<35) IU/L Alkaline Phosphatase 54 (38-126) U/L Troponin I < 0.012 (0.01-0.034) ng/mL Total Protein 8.3 H (6.3-8.2) g/dL Albumin 4.9 (3.5-5.0) g/dL Globulin 3.4 (1.7-4.1) g/dL Albumin/Globulin Ratio 1.4 (1.0-2.8) Urine RBC 0-1/hpf (0-5/HPF) Urine WBC None seen (0-5/HPF) Ur Squamous Epith Cells 0-1 /hpf (0-5/HPF) Urine Bacteria Occasional (0-1) (None) Ur Culture Indicated? Cult not indicated SARS-CoV-2 (PCR) (Negative) 06/25/21 Range/Units 11:53 WBC (4.5-11.0) X10^3/uL RBC (4.0-5.2) X10^6/uL Hgb (12.0-16.0) g/dL Hct (36-46) % MCV (80-100) fL MCH (26-34) PG MCHC (30-36) % RDW (11.6-14.8) % Plt Count (150-400) X10^3/uL Neut % (Auto) (50-75) % Lymph % (Auto) (25-40) % [place] % (Auto) (3-14) % Eos % (Auto) (2-4) % Baso % (Auto) (0-2) % Neut # (Auto) (9910-4386) /uL Lymph # (Auto) (8337-2431) /uL [place] # (Auto) (0-900) /uL Eos # (Auto) (0-450) /uL Baso # (Auto) (0-100) /uL Sodium (137-145) mmol/L Potassium (3.4-5.1) mmol/L Chloride (98-107) mmol/L Carbon Dioxide (22-32) mmol/L BUN (7-17) mg/dL Creatinine (0.52-1.04) mg/dL Estimated GFR (>60) mL/min BUN/Creatinine Ratio (6-22) Glucose (70-100) mg/dL Calcium (8.4-10.2) mg/dL Total Bilirubin (0.2-1.3) mg/dL AST (14-36) IU/L ALT (<35) IU/L Alkaline Phosphatase (38-126) U/L Troponin I (0.01-0.034) ng/mL Total Protein (6.3-8.2) g/dL Albumin (3.5-5.0) g/dL Globulin (1.7-4.1) g/dL Albumin/Globulin Ratio (1.0-2.8) Urine RBC (0-5/HPF) Urine WBC (0-5/HPF) Ur Squamous Epith Cells (0-5/HPF) Urine Bacteria (None) Ur Culture Indicated? SARS-CoV-2 (PCR) Negative (Negative) Urine Dip Bedside Urine Glucose Negative Bedside Urine Bilirubin - Negative Bedside Urine Ketone - Negative Urine Specific [place] 1.010 Bedside Urine Occult Blood +/- Bedside Urine pH 6.5 Bedside Urine Protein - Negative Bedside Urine Urobilinogen - Negative Bedside Urine Nitrite - Negative Bedside Urine Leukocytes - Negative Esterase Point of care testing: Urine Dip Bedside Urine Glucose Negative Bedside Urine Bilirubin - Negative Bedside Urine Ketone - Negative Urine Specific [place] 1.010 Bedside Urine Occult Blood +/- Bedside Urine pH 6.5 Bedside Urine Protein - Negative Bedside Urine Urobilinogen - Negative Bedside Urine Nitrite - Negative Bedside Urine Leukocytes - Negative Esterase ECG Data Interpretation: Sinus rhythm at a rate of 77 No acute ischemic changes Normal intervals, normal axis MDM Narrative Medical decision making narrative: 60-year-old woman with minimal medical history presents with 2 weeks of non unifying symptoms. With the dysphagia she is going to need an outpatient swallow eval. Will refer her back to her primary care physician for this and I have discussed this with her. Regarding the 2 weeks of nonspecific symptoms and to episodes of flushing when she stands this morning, labs are reassuring with no evidence of infection, electrolyte abnormalities anemia acute coronary syndrome. Clinically there are no significant abnormalities appreciated and no clinical signs of stroke or congestive heart failure. Currently after L of fluid she is feeling somewhat improved. With no evidence of acute coronary syndrome, stroke, other infection, electrolyte or renal abnormalities, congestive heart failure or COVID I do believe she is safe for home discharge. She has had complex migraine before without significant associated headache and I am wondering if that may be a component of her presentation. All of these findings are reviewed with her, reassurance is given, questions are answered. She is safe for home discharge. Of note, as we were discussing discharge planning, she noted a flushed feeling across her face similar to the symptoms that brought her in. There is no change to heart rate, blood pressure, oxygenation no external symptoms of flushing and despite her description there was no overt sign that she was having any type of physical change. Discharge Plan Departure Patient Disposition: Home Clinical Impression: Near syncope, Dysphagia Activity Restrictions/Additional Instructions: Thank you for coming in today With a thorough workup IM able to reassure you that you are not having a stroke, heart attack, COVID, congestive heart failure, cardiac arrhythmias, electrolyte abnormalities, sepsis, or other life-threatening abnormalities. This may be an interesting complex migraine variant. Regarding your swallowing difficulty, the next step to evaluating this is a swallowing evaluation that needs to be ordered as an outpatient. Please contact Dr. Miguel regarding this If symptoms worsen or change, please feel free to return to the ER for further evaluation Prescriptions: No Action ezetimibe [Zetia] 10 mg tablet 10 mg PO DAILY Qty: 90 RF: 2 hydrochlorothiazide 25 mg tablet 25 mg PO DAILY Qty: 90 RF: 0 levothyroxine 88 mcg tablet 88 mcg PO DAILY MDD 1 Qty: 90 RF: 0 ibuprofen 200 mg tablet 400 mg PO TID PRNRF: 0 cholecalciferol (vitamin D3) 2,000 unit capsule 5,000 unit PO DAILY RF: 0 magnesium oxide 400 mg magnesium Tablet 400 mg PO DAILY RF: 0 Referrals: Claudia Miguel DO [Primary Care Provider] -
[2021-06-25] MEDS: SODIUM CHLORIDE 0.9% 1,000 ML 150 ML IV (10:55)
[2021-06-25 11:03] LABS: Troponin I < 0.012 ng/mL (0.01-0.034)
[2021-06-25 11:19] LABS: Bacteria Urine Occasional (0-1); Culture Indicated Urine Cult Not Indicated; RBC Urine 0-1/HPF (0-5/HPF); Squamous Epithelial Cell Urine 0-1 /HPF (0-5/HPF)
--- NOTE | 2021-06-25 11:51 | DI.RAD.S_ITS ---
PROCEDURE: XR CHEST 1V INDICATIONS: near syncope, dysphagia TECHNIQUE: One view of the chest was acquired. COMPARISON: [facility], CR, XR CHEST 1V, 11/20/2020, 18:10. FINDINGS: Surgical changes and devices: None. Lungs and pleura: Lungs are clear. No pleural effusions or pneumothorax. Mediastinum: Mediastinal contours appear normal. Heart size is normal. Bones and chest wall: No suspicious bony lesions. Overlying soft tissues appear unremarkable. IMPRESSION: No acute cardiopulmonary disease process. Dictated by: Elis Centeno MD, PhD on 06/25/2021 at 12:03 Approved by: Elis Centeno MD, PhD on 06/25/2021 at 12:03
[2021-06-25 12:26] LABS: COVID19 -Nasal RAPID Negative (Negative)
== END 2021-06-25 13:06 | disposition home or self-care (01) ==
PROVIDERS: Emergency Provider Emergency Medicine; Family Provider Obstetrics & Gynecology; PCP Family Medicine
DX: R55 Syncope and collapse (principal); R13.10 Dysphagia, unspecified; Z20.822 Contact with and (suspected) exposure to COVID-19
CPT/HCPCS: 36415; 71045; 80053; 81003; 81015; 84484; 85025; 87635; 93005; 96360; 96361; 99284; C9803

== ENCOUNTER → 2021-06-27 08:18 | Outpatient (CLI) | payer OTHER, SELFPAY ==
[2020-11-20 21:52] VITALS: BMI 35.0
--- NOTE | 2021-06-27 | DI.MG.S_ITS ---
BILATERAL DIGITAL SCREENING MAMMOGRAM 3D/2D WITH CAD: 06/27/2021 CLINICAL: Routine screening. Comparison is made to exams dated: 10/05/2019 mammogram, 09/29/2018 mammogram, and 09/07/2017 mammogram - [facility]. The tissue of both breasts is heterogeneously dense. This may lower the sensitivity of mammography. Current study was also evaluated with a Computer Aided Detection (CAD) system. No significant masses, calcifications, or other findings are seen in either breast. There has been no significant interval change. IMPRESSION: NEGATIVE There is no mammographic evidence of malignancy. A 1 year screening mammogram is recommended. This exam was interpreted at Station ID: [id number]. NOTE: For mammograms, a report in lay terms will be sent to the patient. Approximately 15% of breast malignancies will not be visualized mammographically. In the management of a palpable breast mass, a negative mammogram must not discourage biopsy of a clinically suspicious lesion. Electronically Signed By: Marques ryan/rishi:06/27/2021 09:42:25 copy to: Kimi Healy letter sent: Normal Exam ACR BI-RADS Category 1: Negative [id number]
== END ==
PROVIDERS: Family Provider Obstetrics & Gynecology; PCP Family Medicine; Referring Provider Family Medicine; Visit Provider Family Medicine
DX: Z12.31 Encounter for screening mammogram for malignant neoplasm of breast (principal)
CPT/HCPCS: 77063; 77067

== ENCOUNTER → 2021-07-04 09:58 | Outpatient (CLI) | payer OTHER, SELFPAY ==
[2020-11-20 21:52] VITALS: BMI 35.0
--- NOTE | 2021-07-04 10:00 | DI.RAD.S_ITS ---
PROCEDURE: FL BARIUM SWALLOW W AIR COMPARISON: None. INDICATIONS: choking on food FINDINGS: Esophagus is normal in caliber without extrinsic mass effect or focal stricture. A small sliding-type hiatal hernia is present. There is normal peristalsis with swallowing. There is normal passage of a calibrated barium tablet through the esophagus into the stomach. No elicited reflux is seen with provocative maneuvers. IMPRESSION: 1. Small hiatal hernia. 2. Otherwise, normal esophagram. Dictated by: Marques Callahan M.D. on 07/04/2021 at 11:10 Approved by: Marques Callahan M.D. on 07/04/2021 at 11:13
== END ==
PROVIDERS: Family Provider Obstetrics & Gynecology; PCP Family Medicine; Referring Provider Family Medicine; Visit Provider Family Medicine
DX: R13.10 Dysphagia, unspecified (principal); K44.9 Diaphragmatic hernia without obstruction or gangrene
CPT/HCPCS: 74221

== ENCOUNTER 2022-01-02 10:33 | Emergency (ER) | payer OTHER, SELFPAY ==
[2020-11-20 21:52] VITALS: BMI 35.0
[2022-01-02] VITALS (9 sets, daily range): BP systolic 136–184; BP diastolic 75–94; PULSE 58–71; RESP 11–19; TEMP 36.9; O2SAT 96–98; BMI 32.5
--- NOTE | 2022-01-02 10:38 | ED_ITS ---
HPI - Neuro Symptoms/Deficit General Chief Complaint: Hypertension Stated Complaint: high bp/face numbness Time Seen by Provider: 01/02/22 10:37 History of Present Illness HPI Narrative: 61-year-old female former smoker with history of hyperlipidemia presents with her for evaluation of elevated blood pressure and facial numbness. She states she went to bed in her normal state of health and woke up in her normal state of health and had a sudden an odd feeling in her neck that was closely followed by numbness of her face. She denies any headache, blurred vision or trouble with speech. She is not dizzy and denies any other focal neurologic symptoms such as extremity numbness, tingling or weakness. She has no fever chills and takes no blood thinners. She noted her blood pressure to be in the 150s over 90s on multiple checks and presented to the walk-in clinic at which point she was directed here for further evaluation. She denies any chest pain or shortness of breath. She has had no palpitations or other arrhythmia. She denies abdominal pain, nausea, vomiting, diarrhea or constipation. Related Data Home Medications Medication Instructions Recorded Confirmed cholecalciferol (vitamin D3) 50 5,000 unit PO DAILY 07/12/18 04/16/21 mcg (2,000 unit) capsule magnesium oxide 400 mg PO DAILY 11/15/18 04/16/21 ibuprofen 200 mg tablet 400 mg PO TID PRN tab 04/16/21 04/16/21 Previous Rx's Medication Instructions Recorded hydrochlorothiazide 25 mg tablet See Rx Instructions .ROUTE 07/18/21 .COMPLEX #90 tab ezetimibe 10 mg tablet (Zetia) 10 mg PO DAILY #90 tab 08/05/21 levothyroxine 88 mcg tablet 88 mcg PO DAILY #90 tab MDD 1 10/20/21 lisinopril 2.5 mg tablet 2.5 mg PO DAILY #30 tab 01/02/22 Allergies Allergy/AdvReac Type Severity Reaction Status Date / Time amoxicillin [AMOXICILLIN] Allergy Severe HIVES, Verified 01/02/22 10:48 ANGIOEDEMA clavulanic acid Allergy Severe HIVES, Verified 01/02/22 10:48 [CLAVULANIC ACID] ANGIOEDEMA Penicillins [PENICILLINS] Allergy Unknown Verified 01/02/22 10:48 Review of Systems Review of Systems Narrative: GENERAL: Denies chills, fatigue, malaise, fever, sweats. HEENT: Denies sinus pain, ear pain, sore throat, difficulty swallowing, dizziness. RESPIRATORY: Denies dyspnea, cough, wheezing, hemoptysis, sputum. CARDIOVASCULAR: Denies chest pain, palpitations, orthopnea, edema, GASTROINTESTINAL: Denies nausea, vomiting, abdominal pain, diarrhea, cons tipation, melena. : Denies dysuria, frequency, incontinence, hematuria, urinary retention. MUSCULOSKELETAL: denies weakness, joint pain, or bony pain SKIN: Denies rash, skin lesions, or other NEUROLOGIC: See HPI PSYCHIATRIC: No concerning psychosocial issues. 12 point review of systems is negative except for those stated above Patient History Medical History Asthma Chicken pox (~1965) Foot pain (~2015) Hay fever Hyperlipidemia Hypertension Hypothyroidism (~2012) Psoriasis (~1989) Sessile colonic polyp Shingles (~06/09/16) Vertigo (~2009) Surgical History Anesthesia History of eyelid surgery (~2013) History of left breast biopsy History of tonsillectomy (~1965) Status post endometrial ablation (~2006) Status post knee surgery (~2012) Family History Mother Heart disease High cholesterol Mental health problem Diabetes mellitus Grandfather Stroke Grandmother Stroke Grandfather Cancer Social History household members: spouse Smoking Status: Former smoker alcohol intake: never substance use type: does not use Smoking Status: Former smoker alcohol intake frequency: holidays/special occasions only Substance Use Type: does not use Exam Narrative Exam Narrative: GENERAL: [61] year old patient appears stated age. Well-developed patient, in mild distress. HEAD: Atraumatic. Normocephalic. EYES: Pupils equal round and reactive. Extraocular motions intact. No scleral icterus. No injection or drainage. ENT: Nose without bleeding, purulent drainage. Throat without erythema, tonsillar hypertrophy or exudate. Airway patent. NECK: Trachea midline. Non tender CARDIOVASCULAR: Regular rate and rhythm without murmurs, gallops, or rubs. RESPIRATORY: Clear to auscultation. Breath sounds equal bilaterally. No wheezes, rales, or rhonchi. GASTROINTESTINAL: Abdomen soft, non-tender, nondistended. EXTREMITIES: No edema or joint tenderness. BACK: Nontender without deformity or crepitance. No flank tenderness. NEURO: AOx3. Cranial nerves 2-12 grossly intact SKIN: No rash or erythema of visible areas Initial Vital Signs Initial Vital Signs: Vital Signs Temperature 98.4 F 01/02/22 10:40 Pulse Rate 71 01/02/22 10:40 Respiratory Rate 14 01/02/22 10:40 Blood Pressure 184/94 H 01/02/22 10:40 Pulse Oximetry 96 01/02/22 10:40 Course Orders Ordered: Discontinued Medications Sodium Chloride (Normal Saline 0.9%) 1,000 mls @ 150 mls/hr IV CONT NATHALIE Last Infusion: 01/02/22 13:23 Dose: 0 mls/hr Documented by: Admin: 01/02/22 12:26 Dose: 150 mls/hr Documented by: LORI Consultations Consultation #1: Discussed with Dr. Miguel, patient's PCP, already has an appointment next week, recommends initiation of lisinopril 2.5 mg p.o. daily until follow-up Vital Signs Vital signs: Vital Signs - 8 hr 01/02/22 10:40 01/02/22 10:43 01/02/22 11:00 Temperature 98.4 F Pulse Rate 71 69 63 Respiratory Rate 14 14 17 Blood Pressure 184/94 H Pulse Oximetry 96 97 96 01/02/22 11:30 01/02/22 12:00 01/02/22 12:03 Temperature Pulse Rate 65 62 66 Respiratory Rate 19 18 18 Blood Pressure 145/79 H Pulse Oximetry 97 98 97 01/02/22 12:30 Temperature Pulse Rate 58 L Respiratory Rate 19 Blood Pressure 145/79 H Pulse Oximetry 98 MDM - Neuro Symptoms/Deficit Lab Data Result diagrams: 01/02/22 11:03 01/02/22 11:03 Labs: Lab Results 01/02/22 01/02/22 01/02/22 Range/Units 11:03 11:03 11:03 WBC 5.4 (4.5-11.0) X10^3/uL RBC 4.72 (4.0-5.2) X10^6/uL Hgb 13.7 (12.0-16.0) g/dL Hct 40.0 (36-46) % MCV 84.8 (80-100) fL MCH 28.9 (26-34) PG MCHC 34.1 (30-36) % RDW 14.3 (11.6-14.8) % Plt Count 220 (150-400) X10^3/uL Neut % (Auto) 62.2 (50-75) % Lymph % (Auto) 26.1 (25-40) % [place] % (Auto) 8.6 (3-14) % Eos % (Auto) 1.7 L (2-4) % Baso % (Auto) 1.4 (0-2) % Neut # (Auto) 3400 (2270-7475) /uL Lymph # (Auto) 1400 (1455-9525) /uL Marin # (Auto) 500 (0-900) /uL Eos # (Auto) 100 (0-450) /uL Baso # (Auto) 100 (0-100) /uL PT 11.1 (10.1-12.7) SECONDS INR 1.0 (0.9-1.3) Sodium 139 (137-145) mmol/L Potassium 3.5 (3.4-5.1) mmol/L Chloride 103 (98-107) mmol/L Carbon Dioxide 29 (22-32) mmol/L BUN 12 (7-17) mg/dL Creatinine 0.70 (0.52-1.04) mg/dL Estimated GFR > 60.0 (>60) mL/min BUN/Creatinine Ratio 17.1 (6-22) Glucose 107 (80-110) mg/dL Calcium 9.5 (8.4-10.2) mg/dL Total Bilirubin 0.8 (0.2-1.3) mg/dL AST 24 (14-36) IU/L ALT 18 (<35) IU/L Alkaline Phosphatase 52 (38-126) U/L Total Creatine Kinase 78 (30-135) U/L CK-MB (CK-2) TNP CK-MB (CK-2) Rel Index TNP Troponin I < 0.012 (0.01-0.034) ng/mL Total Protein 8.0 (6.3-8.2) g/dL Albumin 4.7 (3.5-5.0) g/dL Globulin 3.3 (1.7-4.1) g/dL Albumin/Globulin Ratio 1.4 (1.0-2.8) Urine RBC (0-5/HPF) Urine WBC (0-5/HPF) Urine Bacteria (None) Ur Culture Indicated? Micro UA Comment U Opiates 300ng/mL cut (Negative) Ur Oxycodone Screen (Negative) Urine Methadone Screen (Negative) Ur Barbiturates Screen (Negative) U Tricyclic Antidepress (Negative) Ur Phencyclidine Scrn (Negative) Ur Amphetamines Screen (Negative) U Methamphetamines Scrn (Negative) Ur MDMA Scrn (Ecstasy) (Negative) U Benzodiazepines Scrn (Negative) Urine Cocaine Screen (Negative) U Marijuana (THC) Screen (Negative) 01/02/22 01/02/22 Range/Units 11:16 11:16 WBC (4.5-11.0) X10^3/uL RBC (4.0-5.2) X10^6/uL Hgb (12.0-16.0) g/dL Hct (36-46) % MCV (80-100) fL MCH (26-34) PG MCHC (30-36) % RDW (11.6-14.8) % Plt Count (150-400) X10^3/uL Neut % (Auto) (50-75) % Lymph % (Auto) (25-40) % [place] % (Auto) (3-14) % Eos % (Auto) (2-4) % Baso % (Auto) (0-2) % Neut # (Auto) (9777-3742) /uL Lymph # (Auto) (7021-2507) /uL Marin # (Auto) (0-900) /uL Eos # (Auto) (0-450) /uL Baso # (Auto) (0-100) /uL PT (10.1-12.7) SECONDS INR (0.9-1.3) Sodium (137-145) mmol/L Potassium (3.4-5.1) mmol/L Chloride (98-107) mmol/L Carbon Dioxide (22-32) mmol/L BUN (7-17) mg/dL Creatinine (0.52-1.04) mg/dL Estimated GFR (>60) mL/min BUN/Creatinine Ratio (6-22) Glucose (80-110) mg/dL Calcium (8.4-10.2) mg/dL Total Bilirubin (0.2-1.3) mg/dL AST (14-36) IU/L ALT (<35) IU/L Alkaline Phosphatase (38-126) U/L Total Creatine Kinase (30-135) U/L CK-MB (CK-2) CK-MB (CK-2) Rel Index Troponin I (0.01-0.034) ng/mL Total Protein (6.3-8.2) g/dL Albumin (3.5-5.0) g/dL Globulin (1.7-4.1) g/dL Albumin/Globulin Ratio (1.0-2.8) Urine RBC None seen (0-5/HPF) Urine WBC None seen (0-5/HPF) Urine Bacteria None seen (None) Ur Culture Indicated? Cult not indicated Micro UA Comment Microscopic normal U Opiates 300ng/mL cut Negative (Negative) Ur Oxycodone Screen Negative (Negative) Urine Methadone Screen Negative (Negative) Ur Barbiturates Screen Negative (Negative) U Tricyclic Antidepress Negative (Negative) Ur Phencyclidine Scrn Negative (Negative) Ur Amphetamines Screen Negative (Negative) U Methamphetamines Scrn Negative (Negative) Ur MDMA Scrn (Ecstasy) Negative (Negative) U Benzodiazepines Scrn Negative (Negative) Urine Cocaine Screen Negative (Negative) U Marijuana (THC) Screen Negative (Negative) Point of Care Testing Glucose POC 107 Urine Dip Bedside Urine Glucose Negative Bedside Urine Bilirubin - Negative Bedside Urine Ketone - Negative Urine Specific [place] 1.010 Bedside Urine Occult Blood +/- Bedside Urine pH 6.0 Bedside Urine Protein - Negative Bedside Urine Urobilinogen - Negative Bedside Urine Nitrite - Negative Bedside Urine Leukocytes - Negative Esterase Imaging Data CT scan - head: Radiologist's Impression: [address] [address] [address] Scan Report Signed Patient: Ewa Heaton MR#: [id number] : 1960 Acct:[id number] Age/Sex: 61 / F Date of Service: 01/02/22 Loc: ED Accession Number: [id number] ?? Procedure: CT head/brain wo con Ordering Provider: Bowen Luna D.O. PROCEDURE:? CT HEAD/BRAIN WO CON ? INDICATIONS:? neuro symptoms, not TPA candidate ? TECHNIQUE:? Noncontrast 4.5 mm thick angled axial sections acquired from the foramen magnum to the vertex, with coronal and sagittal reformats.? For radiation dose reduction, the following was used:? automated exposure control, adjustment of mA and/or kV according to patient size.? ? COMPARISON:? [facility], CT, CT ANGIO HEAD AND NECK, 01/02/2022, 11:03.? [facility], CT, CT HEAD/BRAIN WO CON, 11/15/2018, 12:25. ? FINDINGS:? Image quality:? Excellent.? ? CSF spaces:? Basal cisterns are patent.? No extra-axial fluid collections.? Ventricles are normal in size and shape.? ? Brain:? No intracranial hemorrhage, mass, or mass effect.? Moore-white matter interface appears preserved.? ? Skull and face:? Calvarium and visualized facial bones are intact, without suspicious lesions.? ? Sinuses:? Visualized sinuses and mastoids are clear.? ? IMPRESSION:? ? 1. No acute intracranial abnormality.? ? ? Dictated by: Alexis Ozuna M.D. on 01/02/2022 at 11:41 ? ? Approved by: Alexis Ozuna M.D. on 01/02/2022 at 11:42? CTA Head/Neck: Radiologist's Impression: [facility]?[place] [address] CT Scan Report Signed Patient: Ewa Heaton MR#: [id number] : 1960 Acct:[id number] Age/Sex: 61 / F Date of Service: 01/02/22 Loc: ED Accession Number: [id number] ?? Procedure: CT angio head and neck Ordering Provider: Bowen Luna D.O. PROCEDURE:? CT ANGIO HEAD AND NECK ? INDICATIONS:? stroke symptoms ? TECHNIQUE:? After the administration of intravenous contrast, 1 mm thick sections acquired from the aortic arch through the [place] of [place].? Post-contrast 4.5 mm thick sections then re-acquired from the foramen magnum to the vertex.? 3-dimensional lieyknl-apnjmnpdk-ktpfvcphxn (MIP) and/or volume rendering reformats were acquired of the central intracranial vasculature and neck separately. ? COMPARISON:? [facility], CT, CT HEAD/BRAIN WO CON, 11/15/2018, 12:25.? [facility], CT, CT HEAD/BRAIN WO CON, 01/02/2022, 11:03. ? FINDINGS:? Image quality:? Excellent.? ? BRAIN:? CSF spaces:? Basal cisterns are patent.? No extra-axial fluid collections.? Ve ntricles are normal in size and shape.? ? Brain:? No intracranial hematoma collections, mass, or mass effect.? Moore-white matter interface appears preserved.? No abnormal intracranial enhancement.? ? Skull and face:? Calvarium and facial bones appear intact, without suspicious lesions.? Orbits appear normal.? ? Sinuses:? Sinuses and mastoids are clear.? ? HEAD CT ANGIOGRAPHY:? Anterior circulation:? Intracranial internal carotid arteries are normal in size and appear patent bilaterally.? There is mild atherosclerotic calcification along the cavernous segments of the internal carotid arteries.? The paired anterior cerebral arteries appear patent bilaterally.? The anterior communicating artery also appears patent. The middle cerebral arteries appear patent bilaterally.? No high-grade stenosis, occlusion, or filling defects.? No cerebral aneurysms identified. ? Posterior circulation:? Visualized portions of the vertebral arteries demonstrate normal caliber, and join to form a patent basilar artery.? The posterior cerebral arteries appears patent bilaterally.? There are bilateral posterior communicating arteries which appear patent.? No high-grade stenosis, occlusion, or filling defects.? No cerebral aneurysms identified. ? NECK CT ANGIOGRAPHY:? Carotid system:? The great vessels demonstrate a conventional anatomy as they arise from the aortic arch.? The origins of the common carotid arteries appear patent.? The common carotid arteries demonstrate normal caliber and courses.? There is mild partially calcified plaque within the distal left carotid bulb with minimal narrowing of less than 50%.? There is also minimal narrowing in the proximal right carotid bulb.? The internal carotid arteries demonstrate normal calibers and courses.? ? Posterior circulation:? The origins of the vertebral arteries both appear patent.? The more superior extracranial portions of both vertebral arteries also demonstrate normal courses and calibers.? They join to form a patent basilar artery.? ? Soft tissues:? Visualized neck soft tissues demonstrate no suspicious abnormalities.? ? Bones:? No suspicious bony lesions.? Visualized cervical spine demonstrates mild reversal of the cervical lordosis centered at C3-C4.? There is minimal anterolisthesis at C2-C3. ? ? IMPRESSION:? ? 1. No high-grade stenosis or occlusion of the central intracranial arteries. ? 2. No high-grade stenosis or occlusion of the head and neck arteries.? There is minimal narrowing in the carotid bulbs bilaterally.? ? Any quantitative measurements of stenosis were performed using NASCET criteria.? ? ? Dictated by: Alexis Ozuna M.D. on 01/02/2022 at 11:43 ? ? Approved by: Alexis Ozuna M.D. on 01/02/2022 at 12:02 ? MDM Narrative Medical decision making narrative: patient presents with elevated blood pressure and facial numbness that seemed to start after feeling a pinch if not a pop in her neck. Remainder of neurologic exam is quite reassuring. There is some concern for vascular abnormality such as aneurysmal leak or dissection hence decision to perform events imaging, thankfully there is no significant abnormality noted. Over the course of the visit her blood pressure gradually improves and her symptoms resolved with this. She has appointment with her PCP range, antihypertensive prescription sent to her pharmacy, return precautions discussed and questions have been answered to her apparent satisfaction Discharge Plan Departure Patient Disposition: Home Clinical Impression: Hypertension Instructions: DI for High Blood Pressure Activity Restrictions/Additional Instructions: *You have been diagnosed with [facial numbness as a consequence of elevated blood pressure. As we discussed your labs, imaging and improved symptoms with improved blood pressure are very reassuring *What to do: *Please continue to take your regular medications as directed. [ x] New medication prescriptions sent to your pharmacy: [[facility] ] [ ] New medication written as a paper prescription [ ] No new medications given *Please follow up with your primary care provider on Wednesday as planned. I have spoken with Dr. Miguel and she'd like me to start a small dose of a blood pressure medicine to start prior to your appointment *Return to Emergency Department if you should have any new, worsening or concerning symptoms, such as [fever greater than 101 F, shaking chills, worsening pain, persistent vomiting or other bothersome symptoms] Prescriptions: New lisinopril 2.5 mg tablet 2.5 mg PO DAILY Qty: 30 0RF No Action hydrochlorothiazide 25 mg tablet See Rx Instructions .ROUTE .COMPLEX Qty: 90 3RF Dose Instruction: Take 1 tablet by mouth once daily Rx Instructions: Take 1 tablet by mouth once daily ezetimibe [Zetia] 10 mg tablet 10 mg PO DAILY Qty: 90 2RF levothyroxine 88 mcg tablet 88 mcg PO DAILY MDD 1 Qty: 90 2RF Rx Instructions: Please schedule annual appointment for further refills ibuprofen 200 mg tablet 400 mg PO TID PRN0RF cholecalciferol (vitamin D3) 2,000 unit capsule 5,000 unit PO DAILY 0RF magnesium oxide 400 mg magnesium Tablet 400 mg PO DAILY 0RF Referrals: Claudia Miguel DO [Primary Care Provider] -
--- NOTE | 2022-01-02 10:51 | DI.CT.S_ITS ---
PROCEDURE: CT ANGIO HEAD AND NECK INDICATIONS: stroke symptoms TECHNIQUE: After the administration of intravenous contrast, 1 mm thick sections acquired from the aortic arch through the [place] of [place]. Post-contrast 4.5 mm thick sections then re-acquired from the foramen magnum to the vertex. 3-dimensional myohvze-jxdpmegzy-dobutlxazh (MIP) and/or volume rendering reformats were acquired of the central intracranial vasculature and neck separately. COMPARISON: [facility], CT, CT HEAD/BRAIN WO CON, 11/15/2018, 12:25. [facility], CT, CT HEAD/BRAIN WO CON, 01/02/2022, 11:03. FINDINGS: Image quality: Excellent. BRAIN: CSF spaces: Basal cisterns are patent. No extra-axial fluid collections. Ventricles are normal in size and shape. Brain: No intracranial hematoma collections, mass, or mass effect. Moore-white matter interface appears preserved. No abnormal intracranial enhancement. Skull and face: Calvarium and facial bones appear intact, without suspicious lesions. Orbits appear normal. Sinuses: Sinuses and mastoids are clear. HEAD CT ANGIOGRAPHY: Anterior circulation: Intracranial internal carotid arteries are normal in size and appear patent bilaterally. There is mild atherosclerotic calcification along the cavernous segments of the internal carotid arteries. The paired anterior cerebral arteries appear patent bilaterally. The anterior communicating artery also appears patent. The middle cerebral arteries appear patent bilaterally. No high-grade stenosis, occlusion, or filling defects. No cerebral aneurysms identified. Posterior circulation: Visualized portions of the vertebral arteries demonstrate normal caliber, and join to form a patent basilar artery. The posterior cerebral arteries appears patent bilaterally. There are bilateral posterior communicating arteries which appear patent. No high-grade stenosis, occlusion, or filling defects. No cerebral aneurysms identified. NECK CT ANGIOGRAPHY: Carotid system: The great vessels demonstrate a conventional anatomy as they arise from the aortic arch. The origins of the common carotid arteries appear patent. The common carotid arteries demonstrate normal caliber and courses. There is mild partially calcified plaque within the distal left carotid bulb with minimal narrowing of less than 50%. There is also minimal narrowing in the proximal right carotid bulb. The internal carotid arteries demonstrate normal calibers and courses. Posterior circulation: The origins of the vertebral arteries both appear patent. The more superior extracranial portions of both vertebral arteries also demonstrate normal courses and calibers. They join to form a patent basilar artery. Soft tissues: Visualized neck soft tissues demonstrate no suspicious abnormalities. Bones: No suspicious bony lesions. Visualized cervical spine demonstrates mild reversal of the cervical lordosis centered at C3-C4. There is minimal anterolisthesis at C2-C3. IMPRESSION: 1. No high-grade stenosis or occlusion of the central intracranial arteries. 2. No high-grade stenosis or occlusion of the head and neck arteries. There is minimal narrowing in the carotid bulbs bilaterally. Any quantitative measurements of stenosis were performed using NASCET criteria. Dictated by: Alexis Ozuna M.D. on 01/02/2022 at 11:43 Approved by: Alexis Ozuna M.D. on 01/02/2022 at 12:02
--- NOTE | 2022-01-02 10:59 | DI.CT.S_ITS ---
PROCEDURE: CT HEAD/BRAIN WO CON INDICATIONS: neuro symptoms, not TPA candidate TECHNIQUE: Noncontrast 4.5 mm thick angled axial sections acquired from the foramen magnum to the vertex, with coronal and sagittal reformats. For radiation dose reduction, the following was used: automated exposure control, adjustment of mA and/or kV according to patient size. COMPARISON: [facility], CT, CT ANGIO HEAD AND NECK, 01/02/2022, 11:03. [facility], CT, CT HEAD/BRAIN WO CON, 11/15/2018, 12:25. FINDINGS: Image quality: Excellent. CSF spaces: Basal cisterns are patent. No extra-axial fluid collections. Ventricles are normal in size and shape. Brain: No intracranial hemorrhage, mass, or mass effect. Moore-white matter interface appears preserved. Skull and face: Calvarium and visualized facial bones are intact, without suspicious lesions. Sinuses: Visualized sinuses and mastoids are clear. IMPRESSION: 1. No acute intracranial abnormality. Dictated by: Alexis Ozuna M.D. on 01/02/2022 at 11:41 Approved by: Alexis Ozuna M.D. on 01/02/2022 at 11:42
[2022-01-02 11:18] LABS: Prothrombin Time 11.1 SECONDS (10.1-12.7)
[2022-01-02 11:21] LABS: Add Manual Diff / Slide Review NO; Basophils Absolute Auto 100 /uL (0-100); Basophils Percent Auto 1.4 % (0-2); Eosinophils Absolute Auto 100 /uL (0-450); Eosinophils Percent Auto 1.7 % (2-4); Hemoglobin 13.7 g/dL (12.0-16.0); Lymphocytes Absolute Auto 1400 /uL (1100-4500); Lymphocytes Percent Auto 26.1 % (25-40); Mean Corpuscular HGB Conc 34.1 % (30-36); Mean Corpuscular Hemoglobin 28.9 PG (26-34); Mean Corpuscular Volume 84.8 fL (80-100); Monocytes Absolute Auto 500 /uL (0-900); Monocytes Percent Auto 8.6 % (3-14); Neutrophils Absolute Auto 3400 /uL (1500-7000); Neutrophils Percent Auto 62.2 % (50-75); Platelet Count 220 X10^3/uL (150-400); Red Blood Cell Count 4.72 X10^6/uL (4.0-5.2); Red Cell Distribution Width 14.3 % (11.6-14.8); White Blood Cell Count 5.4 X10^3/uL (4.5-11.0)
[2022-01-02 11:23] LABS: Alanine Aminotransferase 18 IU/L (<35); Albumin 4.7 g/dL (3.5-5.0); Albumin Globulin Ratio 1.4 (1.0-2.8); Alkaline Phosphatase 52 U/L (38-126); Aspartate Aminotransferase 24 IU/L (14-36); BUN Creatinine Ratio 17.1 (6-22); Bilirubin Total 0.8 mg/dL (0.2-1.3); Blood Urea Nitrogen 12 mg/dL (7-17); Calcium 9.5 mg/dL (8.4-10.2); Carbon Dioxide 29 mmol/L (22-32); Chloride 103 mmol/L (98-107); Creatine Kinase 78 U/L (30-135); Estimated Glomerular Filt Rate > 60.0 mL/min (>60); Globulin 3.3 g/dL (1.7-4.1); Glucose 107 mg/dL (80-110); HEMOLYSIS < 15 (0-50); Potassium 3.5 mmol/L (3.4-5.1); Sodium 139 mmol/L (137-145)
[2022-01-02 11:32] LABS: UR Morphine/Opiate cutoff 300 Negative (Negative); Ur Creatinine Normal (Normal); Ur Specific Gravity Normal (Normal); Urine Amphetamines Negative (Negative); Urine Barbiturates Negative (Negative); Urine Benzodiazepines Negative (Negative); Urine Cocaine Negative (Negative); Urine MDMA Negative (Negative); Urine Methadone Negative (Negative); Urine Methamphetamines Negative (Negative); Urine Oxycodone Negative (Negative); Urine Phencyclidine Negative (Negative); Urine Tetrahydrocannabinol Negative (Negative); Urine Tricyclic Antidepressant Negative (Negative); Urine pH Normal (Normal)
[2022-01-02 11:33] LABS: Bacteria Urine None Seen; Culture Indicated Urine Cult Not Indicated; RBC Urine None Seen (0-5/HPF); Urine Comments Microscopic Normal; WBC Urine None Seen (0-5/HPF)
[2022-01-02 11:34] LABS: Troponin I < 0.012 ng/mL (0.01-0.034)
[2022-01-02] MEDS: SODIUM CHLORIDE 0.9% 1,000 ML 150 ML IV (12:26)
== END 2022-01-02 13:26 | disposition home or self-care (01) ==
PROVIDERS: Emergency Provider Emergency Medicine; Family Provider Obstetrics & Gynecology; PCP Family Medicine
DX: I10 Essential (primary) hypertension (principal); Z87.891 Personal history of nicotine dependence
CPT/HCPCS: 36415; 70450; 70496; 70498; 80053; 80305; 81003; 81015; 82550; 82962; 84484; 85025; 85610; 93005; 93010; 96360; 99284; 99285

== ENCOUNTER → 2022-07-16 09:54 | Outpatient (CLI) | payer OTHER, SELFPAY ==
[2020-11-20 21:52] VITALS: BMI 35.0
--- NOTE | 2022-07-16 | DI.MG.S_ITS ---
BILATERAL DIGITAL SCREENING MAMMOGRAM 3D/2D WITH CAD: 07/16/2022 CLINICAL: Routine screening. Comparison is made to exams dated: 06/27/2021 mammogram, 10/05/2019 mammogram, and 09/29/2018 mammogram - [facility]. Both breasts are heterogeneously dense, which may obscure small masses (category c / 51-75% glandular tissue). Current study was also evaluated with a Computer Aided Detection (CAD) system. No significant masses, calcifications, or other findings are seen in either breast. There has been no significant interval change. IMPRESSION: NEGATIVE There is no mammographic evidence of malignancy. A 1 year screening mammogram is recommended. Based on the Tyrer Cuzick model (a risk assessment model) the patient's lifetime risk is 7.9% and her 10 year risk is 3.2%. According to the ACR, ACS, and NCCN guidelines, an annual breast MRI exam along with mammogram is recommended if the patient's lifetime risk is 20% or greater. This exam was interpreted at Station ID: [id number]. NOTE: For mammograms, a report in lay terms will be sent to the patient. Approximately 15% of breast malignancies will not be visualized mammographically. In the management of a palpable breast mass, a negative mammogram must not discourage biopsy of a clinically suspicious lesion. Electronically Signed By: Vikram fang/rishi:07/16/2022 12:16:42 copy to: Kimi Healy letter sent: Normal Exam ACR BI-RADS Category 1: Negative [id number]
== END ==
PROVIDERS: Family Provider Obstetrics & Gynecology; PCP Family Medicine; Referring Provider Family Medicine; Visit Provider Family Medicine
DX: Z12.31 Encounter for screening mammogram for malignant neoplasm of breast (principal)
CPT/HCPCS: 77063; 77067

== ENCOUNTER → 2022-07-17 07:02 | Outpatient (CLI) | payer OTHER, SELFPAY ==
[2020-11-20 21:52] VITALS: BMI 35.0
[2022-07-17 09:08] LABS: Alanine Aminotransferase 14 IU/L (<35); Albumin 4.1 g/dL (3.5-5.0); Albumin Globulin Ratio 1.5 (1.0-2.8); Alkaline Phosphatase 36 U/L (38-126); Aspartate Aminotransferase 21 IU/L (14-36); BUN Creatinine Ratio 23.9 (6-22); Bilirubin Total 0.6 mg/dL (0.2-1.3); Blood Urea Nitrogen 17 mg/dL (7-17); Carbon Dioxide 30 mmol/L (22-32); Chloride 101 mmol/L (98-107); Cholesterol 216 mg/dL (140-199); Estimated Glomerular Filt Rate > 60 mL/min (>60); Globulin 2.7 g/dL (1.7-4.1); Glucose 90 mg/dL (80-110); HDL Cholesterol 47 mg/dL (40-60); HEMOLYSIS < 15 (0-50); LDL Cholesterol Calculated 140 mg/dL (<100); Sodium 140 mmol/L (137-145); Total Protein 6.8 g/dL (6.3-8.2); Triglycerides 146 mg/dL (35-150)
[2022-07-17 09:39] LABS: Thyroid Stimulating Hormone 1.24 uIU/mL (0.47-4.68)
== END ==
PROVIDERS: Family Provider Obstetrics & Gynecology; PCP Family Medicine; Referring Provider Family Medicine; Visit Provider Family Medicine
DX: E03.9 Hypothyroidism, unspecified (principal); E78.2 Mixed hyperlipidemia; I10 Essential (primary) hypertension
CPT/HCPCS: 36415; 80053; 80061; 84443

== ENCOUNTER 2023-02-25 11:59 | Day surgery (SDC) | payer OTHER, SELFPAY ==
[2020-11-20 21:52] VITALS: BMI 35.0
--- NOTE | 2023-02-25 | PATH_ITS ---
[facility] Accession Number: [id number] No. of containers..01 Tissue . 01 Material submitted: . sigmoid colon - SIGMOID POLYP . 01 Diagnosis: Sigmoid Colon, Polyp, Biopsy: Hyperplastic polyp. [facility] 03/02/2023 1512 Local . 01 Electronically signed: . Ann Marie Zamora MD, Pathologist NPI- [id number] . 01 Gross description: . SIGMOID POLYP: Received in formalin are multiple fragment(s) of lynch, soft tissue measuring 2.0 x 0.4 x 0.2 cm in aggregate which is submitted entirely in 1 cassette(s) /[facility] 02/26/2023 1336 Local . 01 Pathologist provided ICD-10: K63.5 . 01 CPT . 482731 Specimen Comment: A courtesy copy of this report has been sent to [phone] Performed at: 01 [facility] [address] [place] [address], [place], [place] [id number] MD Alexis Wills MD Phone: [phone]
[2023-02-25 12:14] VITALS: BP 139/74; PULSE 79; RESP 16; TEMP 36.7; O2SAT 96; BMI 32.5
--- NOTE | 2023-02-25 13:11 | PM.HP.1 ---
History of Present Illness History of Present Illness Date Patient Seen: 02/25/23 Time Patient Seen: 13:11 Chief complaint: [facility] Narrative: Ewa is a 62-year-old woman who is here for colonoscopy. Her last 1 was about 5 years ago and she thinks some polyps were removed. A family history of colon cancer [facility] Medical History Asthma Chicken pox (~1965) Foot pain (~2015) Hay fever Hyperlipidemia Hypertension Hypothyroidism (~2012) Psoriasis (~1989) Sessile colonic polyp Shingles (~06/09/16) Vertigo (~2009) Surgical History Anesthesia History of eyelid surgery (~2013) History of left breast biopsy History of tonsillectomy (~1965) Status post endometrial ablation (~2006) Status post knee surgery (~2012) Family History Mother Heart disease High cholesterol Mental health problem Diabetes mellitus Grandfather Stroke Grandmother Stroke Grandfather Cancer Social History household members: spouse Smoking Status: Former smoker alcohol intake: never substance use type: does not use Meds Home Medications and Allergies Home Medications Medication Instructions Recorded Confirmed Type cholecalciferol (vitamin D3) 50 5,000 unit PO DAILY 07/12/18 02/09/23 History mcg (2,000 unit) capsule magnesium oxide 400 mg PO DAILY 11/15/18 02/25/23 History ezetimibe 10 mg tablet (Zetia) 10 mg PO DAILY #90 tabs 07/23/22 02/25/23 Rx hydrochlorothiazide 25 mg tablet See Rx Instructions .Route 10/01/22 02/25/23 Rx .COMPLEX #90 tabs levothyroxine 88 mcg tablet 88 mcg PO DAILY 12/31/22 02/25/23 History pantoprazole 20 mg tablet,delayed See Rx Instructions .Route 02/10/23 02/25/23 Rx release .COMPLEX #90 tabs Allergies Allergy/AdvReac Type Severity Reaction Status Date / Time amoxicillin [AMOXICILLIN] Allergy Severe HIVES, Verified 02/25/23 12:10 ANGIOEDEMA clavulanic acid Allergy Severe HIVES, Verified 02/25/23 12:10 [CLAVULANIC ACID] ANGIOEDEMA Penicillins [PENICILLINS] Allergy Unknown Verified 02/25/23 12:10 Exam Vital Signs (past 8 hours): - 02/25/23 12:14 Temperature 98.1 F Pulse Rate 79 Respiratory Rate 16 Blood Pressure 139/74 Pulse Oximetry 96 Oxygen Delivery Method Room Air Oxygen Delivery Method Room Air Const General: healthy appearing Assessment & Plan Assessment and plan (1) Personal history of colonic polyps: Status: Acute Plan Ewa is a 62-year-old woman with a history of colon polyps. We reviewed the risks and benefits of colonoscopy and she would like to proceed.
--- NOTE | 2023-02-25 13:59 | PM.OP.COLON ---
Operative Date/Time/Diagnoses Date of procedure: 02/25/23 Time of procedure: 13:59 Pre-op diagnosis: History of polyps Post-op diagnosis: same Procedure & Clinicians Study performed: Colonoscopy Same procedure as scheduled: Yes Surgeon: Russel Smalls Procedure Notes Procedure in detail: Surgeon: Russel Smalls MD Anesthesia: Skyler Mike MD Procedure: The patient was brought to the endoscopy suite, placed in left lateral decubitus position. The patient was connected to monitoring devices. A time-out was performed. Sedation was administered. Once the patient was adequately sedated, a digital rectal exam was performed and was normal. The scope was then inserted and advanced to the cecum. Getting to the cecum was rather difficult due to the tortuosity of her colon however with abdominal pressure, stiffening of the scope and positional change we were eventually able to reach cecum where the appendiceal orifice was identified photographed. The scope was then slowly withdrawn over greater than 6 minutes. The mucosa was thoroughly inspected. There were 2 small polyps, each about 5 mm in the distal sigmoid colon removed with a cold snare. The scope was retroflexed in the rectum. Other abnormalities were seen The scope was straightened and removed. The patient was awakened and brought to recovery. Scope withdrawal time: 10 minutes Sedation time: 33 minutes EBL: 2 mL Findings: 2 5 mm polyps in the distal sigmoid colon Post-procedure Disposition: PACU
[2023-02-25 14:01] VITALS: BP 136/82; PULSE 71; RESP 14; TEMP 36.7; O2SAT 95
[2023-02-25 14:06] VITALS: BP 128/80; PULSE 67; RESP 18; O2SAT 96
[2023-02-25 14:11] VITALS: BP 138/88; PULSE 67; RESP 12; TEMP 36.3; O2SAT 97
[2023-02-25 14:18] VITALS: BP 134/83; PULSE 67; RESP 12; TEMP 36.3; O2SAT 99
== END 2023-02-25 14:29 | disposition home or self-care (01) ==
PROVIDERS: Family Provider Obstetrics & Gynecology; PCP Family Medicine; Referring Provider Surgery; Visit Provider Surgery
PROC: 0DJD8ZZ Inspection of Lower Intestinal Tract, Via Natural or Artificial Opening Endoscopic (ICD-10-PCS; CPT 45378; principal; 2023-02-25 13:15)
DX: Z12.11 Encounter for screening for malignant neoplasm of colon (principal); Z86.010 Personal history of colon polyps; K63.5 Polyp of colon
CPT/HCPCS: 45385; J2704; J3010

== ENCOUNTER → 2023-10-23 07:58 | Outpatient (CLI) | payer OTHER, SELFPAY ==
[2020-11-20 21:52] VITALS: BMI 35.0
--- NOTE | 2023-10-23 | DI.MG.S_ITS ---
BILATERAL DIGITAL SCREENING MAMMOGRAM 3D/2D WITH CAD: 10/23/2023 CLINICAL: Routine screening. Comparison is made to exams dated: 07/16/2022 mammogram, 06/27/2021 mammogram, and 10/05/2019 mammogram - [facility]. Both breasts are heterogeneously dense, which may obscure small masses (category c / 51-75% glandular tissue). Current study was also evaluated with a Computer Aided Detection (CAD) system. No significant masses, calcifications, or other findings are seen in either breast. There has been no significant interval change. IMPRESSION: NEGATIVE There is no mammographic evidence of malignancy. A 1 year screening mammogram is recommended. Based on the Tyrer Cuzick model (a risk assessment model) the patient's lifetime risk is 7.5% and her 10 year risk is 3.2%. According to the ACR, ACS, and NCCN guidelines, an annual breast MRI exam along with mammogram is recommended if the patient's lifetime risk is 20% or greater. This exam was interpreted at Station ID: [id number]. NOTE: For mammograms, a report in lay terms will be sent to the patient. Approximately 15% of breast malignancies will not be visualized mammographically. In the management of a palpable breast mass, a negative mammogram must not discourage biopsy of a clinically suspicious lesion. Electronically Signed By: Skyler ochoa/rishi:10/25/2023 07:39:01 copy to: Kimi Healy letter sent: Normal Exam ACR BI-RADS Category 1: Negative [id number]
== END ==
LOC: MAMMO 07:59
PROVIDERS: PCP Family Medicine; Referring Provider Family Medicine; Visit Provider Family Medicine
DX: Z12.31 Encounter for screening mammogram for malignant neoplasm of breast (principal); R92.333 Mammographic heterogeneous density, bilateral breasts
CPT/HCPCS: 77063; 77067

== ENCOUNTER → 2023-12-02 07:22 | Outpatient (CLI) | payer OTHER, SELFPAY ==
[2020-11-20 21:52] VITALS: BMI 35.0
[2023-12-02 07:55] LABS: Hemoglobin A1C% w Est Avg Glu 5.6 % (4.0-6.0)
[2023-12-02 08:08] LABS: HEMOLYSIS < 15 (0-50)
[2023-12-02 08:14] LABS: Alanine Aminotransferase 18 IU/L (<35); Albumin 4.3 g/dL (3.5-5.0); Albumin Globulin Ratio 1.4 (1.0-2.8); Alkaline Phosphatase 47 U/L (38-126); Aspartate Aminotransferase 25 IU/L (14-36); BUN Creatinine Ratio 23.4 (6-22); Bilirubin Total 0.8 mg/dL (0.2-1.3); Blood Urea Nitrogen 15 mg/dL (7-17); Calcium 9.5 mg/dL (8.4-10.2); Carbon Dioxide 25 mmol/L (22-32); Chloride 102 mmol/L (98-107); Cholesterol 241 mg/dL (140-199); Estimated Glomerular Filt Rate > 60 mL/min (>60); Globulin 3.1 g/dL (1.7-4.1); Glucose 101 mg/dL (80-110); HDL Cholesterol 49 mg/dL (40-60); LDL Cholesterol Calculated 151 mg/dL (<100); Potassium 4.1 mmol/L (3.4-5.1); Sodium 139 mmol/L (137-145); Total Protein 7.4 g/dL (6.3-8.2); Triglycerides 203 mg/dL (35-150)
[2023-12-02 08:31] LABS: Vitamin D 25 Hydroxy (D3) 56.3 ng/mL (30.0-100.0)
[2023-12-02 08:56] LABS: TSH w/ Reflex to FT4 1.44 uIU/mL (0.47-4.68)
[2023-12-05 05:51] LABS: Insulin Level Total 10.8 uIU/mL (2.6-24.9)
== END ==
PROVIDERS: PCP Family Medicine; Referring Provider Family Medicine; Visit Provider Family Medicine
DX: Z00.00 Encounter for general adult medical examination without abnormal findings (principal); E78.2 Mixed hyperlipidemia; E03.9 Hypothyroidism, unspecified; E88.810 Metabolic syndrome; E66.9 Obesity, unspecified; E55.9 Vitamin D deficiency, unspecified
CPT/HCPCS: 36415; 80053; 80061; 82306; 83036; 83525; 84443; 86141

== ENCOUNTER → 2024-04-04 06:49 | Outpatient (CLI) | payer OTHER, SELFPAY ==
[2020-11-20 21:52] VITALS: BMI 35.0
[2024-04-04 09:02] LABS: Alanine Aminotransferase 16 IU/L (<35); Albumin 4.2 g/dL (3.5-5.0); Albumin Globulin Ratio 1.5 (1.0-2.8); Alkaline Phosphatase 45 U/L (38-126); Aspartate Aminotransferase 26 IU/L (14-36); BUN Creatinine Ratio 20.3 (6-22); Bilirubin Total 0.9 mg/dL (0.2-1.3); Blood Urea Nitrogen 14 mg/dL (7-17); Calcium 9.1 mg/dL (8.4-10.2); Carbon Dioxide 30 mmol/L (22-32); Chloride 104 mmol/L (98-107); Cholesterol 242 mg/dL (140-199); Estimated Glomerular Filt Rate > 60 mL/min (>60); Globulin 2.8 g/dL (1.7-4.1); Glucose 95 mg/dL (80-110); HDL Cholesterol 45 mg/dL (40-60); HEMOLYSIS < 15 (0-50); LDL Cholesterol Calculated 141 mg/dL (<100); Potassium 4.1 mmol/L (3.4-5.1); Sodium 138 mmol/L (137-145); Triglycerides 281 mg/dL (35-150)
[2024-04-04 09:04] LABS: Hemoglobin A1C% w Est Avg Glu 5.6 % (4.0-6.0)
[2024-04-04 09:09] LABS: High Sensitivity CRP - Cardiac 0.7 mg/L (1.0-3.0)
== END ==
PROVIDERS: PCP Family Medicine; Referring Provider Family Medicine; Visit Provider Family Medicine
DX: E88.810 Metabolic syndrome (principal); E66.9 Obesity, unspecified; E55.9 Vitamin D deficiency, unspecified; I10 Essential (primary) hypertension; E78.2 Mixed hyperlipidemia; R73.9 Hyperglycemia, unspecified; E03.9 Hypothyroidism, unspecified
CPT/HCPCS: 36415; 80053; 80061; 83036; 83525; 86140

== ENCOUNTER → 2024-08-22 07:45 | Outpatient (CLI) | payer OTHER, SELFPAY ==
[2020-11-20 21:52] VITALS: BMI 35.0
[2024-08-22 08:38] LABS: Add Manual Diff / Slide Review NO; Basophils Absolute Auto 100 /uL (0-100); Basophils Percent Auto 1.4 % (0-2); Eosinophils Absolute Auto 100 /uL (0-450); Eosinophils Percent Auto 3.2 % (2-4); Hematocrit 39.5 % (36-46); Hemoglobin 13.2 g/dL (12.0-16.0); Lymphocytes Absolute Auto 1600 /uL (1100-4500); Lymphocytes Percent Auto 37.7 % (25-40); Mean Corpuscular HGB Conc 33.5 % (30-36); Mean Corpuscular Hemoglobin 29.2 PG (26-34); Mean Corpuscular Volume 87.4 fL (80-100); Monocytes Absolute Auto 500 /uL (0-900); Monocytes Percent Auto 12.6 % (3-14); Neutrophils Absolute Auto 1900 /uL (1500-7000); Neutrophils Percent Auto 45.1 % (50-75); Platelet Count 216 X10^3/uL (150-400); Red Blood Cell Count 4.53 X10^6/uL (4.0-5.2); Red Cell Distribution Width 14.2 % (11.6-14.8); White Blood Cell Count 4.3 X10^3/uL (4.5-11.0)
[2024-08-22 08:50] LABS: Hemoglobin A1C% w Est Avg Glu 5.7 % (4.0-6.0)
[2024-08-22 08:57] LABS: Alanine Aminotransferase 15 IU/L (<35); Albumin 4.3 g/dL (3.5-5.0); Albumin Globulin Ratio 1.4 (1.0-2.8); Alkaline Phosphatase 39 U/L (38-126); Aspartate Aminotransferase 26 IU/L (14-36); BUN Creatinine Ratio 22.2 (6-22); Bilirubin Total 0.9 mg/dL (0.2-1.3); Blood Urea Nitrogen 16 mg/dL (7-17); Calcium 9.6 mg/dL (8.4-10.2); Carbon Dioxide 29 mmol/L (22-32); Chloride 103 mmol/L (98-107); Cholesterol 267 mg/dL (140-199); Estimated Glomerular Filt Rate > 60 mL/min (>60); Glucose 96 mg/dL (80-110); HDL Cholesterol 51 mg/dL (40-60); HEMOLYSIS < 15 (0-50); LDL Cholesterol Calculated 181 mg/dL (<100); Sodium 138 mmol/L (137-145); Total Protein 7.3 g/dL (6.3-8.2); Triglycerides 177 mg/dL (35-150)
[2024-08-22 09:02] LABS: High Sensitivity CRP - Cardiac 0.5 mg/L (1.0-3.0)
[2024-08-22 09:27] LABS: TSH w/ Reflex to FT4 1.25 uIU/mL (0.47-4.68)
== END ==
PROVIDERS: PCP Family Medicine; Referring Provider Family Medicine; Visit Provider Family Medicine
DX: E88.810 Metabolic syndrome (principal); E78.2 Mixed hyperlipidemia; E66.9 Obesity, unspecified; Z82.49 Family history of ischemic heart disease and other diseases of the circulatory system; E03.9 Hypothyroidism, unspecified; I10 Essential (primary) hypertension; R13.19 Other dysphagia; Z68.30 Body mass index [BMI] 30.0-30.9, adult; R42 Dizziness and giddiness; L40.0 Psoriasis vulgaris
CPT/HCPCS: 36415; 80053; 80061; 83036; 84443; 85025; 86140

== ENCOUNTER → 2024-10-26 07:31 | Outpatient (CLI) | payer OTHER, SELFPAY ==
[2020-11-20 21:52] VITALS: BMI 35.0
--- NOTE | 2024-10-26 07:32 | DI.MG.S_ITS ---
BILATERAL DIGITAL SCREENING MAMMOGRAM 3D/2D WITH CAD: 10/26/2024 CLINICAL: Routine screening. Comparison is made to exams dated: 10/23/2023 mammogram, 07/16/2022 mammogram, and 06/27/2021 mammogram - [facility]. The breasts are heterogeneously dense, which may obscure small masses (category c / 51-75% glandular tissue). Current study was also evaluated with a Computer Aided Detection (CAD) system. No significant masses, calcifications, or other findings are seen in either breast. There has been no significant interval change. IMPRESSION: NEGATIVE There is no mammographic evidence of malignancy. A 1 year screening mammogram is recommended. Based on the Tyrer Cuzick model (a risk assessment model) the patient's lifetime risk is 7.3% and her 10 year risk is 3.2%. According to the ACR, ACS, and NCCN guidelines, an annual breast MRI exam along with mammogram is recommended if the patient's lifetime risk is 20% or greater. This exam was interpreted at Station ID: [id number]. NOTE: For mammograms, a report in lay terms will be sent to the patient. Approximately 15% of breast malignancies will not be visualized mammographically. In the management of a palpable breast mass, a negative mammogram must not discourage biopsy of a clinically suspicious lesion. Electronically Signed By: Skyler ochoa/rishi:10/26/2024 18:06:24 copy to: Kimi Healy letter sent: Normal Exam ACR BI-RADS Category 1: Negative
== END ==
PROVIDERS: PCP Family Medicine; Referring Provider Family Medicine; Visit Provider Family Medicine
DX: Z12.31 Encounter for screening mammogram for malignant neoplasm of breast (principal); R92.333 Mammographic heterogeneous density, bilateral breasts
CPT/HCPCS: 77063; 77067

== ENCOUNTER → 2024-12-06 09:39 | Outpatient (CLI) | payer OTHER, SELFPAY ==
[2020-11-20 21:52] VITALS: BMI 35.0
--- NOTE | 2024-12-06 09:40 | DI.RAD.S_ITS ---
PROCEDURE: XR DEXA AXIAL SKELETON INDICATIONS: SCREENING FOR OSTEOPOROSIS COMPARISON: None. FINDINGS: Lumbar Spine: Bone mineral density 1.046 g/cm2, T score 0.0. Left Femoral Neck: Bone mineral density 0.855 g/cm2, T score 0.1 Left Hip: Bone mineral density 1.000 g/cm2, T score 0.5. Fracture Risk Calculation (when applicable): 10-year fracture risk of a major osteoporotic fracture 6.2 percent and of a hip fracture 0.2 percent. (T score greater or equal to -1.0 to: NORMAL) (T score from -1.1 to -2.4: OSTEOPENIA) (T score less than or equal to -2.5: OSTEOPOROSIS) IMPRESSION: Normal---recommend repeat DEXA as clinically indicated. Follow-up guidelines as follows: Osteoporosis: Consider a repeat DEXA and Vertebral Fracture Assessment (VFA) exam in 2 years or sooner if medically necessary, to reassess this patient's status. Osteopenia: Consider a repeat DEXA in 2-3 years to reassess this patient's status, or if there is a new clinical indication. Normal: Consider a repeat DEXA in 5 years or sooner, or if there is a new clinical indication. All treatment decisions require clinical judgment and consideration of individual patient factors, including patient preferences, comorbidities, previous drug use, risk factors not captured in the FRAX model (e.g., frailty, falls, vitamin D deficiency, increased bone turnover, interval significant decline in bone density ) and possible under- or over-estimation of fracture risk by FRAX. In addition, the NOF Guide recommends that FDA-approved medical therapies be considered in postmenopausal women and men age >= 50 years with a: * Hip or vertebral (clinical or morphometric) fracture * T-score of <=-2.5 at the spine or hip * Ten-year fracture probability by FRAX of >= 3% for hip fracture or >=20% for major osteoporotic fracture. Dictated by: Shon Gamez M.D. on 12/06/2024 at 21:50 Approved by: Shon Gamez M.D. on 12/06/2024 at 21:51
== END ==
PROVIDERS: PCP Family Medicine; Referring Provider Family Medicine; Visit Provider Family Medicine
DX: K22.70 Barrett's esophagus without dysplasia (principal); Z78.0 Asymptomatic menopausal state
CPT/HCPCS: 77080

== ENCOUNTER 2025-02-02 10:47 | Emergency (ER) | payer OTHER, SELFPAY ==
[2020-11-20 21:52] VITALS: BMI 35.0
[2025-02-02] VITALS (21 sets, daily range): BP systolic 115–152; BP diastolic 58–78; PULSE 54–70; RESP 8–47; TEMP 37.1; O2SAT 96–100; BMI 32.9
--- NOTE | 2025-02-02 10:58 | EKG_ITS ---
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
--- NOTE | 2025-02-02 10:59 | DI.RAD.S_ITS ---
PROCEDURE: XR CHEST 1V INDICATIONS: chest pain TECHNIQUE: One view of the chest was acquired. COMPARISON: [facility], CR, XR CHEST 1V, 06/25/2021, 11:54. [facility], CR, XR CHEST 1V, 11/20/2020, 18:10. FINDINGS AND IMPRESSION: On this single view study, mildly low lung volumes are seen. No consolidation or pleural effusion. Aortic calcifications. Normal heart size. Degenerative osseous changes. Dictated by: Vikram Mcqueen M.D. on 02/02/2025 at 11:31 Approved by: Vikram Mcqueen M.D. on 02/02/2025 at 11:32
[2025-02-02] MEDS: ASPIRIN 81 MG CHEW TAB 324 MG PO (11:15)
[2025-02-02 11:26] LABS: Add Manual Diff / Slide Review NO; Basophils Absolute Auto 100 /uL (0-100); Basophils Percent Auto 1.2 % (0-2); Eosinophils Absolute Auto 200 /uL (0-450); Eosinophils Percent Auto 3.1 % (2-4); Hematocrit 38.8 % (36-46); Hemoglobin 13.3 g/dL (12.0-16.0); Lymphocytes Absolute Auto 1300 /uL (1100-4500); Lymphocytes Percent Auto 21.8 % (25-40); Mean Corpuscular HGB Conc 34.3 % (30-36); Mean Corpuscular Hemoglobin 29.4 PG (26-34); Mean Corpuscular Volume 85.5 fL (80-100); Monocytes Absolute Auto 600 /uL (0-900); Monocytes Percent Auto 10.6 % (3-14); Neutrophils Absolute Auto 3700 /uL (1500-7000); Neutrophils Percent Auto 63.3 % (50-75); Platelet Count 218 X10^3/uL (150-400); Red Blood Cell Count 4.53 X10^6/uL (4.0-5.2); Red Cell Distribution Width 14.4 % (11.6-14.8); White Blood Cell Count 5.8 X10^3/uL (4.5-11.0)
[2025-02-02 11:28] LABS: PTT Partial Thromboplastin Tim 35 SECONDS (25.1-36.5)
[2025-02-02 11:32] LABS: Alanine Aminotransferase 19 IU/L (<35); Albumin 4.6 g/dL (3.5-5.0); Albumin Globulin Ratio 1.5 (1.0-2.8); Alkaline Phosphatase 48 U/L (38-126); Aspartate Aminotransferase 31 IU/L (14-36); Bilirubin Total 0.9 mg/dL (0.2-1.3); Blood Urea Nitrogen 15 mg/dL (7-17); Calcium 9.4 mg/dL (8.4-10.2); Carbon Dioxide 26 mmol/L (22-32); Chloride 102 mmol/L (98-107); Creatine Kinase 118 U/L (30-135); Estimated Glomerular Filt Rate > 60 mL/min (>60); Globulin 3.1 g/dL (1.7-4.1); Glucose 99 mg/dL (80-110); HEMOLYSIS < 15 (0-50); Lipase 148 U/L (23-300); Potassium 3.7 mmol/L (3.4-5.1); Sodium 138 mmol/L (137-145); Total Protein 7.7 g/dL (6.3-8.2)
[2025-02-02 11:43] LABS: NT-proBNP (BNP-Adult 18+) 102 pg/mL (<125); Troponin I < 0.012 ng/mL (0.01-0.034)
--- NOTE | 2025-02-02 12:08 | ED_ITS ---
HPI - Chest Pain <Eamon Castellon MD - Last Filed: 02/03/25 12:46> General Chief Complaint: Chest Pain Stated Complaint: May have had heart attack Time Seen by Provider: 02/02/25 11:57 Source: patient Mode of arrival: Family Vehicle History of Present Illness HPI narrative: Patient had sudden onset of intra scapular back pain radiating to the neck/back of head at 9:30 a.m. this morning. Lasted 1 minute. No syncope. No numbness tingling or weakness. Denies denies any chest pain or abdominal pain. No nausea or vomiting, did feel a little sweaty. Patient does have history of hypercholesteremia. No family history of coronary disease or aortic dissection or aneurysm. Patient denies any changes in her health recently no fatigue chest pain shortness of breath. No cough cold congestion. No injury to the back. Related Data Home Medications Medication Instructions Recorded Confirmed cholecalciferol (vitamin D3) 50 5,000 unit PO DAILY 07/12/18 02/02/25 mcg (2,000 unit) capsule Saccharomyces boulardii [Daily PO 08/11/24 08/11/24 Probiotic (S. boulardii)] [id number]-[id number]-CF borate PO 08/11/24 08/11/24 [Move [facility]] pantoprazole 20 mg tablet,delayed 20 mg PO DAILY 02/02/25 02/02/25 release (Protonix) Previous Rx's Medication Instructions Recorded sumatriptan succinate 25 mg tablet See Rx Instructions PO .COMPLEX #9 04/05/24 tabs estradiol 0.05 mg/24 hr semiweekly 1 patch transdermal 2XW #24 ea 08/29/24 transdermal patch ezetimibe 10 mg tablet (Zetia) 10 mg PO DAILY #90 tabs 08/29/24 hydrochlorothiazide 25 mg tablet 25 mg PO DAILY #90 tabs 08/29/24 levothyroxine 88 mcg tablet 88 mcg PO DAILY #90 tabs 08/29/24 progesterone micronized 200 mg 200 mg PO BEDTIME #90 caps 08/29/24 capsule (Prometrium) triamcinolone acetonide 0.025 % 1 applic topical DAILY PRN 08/29/24 topical cream psoriasis #15 grams Allergies Allergy/AdvReac Type Severity Reaction Status Date / Time amoxicillin [AMOXICILLIN] Allergy Severe HIVES, Verified 02/02/25 11:05 ANGIOEDEMA clavulanic acid Allergy Severe HIVES, Verified 02/02/25 11:05 [CLAVULANIC ACID] ANGIOEDEMA Penicillins [PENICILLINS] Allergy Unknown Verified 02/02/25 11:05 Review of Systems <Eamon Catsellon MD - Last Filed: 02/03/25 12:46> Review of Systems Narrative: GENERAL: Negative chills, fatigue, malaise, fever, sweats. HEENT: Negative sinus pain, ear pain, sore throat RESPIRATORY: Negative dyspnea, cough CARDIOVASCULAR: Negative chest pain, palpitations, positive back pain GASTROINTESTINAL: Negative vomiting, nausea, abdominal pain : Negative dysuria, frequency, hematuria MUSCULOSKELETAL: Negative muscle or bony pain SKIN: Negative rash, skin lesions NEUROLOGIC: Negative weakness, numbness ROS Unobtainable: All systems reviewed & are unremarkable except as noted in HPI and below Patient History <Eamon Castellon MD - Last Filed: 02/03/25 12:46> Medical History (Updated 02/02/25 @ 17:04 by Eamon Castellon MD) Brain TIA (~2017) Sessile colonic polyp Hypertension Hyperlipidemia Asthma Hay fever Foot pain (~2015) Psoriasis (~1989) Shingles (~06/09/16) Chicken pox (~1965) Vertigo (~2009) Hypothyroidism (~2012) Surgical History History of left breast biopsy Anesthesia History of eyelid surgery (~2013) Status post endometrial ablation (~2006) Status post knee surgery (~2012) History of tonsillectomy (~1965) Family History Mother Heart disease High cholesterol Mental health problem Diabetes mellitus Grandfather Stroke Grandmother Stroke Grandfather Cancer Social History household members: spouse Smoking Status: Former smoker alcohol intake: never substance use type: does not use Smoking Status: Former smoker tobacco type: cigarettes alcohol intake frequency: holidays/special occasions only Exam <Eamon Castellon MD - Last Filed: 02/03/25 12:46> Narrative Exam Narrative: GENERAL: in no distress, not toxic not dyspneic HEAD: Normocephalic. EYES: Pupils equal round ENT: Mucous membranes moist. NECK: Trachea midline. CARDIOVASCULAR: Regular rate and rhythm RESPIRATORY: Clear to auscultation. Breath sounds equal bilaterally. No wheezes, rales, or rhonchi. GASTROINTESTINAL: Abdomen soft, non-tender EXTREMITIES: No gross deformities. BACK: No flank tenderness. NEURO: AOx4. Clear speech SKIN: Warm and dry PSYCH: Not anxious, is cooperative Initial Vital Signs Initial Vital Signs: Vital Signs Temperature 98.7 F 02/02/25 11:01 Pulse Rate 64 02/02/25 11:01 Respiratory Rate 17 02/02/25 11:01 Blood Pressure 152/75 H 02/02/25 11:01 Pulse Oximetry 97 02/02/25 11:01 Oxygen Delivery Method Room Air 02/02/25 11:01 <Lilia Rosales MD - Last Filed: 02/02/25 20:11> Initial Vital Signs Initial Vital Signs: Vital Signs Temperature 98.7 F 02/02/25 11:01 Pulse Rate 64 02/02/25 11:01 Respiratory Rate 17 02/02/25 11:01 Blood Pressure 152/75 H 02/02/25 11:01 Pulse Oximetry 97 02/02/25 11:01 Oxygen Delivery Method Room Air 02/02/25 11:01 Course <Eamon Castellon MD - Last Filed: 02/03/25 12:46> Orders Ordered: Discontinued Medications Aspirin (Aspirin 81 Mg Chew Tab) 324 mg PO NOW ONE Stop: 02/02/25 11:00 Last Admin: 02/02/25 11:15 Dose: 324 mg Documented By: TIA Sodium Chloride (Normal Saline 0.9%) 1,000 mls @ 1,000 mls/hr IV BOLUS ONE Stop: 02/02/25 13:06 Last Infusion: 02/02/25 13:12 Dose: Infused Documented By: Admin: 02/02/25 12:24 Dose: 1,000 mls/hr Documented By: TIA Vital Signs Vital signs: Vital Signs - 8 hr 02/02/25 12:28 02/02/25 12:30 02/02/25 12:34 Pulse Rate 67 65 Respiratory Rate 12 Blood Pressure 121/68 Pulse Oximetry 98 98 02/02/25 12:34 02/02/25 13:00 02/02/25 13:00 Pulse Rate 64 63 Respiratory Rate 17 12 Blood Pressure 129/61 Pulse Oximetry 96 97 02/02/25 13:30 02/02/25 13:30 02/02/25 14:00 Pulse Rate 62 70 Respiratory Rate 12 47 H Blood Pressure 129/66 Pulse Oximetry 98 99 02/02/25 14:27 02/02/25 14:27 02/02/25 14:30 Pulse Rate 54 L Respiratory Rate Blood Pressure 126/62 115/58 L Pulse Oximetry 98 02/02/25 14:30 02/02/25 15:00 02/02/25 15:00 Pulse Rate 55 L 55 L Respiratory Rate 8 L Blood Pressure 127/61 Pulse Oximetry 99 98 02/02/25 15:30 02/02/25 15:30 02/02/25 16:00 Pulse Rate 58 L Respiratory Rate 11 L Blood Pressure 146/65 H 121/70 Pulse Oximetry 100 02/02/25 16:00 02/02/25 16:30 02/02/25 16:30 Pulse Rate 60 58 L Respiratory Rate 14 18 Blood Pressure 136/60 Pulse Oximetry 98 98 02/02/25 17:59 02/02/25 18:00 02/02/25 18:30 Pulse Rate 64 68 68 Respiratory Rate 18 Blood Pressure Pulse Oximetry 98 98 98 <Lilia Rosales MD - Last Filed: 02/02/25 20:11> Orders Ordered: Discontinued Medications Aspirin (Aspirin 81 Mg Chew Tab) 324 mg PO NOW ONE Stop: 02/02/25 11:00 Last Admin: 02/02/25 11:15 Dose: 324 mg Documented By: TIA Sodium Chloride (Normal Saline 0.9%) 1,000 mls @ 1,000 mls/hr IV BOLUS ONE Stop: 02/02/25 13:06 Last Infusion: 02/02/25 13:12 Dose: Infused Documented By: Admin: 02/02/25 12:24 Dose: 1,000 mls/hr Documented By: TIA Vital Signs Vital signs: Vital Signs - 8 hr 02/02/25 12:28 02/02/25 12:30 02/02/25 12:34 Pulse Rate 67 65 Respiratory Rate 12 Blood Pressure 121/68 Pulse Oximetry 98 98 02/02/25 12:34 02/02/25 13:00 02/02/25 13:00 Pulse Rate 64 63 Respiratory Rate 17 12 Blood Pressure 129/61 Pulse Oximetry 96 97 02/02/25 13:30 02/02/25 13:30 02/02/25 14:00 Pulse Rate 62 70 Respiratory Rate 12 47 H Blood Pressure 129/66 Pulse Oximetry 98 99 02/02/25 14:27 02/02/25 14:27 02/02/25 14:30 Pulse Rate 54 L Respiratory Rate Blood Pressure 126/62 115/58 L Pulse Oximetry 98 02/02/25 14:30 02/02/25 15:00 02/02/25 15:00 Pulse Rate 55 L 55 L Respiratory Rate 8 L Blood Pressure 127/61 Pulse Oximetry 99 98 02/02/25 15:30 02/02/25 15:30 02/02/25 16:00 Pulse Rate 58 L Respiratory Rate 11 L Blood Pressure 146/65 H 121/70 Pulse Oximetry 100 02/02/25 16:00 02/02/25 16:30 02/02/25 16:30 Pulse Rate 60 58 L Respiratory Rate 14 18 Blood Pressure 136/60 Pulse Oximetry 98 98 02/02/25 17:59 02/02/25 18:00 02/02/25 18:30 Pulse Rate 64 68 68 Respiratory Rate 18 Blood Pressure Pulse Oximetry 98 98 98 MDM - Chest Pain <Eamon Castellon MD - Last Filed: 02/03/25 12:46> Lab Data 02/02/25 11:00 02/02/25 11:00 Labs: Lab Results 02/02/25 02/02/25 Range/Units 11:00 13:11 WBC 5.8 (4.5-11.0) X10^3/uL RBC 4.53 (4.0-5.2) X10^6/uL Hgb 13.3 (12.0-16.0) g/dL Hct 38.8 (36-46) % MCV 85.5 (80-100) fL MCH 29.4 (26-34) PG MCHC 34.3 (30-36) % RDW 14.4 (11.6-14.8) % Plt Count 218 (150-400) X10^3/uL Neut % (Auto) 63.3 (50-75) % Lymph % (Auto) 21.8 L (25-40) % [place] % (Auto) 10.6 (3-14) % Eos % (Auto) 3.1 (2-4) % Baso % (Auto) 1.2 (0-2) % Neut # (Auto) 3700 (7964-8172) /uL Lymph # (Auto) 1300 (2810-8375) /uL [place] # (Auto) 600 (0-900) /uL Eos # (Auto) 200 (0-450) /uL Baso # (Auto) 100 (0-100) /uL PT 11.0 (9.4-12.5) SECONDS INR 1.0 (0.9-1.3) APTT 35 (25.1-36.5) SECONDS Sodium 138 (137-145) mmol/L Potassium 3.7 (3.4-5.1) mmol/L Chloride 102 (98-107) mmol/L Carbon Dioxide 26 (22-32) mmol/L BUN 15 (7-17) mg/dL Creatinine 0.75 (0.52-1.04) mg/dL Estimated GFR > 60 (>60) mL/min BUN/Creatinine Ratio 20.0 (6-22) Glucose 99 (80-110) mg/dL Calcium 9.4 (8.4-10.2) mg/dL Magnesium 2.0 (1.6-2.3) mg/dL Total Bilirubin 0.9 (0.2-1.3) mg/dL AST 31 (14-36) IU/L ALT 19 (<35) IU/L Alkaline Phosphatase 48 (38-126) U/L Total Creatine Kinase 118 96 (30-135) U/L Troponin I < 0.012 < 0.012 (0.01-0.034) ng/mL NT-Pro-B Natriuret Pep 102 (<125) pg/mL Total Protein 7.7 (6.3-8.2) g/dL Albumin 4.6 (3.5-5.0) g/dL Globulin 3.1 (1.7-4.1) g/dL Albumin/Globulin Ratio 1.5 (1.0-2.8) Lipase 148 (23-300) U/L Imaging Data Chest x-ray: Radiologist's Impression: [address] [address] XRay Report Signed Patient: Ewa Heaton MR#: [id number] : 1960 Acct:[id number] Age/Sex: 64 / F Date of Service: 02/02/25 Loc: ED Accession Number: [id number] Procedure: XR chest 1V Ordering Provider: Emaon Castellon MD PROCEDURE: XR CHEST 1V INDICATIONS: chest pain TECHNIQUE: One view of the chest was acquired. COMPARISON: [facility], CR, XR CHEST 1V, 06/25/2021, 11:54. [facility], CR, XR CHEST 1V, 11/20/2020, 18:10. FINDINGS AND IMPRESSION: On this single view study, mildly low lung volumes are seen. No consolidation or pleural effusion. Aortic calcifications. Normal heart size. Degenerative osseous changes. Dictated by: Vikram Mcqueen M.D. on 02/02/2025 at 11:31 Approved by: Vikram Mcqueen M.D. on 02/02/2025 at 11:32 CT angio chest abdomen pelvis: Radiologist's Impression: [place] [address] CT Scan Report Signed Patient: Ewa Heaton MR#: [id number] : 1960 Acct:[id number] Age/Sex: 64 / F Date of Service: 02/02/25 Loc: ED Accession Number: [id number] Procedure: CT angio chest abdomen pelvis Ordering Provider: Eamon Castellon MD PROCEDURE: CT ANGIO CHEST ABDOMEN PELVIS INDICATIONS: Chest pain/back pain TECHNIQUE: Precontrast 5 mm thick sections acquired from the lung apices to the iliac crests. After the administration of intravenous contrast, 2.5 mm thick sections again acquired from the lung apices to the iliac crests. Maximum intensity projection (MIP) oblique sagittal and coronal reformats were then acquired. For radiation dose reduction, the following was used: automated exposure control. COMPARISON: None. FINDINGS: Image quality: Diagnostic Lungs and pleura: No dense airspace disease. No pleural effusions. No pneumothorax. There are pulmonary nodules, measuring up to 6-7 mm on the left (6/195). Atelectasis also present in the superior portion of the left medial lower lobe. Mediastinum, heart, and esophagus: No intramural hematoma. Atherosclerotic calcifications are present [id number]. Multi-vessel coronary calcifications. No acute aortic dissection. No central pulmonary embolism. Small hiatal hernia. No pathologic lymphadenopathy by size criteria. Chest wall and thyroid: Unremarkable Liver: Unremarkable Gallbladder and biliary system: Unremarkable, nondilated Pancreas: No ductal dilation. There is a moderate-sized duodenal diverticulum adjacent to the ampulla Spleen: Nonenlarged Adrenals: 1 cm left and 1 cm right adrenal nodules are present. Mild bilateral renal pelviectasis. No definite obstructing stone. Kidneys: No solid renal mass. Mild bilateral pelviectasis. No obstructing calcified stone. Vessels and lymph nodes: No abdominal aortic aneurysm. Mild atherosclerotic calcifications are seen. No aortic dissection. No pathologic lymph nodes by size criteria. Bowel and peritoneum: No small bowel obstruction. No drainable abscess or ascites. Nondilated appendix Body wall: Unremarkable Pelvis: Numerous pelvic phleboliths. Anterior lower uterine segment hypoattenuating region measures 1.2 cm. Pelvic organs otherwise not well assessed on CT Bones: No aggressive appearing osseous abnormality. There are degenerative changes. IMPRESSION: No intramural hematoma. No acute aortic dissection. Multiple pulmonary nodules measuring up to 6-7 mm, consider 6 month follow-up chest CT. Multi-vessel coronary calcifications. 1 cm bilateral adrenal nodules probably adenomas, which could be confirmed with adrenal protocol imaging non urgently. Anterior lower uterine segment hypoattenuation region measuring 1.2 cm. Differential includes a small fibroid. Consider pelvic ultrasound non urgently for further evaluation. Other findings above. Dictated by: Vikram Mcqueen M.D. on 02/02/2025 at 12:49 Approved by: Vikram Mcqueen M.D. on 02/02/2025 at 12:[address] [facility] Narrative Medical decision making narrative: Patient had sudden onset of intrascapular back pain radiating to the neck/back of head at 9:30 a.m. this morning. Lasted 1 minute. No syncope. No numbness tingling or weakness. Denies denies any chest pain or abdominal pain. No nausea or vomiting, did feel a little sweaty. Patient does have history of hypercholesteremia. No family history of coronary disease or aortic dissection or aneurysm. Patient denies any changes in her health recently no fatigue chest pain shortness of breath. No cough cold congestion. No injury to the back. After history and exam, CBC CMP troponin chest x-ray EKG CT chest normal saline [facility] Medical records reviewed: No recent visit for this complaint Differential considered: Includes but not limited to STEMI non-STEMI angina aortic dissection aneurysm Lab Test results independently reviewed as above. Pertinent findings: Troponin less than 0.012 x2 Independently reviewed EKG normal sinus rhythm normal EKG rate 66 Imaging studies independently reviewed: Chest x-ray no acute finding CT angio chest abdomen pelvis multivessel coronary calcifications otherwise no acute finding Consultations: 3:30 p.m.. Spoke with Cardiology, Dr. Veras, recommends patient to have stress test, may need transfer Re-evaluations: 4:00 p.m.. Updated patient results. My discussion with Cardiology, she does agree for transfer/stress test as we do not have that available here this weekend Discussion: Appropriate for transfer her stress test. Currently chest pain- free. 6:[address] Castellon: Sign out to Dr. Rosales, awaiting for facility called back for acceptance for stress test. None available this weekend here. Cardiology has been contacted. And recommends transfer for stress test. Atypical chest pain. Diagnosis: Atypical chest pain, needs stress test which is not available now or over the weekend at [facility]. Not on hep, now pain free, no nitrates <Lilia Rosales MD - Last Filed: 02/02/25 20:11> Lab Data Labs: Lab Results 02/02/25 02/02/25 Range/Units 11:00 13:11 WBC 5.8 (4.5-11.0) X10^3/uL RBC 4.53 (4.0-5.2) X10^6/uL Hgb 13.3 (12.0-16.0) g/dL Hct 38.8 (36-46) % MCV 85.5 (80-100) fL MCH 29.4 (26-34) PG MCHC 34.3 (30-36) % RDW 14.4 (11.6-14.8) % Plt Count 218 (150-400) X10^3/uL Neut % (Auto) 63.3 (50-75) % Lymph % (Auto) 21.8 L (25-40) % [place] % (Auto) 10.6 (3-14) % Eos % (Auto) 3.1 (2-4) % Baso % (Auto) 1.2 (0-2) % Neut # (Auto) 3700 (9916-0399) /uL Lymph # (Auto) 1300 (3525-0591) /uL [place] # (Auto) 600 (0-900) /uL Eos # (Auto) 200 (0-450) /uL Baso # (Auto) 100 (0-100) /uL PT 11.0 (9.4-12.5) SECONDS INR 1.0 (0.9-1.3) APTT 35 (25.1-36.5) SECONDS Sodium 138 (137-145) mmol/L Potassium 3.7 (3.4-5.1) mmol/L Chloride 102 (98-107) mmol/L Carbon Dioxide 26 (22-32) mmol/L BUN 15 (7-17) mg/dL Creatinine 0.75 (0.52-1.04) mg/dL Estimated GFR > 60 (>60) mL/min BUN/Creatinine Ratio 20.0 (6-22) Glucose 99 (80-110) mg/dL Calcium 9.4 (8.4-10.2) mg/dL Magnesium 2.0 (1.6-2.3) mg/dL Total Bilirubin 0.9 (0.2-1.3) mg/dL AST 31 (14-36) IU/L ALT 19 (<35) IU/L Alkaline Phosphatase 48 (38-126) U/L Total Creatine Kinase 118 96 (30-135) U/L Troponin I < 0.012 < 0.012 (0.01-0.034) ng/mL NT-Pro-B Natriuret Pep 102 (<125) pg/mL Total Protein 7.7 (6.3-8.2) g/dL Albumin 4.6 (3.5-5.0) g/dL Globulin 3.1 (1.7-4.1) g/dL Albumin/Globulin Ratio 1.5 (1.0-2.8) Lipase 148 (23-300) U/L MDM Narrative Medical decision making narrative: Patient had sudden onset of intrascapular back pain radiating to the neck/back of head at 9:30 a.m. this morning. Lasted 1 minute. No syncope. No numbness tingling or weakness. Denies denies any chest pain or abdominal pain. No nausea or vomiting, did feel a little sweaty. Patient does have history of hypercholesteremia. No family history of coronary disease or aortic dissection or aneurysm. Patient denies any changes in her health recently no fatigue chest pain shortness of breath. No cough cold congestion. No injury to the back. After history and exam, CBC CMP troponin chest x-ray EKG CT chest normal saline MDM Medical records reviewed: No recent visit for this complaint Differential considered: Includes but not limited to STEMI non-STEMI angina aortic dissection aneurysm Lab Test results independently reviewed as above. Pertinent findings: Troponin less than 0.012 x2 Independently reviewed EKG normal sinus rhythm normal EKG rate 66 Imaging studies independently reviewed: Chest x-ray no acute finding CT angio chest abdomen pelvis multivessel coronary calcifications otherwise no acute finding Consultations: 3:30 p.m.. Spoke with Cardiology, Dr. Veras, recommends patient to have stress test, may need transfer Re-evaluations: 4:00 p.m.. Updated patient results. My discussion with Cardiology, she does agree for transfer/stress test as we do not have that available here this weekend Discussion: Appropriate for transfer her stress test. Currently chest pain- free. 6:[address] Castellon: Sign out to Dr. Rosales, awaiting for facility called back for acceptance for stress test. None available this weekend here. Cardiology has been contacted. And recommends transfer for stress test. Atypical chest pain. Diagnosis: Atypical chest pain, needs stress test which is not available now or over the weekend at [facility]. Not on hep, now pain free, no nitrates 8pm care is assumed, patient is independently evaluated chart is reviewed Patient would very much like to be discharged home. We still do not have hospital with bed availability for her. In reviewing her presentation, her heart score is 2 based on her risk and hypertension and hyperlipidemia. Her presentation is quite atypical. She does have immediate access to her primary care physician and I do believe discharge home with close follow-up with her primary care physician in an outpatient nuclear medicine stress test is going to be appropriate. With shared decision- making we opted to agree to disagree about staying for hospital admission and agree that she will sign out formally against medical advice. Reviewed all findings for immediate follow up and contact and hearing her primary care physician in recognizing that if she has any further symptoms she does need to return to the ER. We will also recommend a baby aspirin a day until further evaluated by her primary care physician. Discharge Plan Departure Patient Disposition: Left Against Medical Advice Clinical Impression: Atypical chest pain Instructions: DI for Atypical Chest Pain Activity Restrictions/Additional Instructions: Thank you for coming into With your atypical chest pain, your findings were reviewed with the on-call steam box hand with decision to keep you in the hospital to do an immediate nuclear medicine stress test to help further stratify your cardiac risk. The fact that you have been pain-free, your CT angiogram did not show dissection or pulmonary embolism, you are 1st and 2nd troponins were unremarkable and you have a HEART score of 2 which puts you at 0.9-1.7% of a major adverse cardiac event within the next 30 days. Please contact your primary care physician, we will make sure she gets a copy of this note as well. She can help you schedule an outpatient nuclear medicine heart stress test. I would recommend adding a baby aspirin daily to your current regimen If you have any pain, shortness of breath nausea or new symptoms of any concern, please return to the ER and we will take good care of you Prescriptions: No Action sumatriptan succinate 25 mg tablet See Rx Instructions PO .COMPLEX Qty: 9 0RF Patient Comments: 1 migraine per month Rx Instructions: take 1 tab at onset of headache; if no relief may repeat 1 tab after at least 2 hrs; max = 4 tabs/24 hr PO ezetimibe [Zetia] 10 mg tablet 10 mg PO DAILY Qty: 90 3RF hydrochlorothiazide 25 mg tablet 25 mg PO DAILY Qty: 90 3RF levothyroxine 88 mcg tablet 88 mcg PO DAILY Qty: 90 3RF triamcinolone acetonide 0.025 % cream 1 applic topical DAILY PRN (Reason: psoriasis) Qty: 15 5RF progesterone micronized [Prometrium] 200 mg capsule 200 mg PO BEDTIME Qty: 90 1RF estradiol 0.05 mg/24 hr patch semiweekly 1 patch transdermal 2XW Qty: 24 3RF Rx Instructions: apply 1 patch for 3 days alternating with 1 patch for 4 days each week for 3 wks per 4-wk cycle cholecalciferol (vitamin D3) 2,000 unit capsule 5,000 unit PO DAILY [id number]-bedea-CF borate [Move [facility] [employer] [facility]] PO Saccharomyces boulardii [Daily Probiotic (S. boulardii)] PO pantoprazole [Protonix] 20 mg Tablet,Delayed Release (Dr/Ec) 20 mg PO DAILY Referrals: Claudia Miguel DO [Primary Care Provider] - Stand Alone Forms: Patient Portal/API, Against Med. Advice (Lao)
[2025-02-02] MEDS: SODIUM CHLORIDE 0.9% 1,000 ML 1000 ML IV (12:24)
[2025-02-02 13:37] LABS: Creatine Kinase 96 U/L (30-135)
[2025-02-02 13:49] LABS: Troponin I < 0.012 ng/mL (0.01-0.034)
== END 2025-02-02 20:25 | disposition left against medical advice (07) ==
PROVIDERS: Emergency Medicine; Emergency Provider Emergency Medicine; PCP Family Medicine
DX: R07.89 Other chest pain (principal); I10 Essential (primary) hypertension; E78.5 Hyperlipidemia, unspecified; Z87.891 Personal history of nicotine dependence
CPT/HCPCS: 36415; 71045; 71275; 74174; 80053; 82550; 83690; 83735; 83880; 84484; 85025; 85610; 85730; 93005; 93010; 96360; 99284; Q9967

== ENCOUNTER → 2025-02-20 15:01 | Outpatient (CLI) | payer OTHER, SELFPAY ==
[2020-11-20 21:52] VITALS: BMI 35.0
--- NOTE | 2025-02-20 | DI.NM.S_ITS ---
PROCEDURE: NM KORTNEY PERF SPECT REST & STR Rest and exercise myocardial perfusion SPECT with gated imaging and ejection fraction RADIOPHARMACEUTICAL: 25.3 mCi Tc-99m sestamibi IV at rest and 26.5 mCi Tc-99m sestamibi IV at peak exercise. A two day-protocol was performed. INDICATIONS: CHEST PAIN TECHNIQUE: Radiopharmaceutical was injected at peak stress test, and also at rest. SPECT images were obtained. SPECT myocardial perfusion images were displayed in short axis, horizontal long axis, and vertical long axis views. Gated images were reviewed using [employer] software. COMPARISON: None. CARDIAC STRESS: A standard Faisal treadmill exercise tolerance test was performed by the patient under the supervision of an attending staff. The patient exercised for 6 minutes and 26 seconds; functional aerobic impairment (AZRA) is +5%. Hemodynamic data: There is normal blood pressure and heart rate response to exercise stress. Patient achieved 86% of maximum predicted heart rate at peak exercise. Symptoms: Patient denied chest pain during exercise. EKG: No diagnostic EKG changes of ischemia; occasional PACs present during recovery. FINDINGS: Raw data: There is good myocardial labeling by radiotracer. No significant motion artifacts. Pshi-[id number] ratio is 0.24 (normal is less than 0.38 for sestamibi tracer, and less than 0.50 for thallium tracer). Left ventricle function: Gated images demonstrate normal left ventricle wall thickening. No segmental wall motion abnormality. No transient ischemic dilation; TID is 1/05 (normal less than 1.3). The left ventricle resting end-diastolic volume is 88 mL. Left ventricle stress ejection fraction is 68%; normal values are above 45%. Myocardial perfusion: Mildly intense fixed apical defect that resolves with prone imaging, suggesting artifact. No ischemia and no infarction present. IMPRESSION: Low risk, normal treadmill nuclear stress test from inducible ischemia standpoint. 1) Mildly intense fixed apical defect that resolves with prone imaging, suggesting artifact. No ischemia and no infarction present. 2) Normal left ventricular size, wall motion, and systolic function (EF post stress 68%). 3) No diagnostic ST changes during exercise or recovery. 4) No angina during the study. 5) Fair exercise tolerance (7METs, AZRA +5%). Target heart rate reached. Appropriate BP response to exercise. 6) Compared to the nuc stress done 11/21/2020, no significant change. Dictated by: Shasta Negron MD on 02/28/2025 at 16:29 Approved by: Shasta Negron MD on 02/28/2025 at 16:33
== END ==
LOC: NUCM 15:02
PROVIDERS: PCP Family Medicine; Referring Provider Family Medicine; Visit Provider Family Medicine
DX: R07.9 Chest pain, unspecified (principal); I10 Essential (primary) hypertension; E78.5 Hyperlipidemia, unspecified
CPT/HCPCS: 78452; 93017; A9502

== ENCOUNTER → 2025-03-14 06:39 | Outpatient (CLI) | payer OTHER, SELFPAY ==
[2020-11-20 21:52] VITALS: BMI 35.0
--- NOTE | 2025-03-14 06:40 | DI.US.S_ITS ---
PROCEDURE: US PELVIC COMPLETE INDICATIONS: UTERINE MASS ON CT TECHNIQUE: Real-time scanning was performed of the pelvic organs, with image documentation. Additional endovaginal scanning was necessary due to incomplete visualization of the adnexal and endometrial structures by transabdominal scanning. COMPARISON: [facility], CT, CT ANGIO CHEST ABDOMEN PELVIS, 02/02/2025, 12:17. FINDINGS: Uterus: Uterus is retroverted. Overall uterus measures 5.6 x 4 x 4.9 cm. Endometrium measures 3 mm, with small amount of endometrial fluid. There is a 1.5 x 1.3 cm cyst in the lower uterine segment within the endometrium. Multiple intramural fibroids are also seen, measuring up to 1.4 x 1.3 cm at the right anterior region and 1.1 x 1 cm in the left posterior region. Ovaries: Not visualized, possibly atrophic Other: No pathologic free abdominal or pelvic fluid. IMPRESSION: Lower uterine segment cyst within the endometrium measuring up to 1.5 x 1.3 cm, likely corresponding to the CT abnormality. Endometrium measures 3 mm with minimal internal fluid. Multiple small fibroids mostly intramural measuring up to 1.4 cm. Dictated by: Vikram Mcqueen M.D. on 03/14/2025 at 7:56 Approved by: Vikram Mcqueen M.D. on 03/14/2025 at 7:58
== END ==
PROVIDERS: PCP Family Medicine; Referring Provider Family Medicine; Visit Provider Family Medicine
DX: D26.9 Other benign neoplasm of uterus, unspecified (principal); D25.1 Intramural leiomyoma of uterus; N85.8 Other specified noninflammatory disorders of uterus
CPT/HCPCS: 76830; 76856

== ENCOUNTER → 2025-08-06 06:34 | Outpatient (CLI) | payer OTHER, SELFPAY ==
[2020-11-20 21:52] VITALS: BMI 35.0
[2025-08-06 07:47] LABS: Add Manual Diff / Slide Review NO; Hematocrit 39.5 % (36-46); Hemoglobin 13.4 g/dL (12.0-16.0); Lymphocytes Absolute Auto 1500 /uL (1100-4500); Mean Corpuscular HGB Conc 33.9 % (30-36); Mean Corpuscular Hemoglobin 29.0 PG (26-34); Mean Corpuscular Volume 85.6 fL (80-100); Platelet Count 242 X10^3/uL (150-400)
[2025-08-06 07:57] LABS: Hemoglobin A1C% w Est Avg Glu 5.7 % (4.0-6.0)
[2025-08-06 08:02] LABS: Alanine Aminotransferase 14 IU/L (<35); Albumin 4.2 g/dL (3.5-5.0); Albumin Globulin Ratio 1.6 (1.0-2.8); Alkaline Phosphatase 42 U/L (38-126); Blood Urea Nitrogen 14 mg/dL (7-17); Calcium 9.3 mg/dL (8.4-10.2); Carbon Dioxide 28 mmol/L (22-32); Chloride 104 mmol/L (98-107); Cholesterol 242 mg/dL (140-199); Estimated Glomerular Filt Rate > 60 mL/min (>60); Globulin 2.7 g/dL (1.7-4.1); Glucose 96 mg/dL (70-99); HDL Cholesterol 58 mg/dL (40-60); HEMOLYSIS < 15 (0-50); Potassium 4.4 mmol/L (3.4-5.1); Sodium 138 mmol/L (137-145); Total Protein 6.9 g/dL (6.3-8.2); Triglycerides 126 mg/dL (35-150)
[2025-08-06 08:32] LABS: Cortisol AM (Before 10AM) 10.9 ug/dL (4.46-22.7)
[2025-08-06 08:33] LABS: TSH w/ Reflex to FT4 1.48 uIU/mL (0.47-4.68)
[2025-08-06 08:53] LABS: Vitamin B12 762 pg/mL (239-931)
[2025-08-07 09:23] LABS: Magnesium 2.0 mg/dL (1.6-2.3)
[2025-08-08 21:26] LABS: Folate 18.2 ng/mL (2.76-20.0)
== END ==
PROVIDERS: PCP Family Medicine; Referring Provider Family Medicine; Visit Provider Family Medicine
DX: E03.9 Hypothyroidism, unspecified (principal); E27.9 Disorder of adrenal gland, unspecified; E78.5 Hyperlipidemia, unspecified; K22.70 Barrett's esophagus without dysplasia; R73.03 Prediabetes; R91.8 Other nonspecific abnormal finding of lung field
CPT/HCPCS: 36415; 80053; 80061; 82533; 82607; 82627; 82746; 83036; 83735; 84443; 85025

== ENCOUNTER → 2025-08-10 06:29 | Outpatient (CLI) | payer OTHER, SELFPAY ==
[2020-11-20 21:52] VITALS: BMI 35.0
--- NOTE | 2025-08-10 06:32 | DI.CT.S_ITS ---
PROCEDURE: CT ABDOMEN ADRENAL PROTOCOL INDICATIONS: pulmonary nodules TECHNIQUE: Noncontrast 3 mm thick sections acquired from the diaphragms to the iliac crests. After the administration of intravenous contrast, 3 mm thick venous-phase and 15- minute delayed images acquired from the diaphragms to the iliac crests. For radiation dose reduction, the following was used: automated exposure control, adjustment of mA and/or kV according to patient size. COMPARISON: [facility], CT, CT ANGIO CHEST ABDOMEN PELVIS, 02/02/2025, 12:17. [facility], CT, CT CHEST WO CON, 08/10/2025, 7:10. FINDINGS: Image quality: Diagnostic Lower chest: Lung bases appear unremarkable. Small hiatal hernia. Normal heart size Liver: Unremarkable Gallbladder and biliary system: Cholelithiasis, nondilated. Multiple duodenal diverticula are seen adjacent to the ampulla Pancreas: No ductal dilation Spleen: Nonenlarged Adrenals: 1.1 cm right adrenal adenoma, with lipid rich contents on precontrast imaging. 1.1 cm left adrenal adenoma, fulfilling both absolute and relative washout criteria (63 and 52%). Kidneys: No hydronephrosis. No solid renal mass Vessels and lymph nodes: The main portal vein is patent. Mild aortoiliac atherosclerotic calcifications. No abdominal aortic aneurysm. No enlarged lymph nodes by size criteria. Bowel and peritoneum: No bowel obstruction. Moderate colonic fecal loading. No drainable abscess or ascites. Body wall: Unremarkable Bones: There are degenerative osseous changes. No aggressive appearing osseous abnormality. IMPRESSION: Bilateral 1.1 cm adrenal nodules are seen, with imaging characteristics compatible with adenomas. Correlate with biochemical testing to assess functional status. Other findings above. Dictated by: Vikram Mcqueen M.D. on 08/10/2025 at 8:27 Approved by: Vikram Mcqueen M.D. on 08/10/2025 at 8:42
--- NOTE | 2025-08-10 06:32 | DI.CT.S_ITS ---
PROCEDURE: CT CHEST WO CON INDICATIONS: pulmonary nodules TECHNIQUE: Noncontrast 5 mm thick sections acquired from the pulmonary apices to the posterior costophrenic angles. 1 mm lung window, 5 mm thick coronal and sagittal and 7 mm axial MIP reformats were then acquired. For radiation dose reduction, the following was used: automated exposure control, adjustment of mA and/or kV according to patient size. COMPARISON: None. FINDINGS: Image quality: Diagnostic. Lower Neck: No enlarged lymph nodes. Thyroid: No thyroid nodules which require sonographic follow up, per consensus guidelines. Axillae: No enlarged lymph nodes. Chest Wall: Unremarkable. Bones: Unremarkable. Lungs and Pleura: No pneumothorax or pleural effusions. No consolidation or suspicious nodules. Stable bilateral solid pulmonary nodules, for example a right lower lobe nodule measuring 0.5 cm (3/252), and a 0.6 cm nodule in the left lower lobe (3/193). Heart: [id number] coronary artery calcifications. Heart size is normal. No pericardial effusion. Thoracic Vessels: The aorta and pulmonary arteries demonstrate normal size. Mediastinum and Annalisa: No enlarged lymph nodes. Esophagus: No wall thickening. Small gastric hiatal hernia. Upper Abdomen: Visualized upper abdomen solid organs and bowel loops appear normal. IMPRESSION: Stable solid pulmonary nodules bilaterally measuring up to 6 mm. Per Fleischner recommendations, additional follow-up with low-dose CT chest at 18-24 months from study on 02/02/2025 is recommended for high-risk patients. Dictated by: Leann Wilson M.D. on 08/12/2025 at 13:45 Approved by: Leann Wilson M.D. on 08/12/2025 at 13:52
== END ==
LOC: CT 06:31
PROVIDERS: PCP Family Medicine; Referring Provider Family Medicine; Visit Provider Family Medicine
DX: D35.02 Benign neoplasm of left adrenal gland (principal); D35.01 Benign neoplasm of right adrenal gland; R91.8 Other nonspecific abnormal finding of lung field; K44.9 Diaphragmatic hernia without obstruction or gangrene; K57.10 Diverticulosis of small intestine without perforation or abscess without bleeding; K80.20 Calculus of gallbladder without cholecystitis without obstruction; I70.0 Atherosclerosis of aorta; I25.10 Atherosclerotic heart disease of native coronary artery without angina pectoris
CPT/HCPCS: 71250; 74170; Q9967